=== PATIENT | male | born 1955 | race Caucasian/White ===

== ENCOUNTER 2017-05-03 19:04 | Emergency (ER) | payer OTHER ==
--- NOTE | 2017-05-03 20:48 | ERPHSYRPT ---
- History of Present Illness Time Seen by Provider: 05/03/17 19:44 Source: patient Patient Subjective Stated Complaint: had rt shoulder surgery yesterday and was outpt. 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 rt radial pulse present. Triage Nursing Assessment: see above Physician History: CC: bleeding on dressing Hx: 61 y/o patient had right rotator cuff surgery per Dr Bill yesterday at [facility]. He has Q ball pump. Pain ok taking norco. He noted blood saturating the dressing tonite so he came to ER. No fever or chills. No blood thinners. No injury. No other bleeding. ILL: COPD MEds: [place] Social: Smoker Allergies/Adverse Reactions: No Known Drug Allergies Allergy (Verified 05/03/17 19:40) Home Medications: Hydrocodone/Acetaminophen [[place] 5-325 Tablet] 1 each PO QIDPRN PRN 05/03/17 [ History] Hx Tetanus, Diphtheria Vaccination/Date Given: Yes Hx Influenza Vaccination/Date Given: No Hx Pneumococcal Vaccination/Date Given: No Immunizations Up to Date: Yes - Review of Systems Constitutional: No Fever, No Chills Musculoskeletal: Joint Pain (right shoulder post op) - Past Medical History Pertinent Past Medical History: Yes Neurological History: No Pertinent History ENT History: No Pertinent History Cardiac History: No Pertinent History Respiratory History: No Pertinent History Endocrine Medical History: No Pertinent History Musculoskeletal History: Arthritis GI Medical History: No Pertinent History History: No Pertinent History Psycho-Social History: Anxiety, Panic Disorder Male Reproductive Disorders: No Pertinent History Other Medical History: shoulder - Past Surgical History Past Surgical History: Yes Neuro Surgical History: No Pertinent History Cardiac: No Pertinent History Respiratory: No Pertinent History Gastrointestinal: Hernia Repair Genitourinary: No Pertinent History Musculoskeletal: Orthopedic Surgery Male Surgical History: No Pertinent History Other Surgical History: TONSILS. EXPLORATORY ABD SURGURY, shoulder surgery , knee , both hands - Social History Smoking Status: Current every day smoker How long have you smoked: over 30 yr Exposure to second hand smoke: Yes Drug Use: none Patient Lives Alone: No - Nursing Vital Signs Nursing Vital Signs: Initial Vital Signs Temperature 98.1 F Temperature Source Oral Pulse Rate 83 Respiratory Rate 18 Blood Pressure [Left Arm] 134/91 Pain Intensity 7 - Physical Exam General Appearance: alert Eyes, Ears, Nose, Throat Exam: moist mucous membranes Neck Exam: normal inspection, non-tender, supple Cardiovascular/Respiratory Exam: regular rate/rhythm Neuro/Tendon Exam: normal sensation, normal motor functions Mental Status Exam: alert, oriented x 3, cooperative Skin Exam: warm, dry, No ecchymosis SpO2 Interpretation: normal SpO2: 96 Oxygen Delivery: Room Air Comments: right shoulder dressing had mild to moderate blood saturating. It was taken down. Wound intact and clear. Mild blood dried but no active bleeding. Redressed wound. Paged Dr Bill. Advised follow up. Will release to continue post op wound care. - Course Nursing assessment & vital signs reviewed: Yes Ordered Tests: Active Orders 24 hr Category Date Time Status Wound Care STAT Care 05/03/17 19:48 Active - Departure Time of Disposition: 20:48 Departure Disposition: Home Clinical Impression: post op bleeding right shoulder Condition: Stable Critical Care Time: No Referrals: LINH MCMILLAN [Primary Care Provider] - VERONICA BILL [ACTIVE STAFF] - Instructions: Rotator Cuff Repair Additional Instructions: Continue normal post op care as already instructed. Call Dr Bill in AM. Return for problems or concerns.
[2017-05-03 20:56] VITALS: BP 128/63; PULSE 86; O2SAT 97
== END 2017-05-03 20:55 | disposition home or self-care (01) ==
LOC: ED 19:04
DX: T81.31XA Disruption of external operation (surgical) wound, not elsewhere classified, initial encounter (principal); M96.831 Postprocedural hemorrhage of a musculoskeletal structure following other procedure
CPT/HCPCS: 99284

== ENCOUNTER 2017-09-15 23:30 | Emergency (ER) | payer OTHER ==
--- NOTE | 2017-09-16 00:24 | ERPHSYRPT ---
- History of Present Illness Time Seen by Provider: 09/16/17 00:18 Source: patient, family Exam Limitations: no limitations Patient Subjective Stated Complaint: sneezed and had bleeding from surgical site to right shoulder Triage Nursing Assessment: old blood noted on dressing. dressing removed from right shoulder and no active bleeding noted. vick intact and suture line clean and dry. Physician History: The patient is a 61-year-old male status post right rotator cuff repair 3 days ago complaining that prior to arrival he sneezed and blood-tinged liquid came out of his wound. The wound does not hurt anymore than it had been since surgery. His was concerned about the blood. It is no longer bleeding. Timing/Duration: today, hour(s) (1) Severity: mild Associated Symptoms: denies symptoms Allergies/Adverse Reactions: No Known Drug Allergies Allergy (Verified 05/03/17 19:40) Home Medications: Hydrocodone/Acetaminophen [[place] 5-325 Tablet] 1 each PO QIDPRN PRN 05/03/17 [ History] Hx Tetanus, Diphtheria Vaccination/Date Given: Yes Hx Influenza Vaccination/Date Given: No Hx Pneumococcal Vaccination/Date Given: No Immunizations Up to Date: Yes - Review of Systems Constitutional: No Fever, No Chills Eyes: No Symptoms Ears, Nose, & Throat: No Symptoms Respiratory: No Cough, No Dyspnea Cardiac: No Chest Pain, No Edema, No Syncope Abdominal/Gastrointestinal: No Abdominal Pain, No Nausea, No Vomiting, No Diarrhea Genitourinary Symptoms: No Dysuria Musculoskeletal: No Back Pain, No Neck Pain Skin: Other (healing wound) Neurological: No Dizziness, No Focal Weakness, No Sensory Changes Psychological: No Symptoms Endocrine: No Symptoms Hematologic/Lymphatic: No Symptoms Immunological/Allergic: No Symptoms All Other Systems: Reviewed and Negative - Past Medical History Pertinent Past Medical History: Yes Neurological History: Stroke ENT History: No Pertinent History Cardiac History: Other Respiratory History: COPD Endocrine Medical History: No Pertinent History Musculoskeletal History: No Pertinent History GI Medical History: No Pertinent History History: No Pertinent History Psycho-Social History: Anxiety, Panic Disorder Male Reproductive Disorders: No Pertinent History Other Medical History: shoulder - Past Surgical History Past Surgical History: Yes Neuro Surgical History: No Pertinent History Cardiac: No Pertinent History Respiratory: No Pertinent History Gastrointestinal: Hernia Repair Genitourinary: No Pertinent History Musculoskeletal: Orthopedic Surgery Male Surgical History: No Pertinent History Other Surgical History: TONSILS. EXPLORATORY ABD SURGURY, shoulder surgery , knee , both hands - Social History Smoking Status: Current every day smoker How long have you smoked: over 30 yr Exposure to second hand smoke: No Drug Use: none Patient Lives Alone: No - Nursing Vital Signs Nursing Vital Signs: Initial Vital Signs Temperature 97.7 F 09/16/17 00:02 Pulse Rate 72 09/16/17 00:02 Respiratory Rate 18 09/16/17 00:02 Blood Pressure 128/84 09/16/17 00:02 O2 Sat by Pulse Oximetry 95 09/16/17 00:02 Pain Scale Pain Intensity 3 - Physical Exam General Appearance: no apparent distress, alert Eye Exam: PERRL/EOMI, eyes nml inspection Ears, Nose, Throat Exam: normal ENT inspection, TMs normal, pharynx normal, moist mucous membranes Neck Exam: normal inspection, non-tender, supple, full range of motion Respiratory Exam: normal breath sounds, lungs clear, No respiratory distress Cardiovascular Exam: regular rate/rhythm, normal heart sounds, normal peripheral pulses Gastrointestinal/Abdomen Exam: soft, normal bowel sounds, No tenderness, No mass Back Exam: normal inspection, normal range of motion, No CVA tenderness, No vertebral tenderness Extremity Exam: normal inspection, pelvis stable, limited range of motion ( right shoulder), tenderness Neurologic Exam: alert, oriented x 3, cooperative, normal mood/affect, nml cerebellar function, nml station & gait, sensation nml, No motor deficits Skin Exam: normal color, warm, dry, other (healing surgical wound to right shoulder currently without discharge. There is dried serosanquinous material on pt's shirt.), No rash Lymphatic Exam: No adenopathy SpO2 Interpretation: normal SpO2: 95 Oxygen Delivery: Room Air - Progress Progress: improved Counseled pt/family regarding: diagnosis - Departure Time of Disposition: 00:27 Departure Disposition: Home Clinical Impression: Encounter for post surgical wound check Condition: Stable Critical Care Time: No Referrals: LINH MCMILLAN [Primary Care Provider] -
[2017-09-16 00:40] VITALS: BP 121/74; PULSE 68; O2SAT 96
== END 2017-09-16 00:40 | disposition home or self-care (01) ==
LOC: ED 23:30
DX: Z48.01 Encounter for change or removal of surgical wound dressing (principal)
CPT/HCPCS: 99281

== ENCOUNTER 2020-06-09 03:45 | Inpatient (IN) | payer MEDICARE ==
--- NOTE | 2020-06-09 03:55 | ERPHSYRPT ---
- History of Present Illness Time Seen by Provider: 06/09/20 03:51 Source: patient, EMS Exam Limitations: clinical condition Physician History: This patient is a 64-year-old white male with a history of COPD, anxiety and panic disorder who states he fell yesterday onto his right chest and right side lower abdomen. Patient has had worsening pain and trouble breathing. Patient has not been eating or drinking well. He was vomiting today as well. Also has hydrocodone patient's smokes significant amount of cigarettes per day. Occurred: yesterday Reason for Fall: slipped Injuries/Pain Location: chest, abdomen Loss of Consciousness: no loss of consciousness Quality: sharpness, stabbing Severity of Pain-Max: moderate Severity of Pain-Current: moderate Modifying Factors: Improves With: movement Associated Symptoms (Fall): abdominal pain, chest pain, shortness of breath Allergies/Adverse Reactions: No Known Drug Allergies Allergy (Verified 06/09/20 03:49) Home Medications: Albuterol Common Canister [Ventolin Common Canister] 2 puff PO DAILY PRN 06/09/20 [History] Fluticasone/Vilanterol [Breo Ellipta 200-25 Mcg INH] 2 spray PO DAILY 06/09/20 [History] Hydrocodone/Acetaminophen [Hydrocodone-Acetamin 7.5-325] 1 tab PO QID PRN 06/09/20 [History] Tiotropium [place] [Spiriva Respimat] 2 spray PO DAILY 06/09/20 [History] Hx Tetanus, Diphtheria Vaccination/Date Given: Yes Hx Influenza Vaccination/Date Given: No Hx Pneumococcal Vaccination/Date Given: No Travel Risk - International Travel Have you traveled outside of the country in past 3 weeks: No - Coronavirus Screening Are you exhibiting any of the following symptoms?: No Close contact with a COVID-19 positive Pt in past 14-21 Days: No - Review of Systems Constitutional: No Symptoms Eyes: No Symptoms Ears, Nose, & Throat: No Symptoms Respiratory: Dyspnea Cardiac: Other (Right posterior lateral chest wall/rib pain) Abdominal/Gastrointestinal: Abdominal Pain (Right lower lateral abdominal pain) Genitourinary Symptoms: No Symptoms Musculoskeletal: Fall, Injury Skin: No Symptoms Neurological: No Symptoms Psychological: No Symptoms Endocrine: No Symptoms Hematologic/Lymphatic: No Symptoms Immunological/Allergic: No Symptoms All Other Systems: Reviewed and Negative - Past Medical History Pertinent Past Medical History: Yes Neurological History: Stroke ENT History: No Pertinent History Cardiac History: Other Respiratory History: COPD Endocrine Medical History: No Pertinent History Musculoskeletal History: No Pertinent History GI Medical History: No Pertinent History History: No Pertinent History Psycho-Social History: Anxiety, Panic Disorder Male Reproductive Disorders: No Pertinent History Other Medical History: shoulder - Past Surgical History Past Surgical History: Yes Neuro Surgical History: No Pertinent History Cardiac: No Pertinent History Respiratory: No Pertinent History Gastrointestinal: Hernia Repair Genitourinary: No Pertinent History Musculoskeletal: Orthopedic Surgery Male Surgical History: No Pertinent History Other Surgical History: TONSILS. EXPLORATORY ABD SURGURY, shoulder surgery , knee , both hands - Social History Smoking Status: Current every day smoker How long have you smoked: over 30 yr Exposure to second hand smoke: No Drug Use: none Patient Lives Alone: No - Nursing Vital Signs Nursing Vital Signs: Initial Vital Signs Pulse Rate 100 H 06/09/20 03:46 Respiratory Rate 28 H 06/09/20 03:46 Blood Pressure 118/88 06/09/20 03:46 O2 Sat by Pulse Oximetry 93 L 06/09/20 03:46 Pain Scale Pain Intensity 8 - Albert Coma Score Best Eye Response (Albert): (4) open spontaneously Best Verbal Response (Albert): (5) oriented Best Motor Response ([place]): (6) obeys commands Albert Total: 15 - Physical Exam General Appearance: moderate distress, alert, anxiety, thin Head Injury: no evidence of injury Eye Exam: PERRL/EOMI, eyes nml inspection ENT Exam: airway nml, nml ext.inspection Neck Exam: supple, trachea midline, full range of motion, normal alignment, normal inspection Respiratory/Chest Exam: chest tenderness, respiratory distress (Mild), decreased breath sounds, rib tenderness (Right lateral and posterior lateral) Cardiovascular Exam: normal heart sounds, regular rate/rhythm, normal peripheral pulses Gastrointestinal Exam: soft, normal bowel sounds, tenderness, No guarding, No rebound Rectal Exam: not done Back Exam: normal inspection, normal range of motion, No CVA tenderness, No vertebral tenderness Extremity Exam: normal inspection, normal range of motion, other Neurologic Exam: alert, oriented x 3, cooperative, supervisor metalizing II-XII nml as tested, sensation nml Skin Exam: normal color, warm, dry SpO2 Interpretation: borderline oxygenation O2 Delivery: Room Air - Course Nursing assessment & vital signs reviewed: Yes EKG Interpreted by Me: RATE (102), Sinus Rhythm, NORMAL AXIS, NORMAL INTERVALS, Other (PVCs are present. There is no evidence of acute ischemic changes. No significant change from an EKG dated 02/17/2017) Ordered Tests: Active Orders 24 hr Category Date Time Status EKG-ER Only STAT Care 06/09/20 03:56 Active IV Insertion STAT Care 06/09/20 03:56 Active ABDOMEN AND PELVIS W/0 CONTRAS [CT] Stat Exams 06/09/20 03:57 Taken CHEST WITHOUT CONTRAST [CT] Stat Exams 06/09/20 03:59 Taken AMYLASE Stat Lab 06/09/20 04:22 Completed BLOOD CULTURE Stat Lab 06/09/20 04:22 Received CBC W DIFF Stat Lab 06/09/20 04:22 Completed CMP Stat Lab 06/09/20 04:22 Completed LIPASE Stat Lab 06/09/20 04:22 Completed Lactic Acid Stat Lab 06/09/20 04:35 Completed Manual Differential NC Stat Lab 06/09/20 04:22 Completed TROPONIN Q3H Lab 06/09/20 04:23 Completed TROPONIN Q3H Lab 06/09/20 07:00 Ordered TROPONIN Q3H Lab 06/09/20 10:00 Ordered TROPONIN Q3H Lab 06/09/20 13:00 Ordered TROPONIN Q3H Lab 06/09/20 16:00 Ordered UA W/RFX UR CULTURE Stat Lab 06/09/20 03:57 Ordered Respiratory Therapy Assessment DAILY RT 06/09/20 04:20 Active Transfer Order Routine Transfer 06/09/20 Ordered Medication Summary Generic Name Dose Route Start Last Admin Trade Name Freq PRN Reason Stop Dose Admin Meropenem 1 g/ Sodium Chloride 100 mls @ 200 mls/hr 06/09/20 05:52 06/09/20 06:04 IV 06/09/20 06:21 200 mls/hr STAT ONE Administration Discontinued Medications Generic Name Dose Route Start Last Admin Trade Name Freq PRN Reason Stop Dose Admin Albuterol/Ipratropium 3 ml 06/09/20 04:18 06/09/20 04:21 Duoneb 0.5-3 Mg/3 Ml Neb IH 06/09/20 04:19 3 ml STAT ONE Administration Albuterol/Ipratropium Confirm 06/09/20 04:19 Duoneb 0.5-3 Mg/3 Ml Neb Administered 06/09/20 04:20 Dose 3 ml IH .STK-MED ONE Sodium Chloride 1,000 mls @ 999 mls/hr 06/09/20 03:56 06/09/20 04:20 Sodium Chloride 0.9% 1000 Ml IV 06/09/20 04:56 999 mls/hr .Q1H1M STA Administration Sodium Chloride Confirm 06/09/20 04:17 Sodium Chloride 0.9% 1000 Ml Administered 06/09/20 04:18 Dose 1,000 mls @ ud .ROUTE .STK-MED ONE Sodium Chloride Confirm 06/09/20 06:03 Sodium Chloride 100ml Mini-Bag Plus Administered 06/09/20 06:04 Dose 100 mls @ ud IV .STK-MED ONE Lorazepam 1 mg 06/09/20 03:58 06/09/20 04:21 Ativan 2 Mg/1 Ml Vial IV 06/09/20 03:59 1 mg STAT ONE Administration Lorazepam Confirm 06/09/20 04:17 Ativan 2 Mg/1 Ml Vial Administered 06/09/20 04:18 Dose 2 mg .ROUTE .STK-MED ONE Meropenem Confirm 06/09/20 06:03 Merrem 1 Gm Administered 06/09/20 06:04 Dose 1 g IV .STK-MED ONE Morphine Sulfate 4 mg 06/09/20 03:56 06/09/20 04:20 Morphine Sulfate 4 Mg Inj IV 06/09/20 03:57 4 mg STAT ONE Administration Morphine Sulfate Confirm 06/09/20 04:17 Morphine Sulfate 4 Mg Inj Administered 06/09/20 04:18 Dose 4 mg .ROUTE .STK-MED ONE Morphine Sulfate 4 mg 06/09/20 04:54 06/09/20 04:59 Morphine Sulfate 4 Mg Inj IV 06/09/20 04:55 4 mg STAT ONE Administration Morphine Sulfate Confirm 06/09/20 04:58 Morphine Sulfate 4 Mg Inj Administered 06/09/20 04:59 Dose 4 mg .ROUTE .STK-MED ONE Ondansetron HCl 4 mg 06/09/20 03:56 06/09/20 04:20 Zofran 4 Mg/2 Ml Vial IV 06/09/20 03:57 4 mg STAT ONE Administration Ondansetron HCl Confirm 06/09/20 04:16 Zofran 4 Mg/2 Ml Vial Administered 06/09/20 04:17 Dose 4 mg .ROUTE .STK-MED ONE Lab/Rad Data: Laboratory Result Diagrams 06/09/20 04:22 06/09/20 04:22 Laboratory Results 06/09/20 06/09/20 06/09/20 Range/Units 04:35 04:23 04:22 WBC (4.0-10.5) K/mm3 RBC (4.1-5.6) M/mm3 Hgb (12.5-18.0) gm/dl Hct (42-50) % MCV (78-100) fl MCH (26-32) pg MCHC (32-36) g/dl RDW (11.5-14.0) % Plt Count (150-450) K/mm3 MPV (7.5-11.0) fl Sodium 135 L (137-145) mmol/L Potassium 3.9 (3.5-5.1) mmol/L Chloride 102 (98-107) mmol/L Carbon Dioxide 20 L (22-30) mmol/L Anion Gap 17.2 H (5-15) MEQ/L BUN 26 H (9-20) mg/dL Creatinine 2.84 H (0.66-1.25) mg/dL Estimated GFR 24.1 ML/MIN Glucose 121 H (74-106) mg/dL Lactic Acid 4.2 H (0.4-2.0) Calcium 8.5 (8.4-10.2) mg/dL Total Bilirubin 0.50 (0.2-1.3) mg/dL AST 22 (17-59) U/L ALT 17 (0-50) U/L Alkaline Phosphatase 62 (38-126) U/L Troponin I < 0.012 (0.000-0.034) ng/mL Serum Total Protein 7.3 (6.3-8.2) g/dL Albumin 3.9 (3.5-5.0) g/dL Amylase 40 (30-110) U/L Lipase 14 L (23-300) U/L 06/09/20 Range/Units 04:22 WBC 2.0 L (4.0-10.5) K/mm3 RBC 3.90 L (4.1-5.6) M/mm3 Hgb 10.0 L (12.5-18.0) gm/dl Hct 32.5 L (42-50) % MCV 83.3 (78-100) fl MCH 25.6 L (26-32) pg MCHC 30.8 L (32-36) g/dl RDW 20.0 H (11.5-14.0) % Plt Count 424 (150-450) K/mm3 MPV 8.9 (7.5-11.0) fl Sodium (137-145) mmol/L Potassium (3.5-5.1) mmol/L Chloride (98-107) mmol/L Carbon Dioxide (22-30) mmol/L Anion Gap (5-15) MEQ/L BUN (9-20) mg/dL Creatinine (0.66-1.25) mg/dL Estimated GFR ML/MIN Glucose (74-106) mg/dL Lactic Acid (0.4-2.0) Calcium (8.4-10.2) mg/dL Total Bilirubin (0.2-1.3) mg/dL AST (17-59) U/L ALT (0-50) U/L Alkaline Phosphatase (38-126) U/L Troponin I (0.000-0.034) ng/mL Serum Total Protein (6.3-8.2) g/dL Albumin (3.5-5.0) g/dL Amylase (30-110) U/L Lipase (23-300) U/L - Progress Progress: improved, re-examined Progress Note: 06/09/20 06:02 The CAT scan of the chest reveals a mid to lower right lung consolidation which is consistent with pneumonia. There is a small right pleural effusion. There is also a 4 mm right lower lobe pulmonary nodule. A CAT scan of the abdomen and pelvis reveals no acute intra-abdominal or intrapelvic organ injury or abnormality Medical decision making: This patient has what appears to be a right lung pneumonia. I spoke with Dr. Knutson. I reviewed the patient history, condition, physical findings, EKG labs and CAT scan results with her. We will admit the patient into the hospital provide IV hydration and IV antibiotics and pain control. We will repeat lab. Counseled pt/family regarding: lab results, diagnosis, need for follow-up, rad results - Departure Departure Disposition: In-patient Admission Clinical Impression: Pneumonia involving right lung, Leukopenia, Anemia, Acute renal insufficiency Condition: Fair Critical Care Time: No Referrals: LINH MCMILLAN [Primary Care Provider] -
[2020-06-09] MEDS ORDERED: MORPHINE SULFATE 4 MG INJ IV ONE ×2 (03:56→04:54)
[2020-06-09] MEDS ORDERED: Zofran 4 MG/2 ML VIAL IV ONE (03:56)
[2020-06-09] MEDS ORDERED: Ativan 2 MG/1 ML VIAL IV ONE (03:58)
[2020-06-09] MEDS ORDERED: Zofran 4 MG/2 ML VIAL ONE (04:16)
[2020-06-09] MEDS ORDERED: Ativan 2 MG/1 ML VIAL ONE (04:17)
[2020-06-09] MEDS ORDERED: Sodium Chloride 0.9% 1000 ML 1,000 ML ONE (04:17)
[2020-06-09] MEDS ORDERED: MORPHINE SULFATE 4 MG INJ ONE ×2 (04:17→04:58)
[2020-06-09] MEDS ORDERED: DUONEB 0.5-3 MG/3 ml Neb IH ONE ×2 (04:18→04:19)
[2020-06-09] MEDS: Sodium Chloride 0.9% 1000 ML 1,000 ML IV STA (04:20)
[2020-06-09 04:36] LABS: Hematocrit 32.5 % (42-50); Mean Cell Volume 83.3 fl (78-100); Mean Corpuscular Hemoglobin 25.6 pg (26-32); Mean Corpuscular Hgb Concent. 30.8 g/dl (32-36); Mean Platelet Volume 8.9 fl (7.5-11.0); Platelet Count 424 K/mm3 (150-450)
[2020-06-09 04:52] LABS: ALBUMIN 3.9 g/dL (3.5-5.0); ANION GAP 17.2 MEQ/L (5-15); BILIRUBIN,TOTAL 0.5 mg/dL (0.2-1.3); Calcium 8.5 mg/dL (8.4-10.2); Creatinine 1 2.84 mg/dL (0.66-1.25); Potassium 3.9 mmol/L (3.5-5.1); Total Protein 7.3 g/dL (6.3-8.2)
[2020-06-09] MEDS ORDERED: Merrem 1 GM 1 G in Sodium Chloride 100ML MINI-BAG PLUS 100 ML IV ONE (05:52)
[2020-06-09] MEDS ORDERED: Merrem 1 GM IV ONE (06:03)
[2020-06-09] MEDS ORDERED: Sodium Chloride 100ML MINI-BAG PLUS 100 ML IV ONE (06:03)
[2020-06-09] MEDS ORDERED: Zofran 4 MG/2 ML VIAL IV PRN (06:59)
[2020-06-09] MEDS ORDERED: TYLENOL 325 MG PO PRN (06:59)
[2020-06-09 07:32] LABS: Appearance SLIGHTLY CLOUDY (CLEAR); Bacteria RARE /HPF (NEGATIVE); Bilirubin NEGATIVE (NEGATIVE); Blood NEGATIVE Ery/ul (0-5); Glucose NEGATIVE (NEGATIVE); Ketones NEGATIVE (NEGATIVE); Leukocyte Esterase NEGATIVE (NEGATIVE); Mucus SLIGHT /HPF (NEGATIVE); Nitrite NEGATIVE (NEGATIVE); Protein,Urine Dip 30 (Negative); RBC 0-2 /HPF (0-2); Specific Gravity 1.016 (1.005-1.025); Urobilinogen NEGATIVE mg/dL (0-1)
[2020-06-09 07:49] LABS: BAND 27 % (0.0-2.0); Lymphocytes 26 % (24-44); Monocyte 9 % (0.0-12.0); Neutrophils 38 % (36.-66.); Platelet Estimate NORMAL (NORMAL); Total Cells Counted 100
[2020-06-09 07:50] LABS: Hypochromia 1+; Polychromasia 1+
[2020-06-09] MEDS ORDERED: Spiriva 18 Mcg/Cap Inhaler IH ONE (08:11)
[2020-06-09] MEDS: VENTOLIN COMMON CANISTER IH SCH ×2 (08:15→20:08)
[2020-06-09] MEDS: Spiriva 18 Mcg/Cap Inhaler IH SCH (08:15)
[2020-06-09] MEDS: Advair Hfa 115/21 Common canister IH SCH ×2 (08:15→20:08)
--- NOTE | 2020-06-09 08:54 | XRAY ---
Indication: Right chest wall pain following blunt trauma. Short of breath and decreased breath sounds. Multiple contiguous axial images obtained through the chest without contrast as ordered. Comparison: None Lungs demonstrates diffuse pulmonary emphysema. Right middle and right lower lobes demonstrates consolidating airspace disease with small effusion. Minimal lingular and left base atelectasis/scarring. Heart is not enlarged. Aorta is normal in course and caliber. No pathologic mediastinal/hilar lymphadenopathy. Bony thorax intact with mild osteopenia, minimal degenerative changes throughout the spine, and old right fracture. CT abdomen/pelvis reported separately. Impression: 1. Right middle and right lower lobe consolidating airspace disease with small effusion. 2. Pulmonary emphysema and chronic bony findings.
--- NOTE | 2020-06-09 08:58 | XRAY ---
Indication: Right chest wall pain following blunt trauma. Short of breath and decreased breath sounds. Multiple contiguous axial images obtained through the abdomen and pelvis without contrast as ordered. Comparison: None CT chest reported separately. Study mildly degraded by respiration artifact. Right hip arthroplasty with intact bipolar prosthesis also produces beam artifact limiting images at this level. Noncontrasted stomach and bowel loops appear nonobstructed. Normal air-filled appendix. No free fluid/air. Gallbladder moderately distended without gallstones or biliary distention. Remaining liver, pancreas, spleen, adrenal glands, kidneys, ureters, and bladder appear grossly unremarkable for noncontrast exam. Mild scattered aortoiliac calcifications without AAA. Osseous structures demonstrate mild osteopenia, bilateral L5 spondylolysis with 6 mm spondylolisthesis and advanced L5-S1 degenerative changes, and old right L4 transverse process fracture. Impression: 1. Respiration artifact and beam artifact. 2. Distended gallbladder without gallstones. Gallbladder sonogram may yield further information if there remains clinical concern. 3. Chronic bony findings. 4. Remaining CT abdomen/pelvis without contrast exam grossly negative. Comment: Preliminary interpretation was made by [facility]. No critical discrepancy.
[2020-06-09] MEDS: MORPHINE SULFATE 4 MG INJ IV PRN ×2 (10:20→14:33)
[2020-06-09] MEDS ORDERED: Merrem 1 GM 1 G in Sodium Chloride 100ML MINI-BAG PLUS 100 ML IV SCH (14:00)
[2020-06-09] MEDS ORDERED: PROVENTIL 2.5 MG/3 ML NEB IH ONE (14:00)
[2020-06-09] MEDS ORDERED: DUONEB 0.5-3 MG/3 ml Neb IH PRN (14:07)
[2020-06-09] MEDS ORDERED: PROVENTIL 2.5 MG/3 ML NEB IH PRN (14:29)
[2020-06-09] MEDS ORDERED: Lactated Ringers 500 ML IV ONE ×2 (17:09→18:45)
[2020-06-09] MEDS ORDERED: Cyclobenzaprine 10 MG PO PRN (17:28)
[2020-06-09 17:40] LABS: A-aADO2 279; ABG HEMOGLOBIN 10.1; ABG POTASSIUM 4.9 (3.5-5.1); ARTERIAL BLD GAS O2 SATURATION 93.7 % (95-100); ARTERIAL BLOOD GAS FIO2 55 %; ARTERIAL BLOOD GAS PCO2 37 mmHg (35-45); ARTERIAL BLOOD GAS PO2 67 mmHg (75-100); ARTERIAL BLOOD GAS pH 7.31 (7.35-7.45); CARBOXYHEMOGLOBIN 1.2 % THgb (0.0-6.9); HCO3- 18.6 (22-28); HGB O2 SAT 92.2 g/dF (94-100); Methhemoglobin 0.4 % (1.4-1.5); paO2 pAO1 0.19
[2020-06-09 17:41] LABS: ABG SITE RIGHT RADIAL; ALLEN TEST OK? YES
--- NOTE | 2020-06-09 17:55 | PCM.HP ---
History of Present Illness - Chief Complaint Chief Complaint: Right pneumonia; leukopenia; anemia; acute renal insufficiency History of Present Illness: is a 64 year old male pt of Dr. Newman with COPD who was admitted through ER c/o R sided rib pain and SOB. He had increase in both at 3 am and called 911; had fallen against a knob onto his R side. In ER he was noted to have WBC of 2. His creatinine was elevated; had not been tolerating po. His interview is difficult d/t tachypnea and R sided rib pain. XR in ER all neg. CT chest w/o contrast showed RML and RLL pneumonia. He was not COVID tested until he came to the med surg floor, so I had to wait until after his result was returned to see him. - Review of Systems Constitutional: Weakness Respiratory: Cough, Short Of Breath Cardiac: Chest Pain All Other Systems: Unable due to condition Medications & Allergies Home Medications: Home Medication List Albuterol Common Canister [Ventolin Common Canister] 2 puff PO DAILY PRN 06/09/20 [History Confirmed 06/09/20] Amitriptyline HCl 25 mg [Elavil 25 mg] 25 mg PO DAILY 06/09/20 [History Confirmed 06/09/20] Fluticasone/Vilanterol [Breo Ellipta 200-25 Mcg INH] 2 spray PO DAILY 06/09/20 [History Confirmed 06/09/20] Hydrocodone/Acetaminophen [Hydrocodone-Acetamin 7.5-325] 1 tab PO QID PRN [History Confirmed 06/09/20] Tiotropium [place] [Spiriva Respimat] 2 spray PO DAILY 06/09/20 [History Confirmed 06/09/20] Allergies/Adverse Reactions: Allergies Allergy/AdvReac Type Severity Reaction Status Date / Time No Known Drug Allergies Allergy Verified 06/09/20 03:49 - Past Medical History Past Medical History: Yes Neurological History: Stroke ENT History: No Pertinent History Cardiac History: Other Respiratory History: COPD Endocrine Medical History: No Pertinent History Musculoskelatal History: No Pertinent History GI Medical History: No Pertinent History History: No Pertinent History Pyscho-Social History: Anxiety, Panic Disorder Male Reproductive Disorders: No Pertinent History Comment: shoulder; alcoholism/heavy drinker - Past Surgical History Past Surgical History: Yes Neuro Surgical History: No Pertinent History Cardiac History: No Pertinent History Respiratory Surgery: No Pertinent History GI Surgical History: Hernia Repair Genitourinary Surgical Hx: No Pertinent History Musculskeletal Surgical Hx: Orthopedic Surgery Male Surgical History: No Pertinent History Other Surgical History: TONSILS. EXPLORATORY ABD SURGURY, shoulder surgery , knee , both hands - Social History Smoking Status: Current every day smoker How long have you smoked: over 30 yr Exposure to second hand smoke: No Alcohol: Heavy, Daily Drug Use: none - Physical Exam Vital Signs: Vital Signs - 24 hr Temp Pulse Resp BP Pulse Ox 06/09/20 16:00 98.0 F 97 H 22 101/69 93 L 06/09/20 12:00 98.1 F 104 H 22 102/61 96 06/09/20 09:28 104 H 24 91 L 06/09/20 08:36 98.2 F 96 H 24 107/71 92 L 06/09/20 07:39 98.2 F 96 H 24 107/71 92 L 06/09/20 06:50 100 H 22 102/70 93 L 06/09/20 06:00 97 H 20 90/69 96 06/09/20 05:00 98 H 18 107/70 92 L 06/09/20 04:46 93 H 30 H 106/67 92 L 06/09/20 04:21 104 H 28 H 94 L 06/09/20 03:46 99.8 F 100 H 28 H 118/88 93 L Oxygen-Last 24 hours Oxygen Flowrate (L/min)-RT 3 General Appearance: moderate distress, anxiety Neurologic Exam: alert, cooperative Eye Exam: eyes nml inspection Ears, Nose, Throat Exam: moist mucous membranes Neck Exam: normal inspection Respiratory Exam: diminished breath sounds (fair air exchange), rhonchi (bibasilar), wheezing (scattered), other (R chest wall diffusely ttp. No crepitus or step offs.), No crackles/rales Cardiovascular Exam: regular rate/rhythm, normal heart sounds, No murmur Gastrointestinal/Abdomen Exam: soft, normal bowel sounds, tenderness (diffuse, but worse on the R) Extremity Exam: No pedal edema, No swelling Skin Exam: normal color, warm, dry, No rash Results - Labs Lab/Micro Results: Lab Results-Last 24 Hours 06/09/20 06/09/20 06/09/20 Range/Units 03:57 04:22 04:22 WBC 2.0 L (4.0-10.5) K/mm3 RBC 3.90 L (4.1-5.6) M/mm3 Hgb 10.0 L (12.5-18.0) gm/dl Hct 32.5 L (42-50) % MCV 83.3 (78-100) fl MCH 25.6 L (26-32) pg MCHC 30.8 L (32-36) g/dl RDW 20.0 H (11.5-14.0) % Plt Count 424 (150-450) K/mm3 MPV 8.9 (7.5-11.0) fl Segmented Neutrophils 38 (36.-66.) % Band Neutrophils 27 H (0.0-2.0) % Lymphocytes (Manual) 26 (24-44) % Monocytes (Manual) 9 (0.0-12.0) % Hypochromia 1+ Platelet Estimate NORMAL (NORMAL) RBC Morphology ABNORMAL Polychromasia 1+ Sodium 135 L (137-145) mmol/L Potassium 3.9 (3.5-5.1) mmol/L Chloride 102 (98-107) mmol/L Carbon Dioxide 20 L (22-30) mmol/L Anion Gap 17.2 H (5-15) MEQ/L BUN 26 H (9-20) mg/dL Creatinine 2.84 H (0.66-1.25) mg/dL Estimated GFR 24.1 ML/MIN Glucose 121 H (74-106) mg/dL Lactic Acid (0.4-2.0) Calcium 8.5 (8.4-10.2) mg/dL Total Bilirubin 0.50 (0.2-1.3) mg/dL AST 22 (17-59) U/L ALT 17 (0-50) U/L Alkaline Phosphatase 62 (38-126) U/L Troponin I (0.000-0.034) ng/mL Serum Total Protein 7.3 (6.3-8.2) g/dL Albumin 3.9 (3.5-5.0) g/dL Amylase 40 (30-110) U/L Lipase 14 L (23-300) U/L Urine Color YELLOW (YELLOW) Urine Appearance SLIGHTLY CLOUDY (CLEAR) Urine pH 5.0 (5-6) Ur Specific [place] 1.016 (1.005-1.025) Urine Protein 30 (Negative) Urine Ketones NEGATIVE (NEGATIVE) Urine Blood NEGATIVE (0-5) Todd/ul Urine Nitrite NEGATIVE (NEGATIVE) Urine Bilirubin NEGATIVE (NEGATIVE) Urine Urobilinogen NEGATIVE (0-1) mg/dL Ur Leukocyte Esterase NEGATIVE (NEGATIVE) Urine WBC (Auto) 11-15 (0-5) /HPF Urine RBC (Auto) 0-2 (0-2) /HPF U Hyaline Cast (Auto) 3-5 (0-2) /LPF U Epithel Cells (Auto) NONE (FEW) /HPF Urine Bacteria (Auto) RARE (NEGATIVE) /HPF Unidentified Crystals 2-5 (NEGATIVE) /HPF Other Casts (Auto) NEGATIVE (NEGATIVE) /LPF Urine Mucus (Auto) SLIGHT (NEGATIVE) /HPF Urine Culture Reflexed ORDERED SEPARATELY (NO) Urine Glucose NEGATIVE (NEGATIVE) mg/dL SARS-CoV-2 (PCR) (NEGATIVE) 06/09/20 06/09/20 06/09/20 Range/Units 04:23 04:35 06:40 WBC (4.0-10.5) K/mm3 RBC (4.1-5.6) M/mm3 Hgb (12.5-18.0) gm/dl Hct (42-50) % MCV (78-100) fl MCH (26-32) pg MCHC (32-36) g/dl RDW (11.5-14.0) % Plt Count (150-450) K/mm3 MPV (7.5-11.0) fl Segmented Neutrophils (36.-66.) % Band Neutrophils (0.0-2.0) % Lymphocytes (Manual) (24-44) % Monocytes (Manual) (0.0-12.0) % Hypochromia Platelet Estimate (NORMAL) RBC Morphology Polychromasia Sodium (137-145) mmol/L Potassium (3.5-5.1) mmol/L Chloride (98-107) mmol/L Carbon Dioxide (22-30) mmol/L Anion Gap (5-15) MEQ/L BUN (9-20) mg/dL Creatinine (0.66-1.25) mg/dL Estimated GFR ML/MIN Glucose (74-106) mg/dL Lactic Acid 4.2 H 2.7 H (0.4-2.0) Calcium (8.4-10.2) mg/dL Total Bilirubin (0.2-1.3) mg/dL AST (17-59) U/L ALT (0-50) U/L Alkaline Phosphatase (38-126) U/L Troponin I < 0.012 (0.000-0.034) ng/mL Serum Total Protein (6.3-8.2) g/dL Albumin (3.5-5.0) g/dL Amylase (30-110) U/L Lipase (23-300) U/L Urine Color (YELLOW) Urine Appearance (CLEAR) Urine pH (5-6) Ur Specific [place] (1.005-1.025) Urine Protein (Negative) Urine Ketones (NEGATIVE) Urine Blood (0-5) Todd/ul Urine Nitrite (NEGATIVE) Urine Bilirubin (NEGATIVE) Urine Urobilinogen (0-1) mg/dL Ur Leukocyte Esterase (NEGATIVE) Urine WBC (Auto) (0-5) /HPF Urine RBC (Auto) (0-2) /HPF U Hyaline Cast (Auto) (0-2) /LPF U Epithel Cells (Auto) (FEW) /HPF Urine Bacteria (Auto) (NEGATIVE) /HPF Unidentified Crystals (NEGATIVE) /HPF Other Casts (Auto) (NEGATIVE) /LPF Urine Mucus (Auto) (NEGATIVE) /HPF Urine Culture Reflexed (NO) Urine Glucose (NEGATIVE) mg/dL SARS-CoV-2 (PCR) (NEGATIVE) 06/09/20 06/09/20 06/09/20 Range/Units 07:10 10:10 10:10 WBC (4.0-10.5) K/mm3 RBC (4.1-5.6) M/mm3 Hgb (12.5-18.0) gm/dl Hct (42-50) % MCV (78-100) fl MCH (26-32) pg MCHC (32-36) g/dl RDW (11.5-14.0) % Plt Count (150-450) K/mm3 MPV (7.5-11.0) fl Segmented Neutrophils (36.-66.) % Band Neutrophils (0.0-2.0) % Lymphocytes (Manual) (24-44) % Monocytes (Manual) (0.0-12.0) % Hypochromia Platelet Estimate (NORMAL) RBC Morphology Polychromasia Sodium (137-145) mmol/L Potassium (3.5-5.1) mmol/L Chloride (98-107) mmol/L Carbon Dioxide (22-30) mmol/L Anion Gap (5-15) MEQ/L BUN (9-20) mg/dL Creatinine (0.66-1.25) mg/dL Estimated GFR ML/MIN Glucose (74-106) mg/dL Lactic Acid (0.4-2.0) Calcium (8.4-10.2) mg/dL Total Bilirubin (0.2-1.3) mg/dL AST (17-59) U/L ALT (0-50) U/L Alkaline Phosphatase (38-126) U/L Troponin I < 0.012 < 0.012 (0.000-0.034) ng/mL Serum Total Protein (6.3-8.2) g/dL Albumin (3.5-5.0) g/dL Amylase (30-110) U/L Lipase (23-300) U/L Urine Color (YELLOW) Urine Appearance (CLEAR) Urine pH (5-6) Ur Specific [place] (1.005-1.025) Urine Protein (Negative) Urine Ketones (NEGATIVE) Urine Blood (0-5) Todd/ul Urine Nitrite (NEGATIVE) Urine Bilirubin (NEGATIVE) Urine Urobilinogen (0-1) mg/dL Ur Leukocyte Esterase (NEGATIVE) Urine WBC (Auto) (0-5) /HPF Urine RBC (Auto) (0-2) /HPF U Hyaline Cast (Auto) (0-2) /LPF U Epithel Cells (Auto) (FEW) /HPF Urine Bacteria (Auto) (NEGATIVE) /HPF Unidentified Crystals (NEGATIVE) /HPF Other Casts (Auto) (NEGATIVE) /LPF Urine Mucus (Auto) (NEGATIVE) /HPF Urine Culture Reflexed (NO) Urine Glucose (NEGATIVE) mg/dL SARS-CoV-2 (PCR) NEGATIVE (NEGATIVE) 06/09/20 06/09/20 Range/Units 13:03 16:25 WBC (4.0-10.5) K/mm3 RBC (4.1-5.6) M/mm3 Hgb (12.5-18.0) gm/dl Hct (42-50) % MCV (78-100) fl MCH (26-32) pg MCHC (32-36) g/dl RDW (11.5-14.0) % Plt Count (150-450) K/mm3 MPV (7.5-11.0) fl Segmented Neutrophils (36.-66.) % Band Neutrophils (0.0-2.0) % Lymphocytes (Manual) (24-44) % Monocytes (Manual) (0.0-12.0) % Hypochromia Platelet Estimate (NORMAL) RBC Morphology Polychromasia Sodium (137-145) mmol/L Potassium (3.5-5.1) mmol/L Chloride (98-107) mmol/L Carbon Dioxide (22-30) mmol/L Anion Gap (5-15) MEQ/L BUN (9-20) mg/dL Creatinine (0.66-1.25) mg/dL Estimated GFR ML/MIN Glucose (74-106) mg/dL Lactic Acid (0.4-2.0) Calcium (8.4-10.2) mg/dL Total Bilirubin (0.2-1.3) mg/dL AST (17-59) U/L ALT (0-50) U/L Alkaline Phosphatase (38-126) U/L Troponin I < 0.012 < 0.012 (0.000-0.034) ng/mL Serum Total Protein (6.3-8.2) g/dL Albumin (3.5-5.0) g/dL Amylase (30-110) U/L Lipase (23-300) U/L Urine Color (YELLOW) Urine Appearance (CLEAR) Urine pH (5-6) Ur Specific [place] (1.005-1.025) Urine Protein (Negative) Urine Ketones (NEGATIVE) Urine Blood (0-5) Todd/ul Urine Nitrite (NEGATIVE) Urine Bilirubin (NEGATIVE) Urine Urobilinogen (0-1) mg/dL Ur Leukocyte Esterase (NEGATIVE) Urine WBC (Auto) (0-5) /HPF Urine RBC (Auto) (0-2) /HPF U Hyaline Cast (Auto) (0-2) /LPF U Epithel Cells (Auto) (FEW) /HPF Urine Bacteria (Auto) (NEGATIVE) /HPF Unidentified Crystals (NEGATIVE) /HPF Other Casts (Auto) (NEGATIVE) /LPF Urine Mucus (Auto) (NEGATIVE) /HPF Urine Culture Reflexed (NO) Urine Glucose (NEGATIVE) mg/dL SARS-CoV-2 (PCR) (NEGATIVE) Microbiology 06/09/20 04:22 Blood Culture Gram Stain - Final Blood - Radiology Impressions Radiology Exams & Impressions: Radiology Procedures Category Date Time Status ABDOMEN AND PELVIS W/0 CONTRAS [CT] Stat Exams 06/09/20 03:57 Completed CHEST 1 VIEW (PORTABLE) Stat Exams 06/09/20 17:17 Ordered CHEST WITHOUT CONTRAST [CT] Stat Exams 06/09/20 03:59 Completed - Other Procedures and Tests Respiratory Therapy 06/09/20 04:20 Respiratory Therapy Assessment DAILY 06/09/20 06:59 Oxygen Nasal Cannula 2 lpm 06/09/20 09:10 Respiratory MDI BID Assessment/Plan (1) Sepsis Current Visit: Yes Status: Acute Qualifiers: Sepsis type: sepsis due to unspecified organism Sepsis acute organ dysfunction status: with acute organ dysfunction Severe sepsis acute organ dysfunction type: acute renal failure Acute renal failure type: unspecified Severe sepsis shock status: without septic shock Qualified Code(s): A41.9 - Sepsis, unspecified organism; R65.20 - Severe sepsis without septic shock; N17.9 - Acute kidney failure, unspecified Assessment & Plan: Blood cultures positive. Elevated HR, renal dysfunction, infection. Discussed antibiotic choice with pharmacy, they agree with meropenem. (2) Pneumonia involving right lung Current Visit: Yes Status: Acute Qualifiers: Pneumonia type: due to unspecified organism Lung location: unspecified part of lung Qualified Code(s): J18.9 - Pneumonia, unspecified organism Assessment & Plan: Middle and lower lung. On meropenem. Code(s): J18.9 - PNEUMONIA, UNSPECIFIED ORGANISM (3) Acute renal insufficiency Current Visit: Yes Status: Acute Assessment & Plan: Unsure baseline, but eGFR is 24. Code(s): N28.9 - DISORDER OF KIDNEY AND URETER, UNSPECIFIED (4) Leukopenia Current Visit: Yes Status: Acute Qualifiers: Leukopenia type: neutropenia Neutropenia type: due to infection Qualified Code(s): D70.3 - Neutropenia due to infection Code(s): D72.819 - DECREASED WHITE BLOOD CELL COUNT, UNSPECIFIED (5) COPD (chronic obstructive pulmonary disease) Current Visit: Yes Status: Acute Qualifiers: COPD type: unspecified COPD Qualified Code(s): J44.9 - Chronic obstructive pulmonary disease, unspecified
[2020-06-09] MEDS: solu-MEDROL 40 MG IV SCH (18:06)
[2020-06-09] MEDS: Lactated Ringers 1,000 ML IV SCH ×2 (18:06→23:34)
[2020-06-09] MEDS: ENOXAPARIN SODIUM SQ SCH (18:08)
[2020-06-09] MEDS: Ativan 2 MG/1 ML VIAL IV PRN (18:12)
[2020-06-09] MEDS: Merrem 1 GM 1 G in Sodium Chloride 100ML MINI-BAG PLUS 100 ML IV SCH (18:22)
[2020-06-09 21:13] LABS: Barbiturate,Urine NEGATIVE (NEGATIVE); Benzodiazepine,Urine NEGATIVE (NEGATIVE); Cocaine,Urine NEGATIVE (NEGATIVE); Methadone,Urine NEGATIVE (NEGATIVE); Opiate,Urine POSITIVE (NEGATIVE); PCP,Urine NEGATIVE (NEGATIVE); THC,Urine NEGATIVE (NEGATIVE)
[2020-06-09] MEDS: MORPHINE SULFATE 10 MG/ML IV PRN (21:28)
[2020-06-09 21:38] LABS: Amphetamine,Urine POSITIVE (NEGATIVE)
[2020-06-10] MEDS: MORPHINE SULFATE 10 MG/ML IV PRN ×4 (00:04→11:52)
[2020-06-10] MEDS: solu-MEDROL 40 MG IV SCH ×2 (01:02→11:33)
[2020-06-10] MEDS: Ativan 2 MG/1 ML VIAL IV PRN ×2 (01:05→10:55)
[2020-06-10 04:45] LABS: Hematocrit 28.8 % (42-50); Hemoglobin 8.5 gm/dl (12.5-18.0); Mean Cell Volume 84.7 fl (78-100); Mean Corpuscular Hgb Concent. 29.5 g/dl (32-36); Mean Platelet Volume 9.2 fl (7.5-11.0); Platelet Count 335 K/mm3 (150-450); Red Cell Distribution Width 19.9 % (11.5-14.0); White Blood Count 3.7 K/mm3 (4.0-10.5)
[2020-06-10 05:06] LABS: ALBUMIN 3.1 g/dL (3.5-5.0); ANION GAP 14.7 MEQ/L (5-15); BILIRUBIN,TOTAL 0.4 mg/dL (0.2-1.3); Calcium 7.4 mg/dL (8.4-10.2); Creatinine 1 3.95 mg/dL (0.66-1.25); Potassium 4.9 mmol/L (3.5-5.1); Total Protein 6.2 g/dL (6.3-8.2)
[2020-06-10] MEDS: ENOXAPARIN SODIUM SQ SCH (05:13)
[2020-06-10] MEDS: Merrem 1 GM 1 G in Sodium Chloride 100ML MINI-BAG PLUS 100 ML IV SCH (05:13)
[2020-06-10 05:53] LABS: ANISOCYTOSIS 1+; BAND 27 % (0.0-2.0); Lymphocytes 21 % (24-44); Monocyte 4 % (0.0-12.0); Neutrophils 48 % (36.-66.); Platelet Estimate NORMAL (NORMAL); Poikilocytosis 1+; Polychromasia 1+; Total Cells Counted 100; Toxic Granulation 1+
[2020-06-10] MEDS: Spiriva 18 Mcg/Cap Inhaler IH SCH (07:12)
[2020-06-10] MEDS: VENTOLIN COMMON CANISTER IH SCH (07:13)
[2020-06-10] MEDS: Advair Hfa 115/21 Common canister IH SCH (07:14)
[2020-06-10] MEDS ORDERED: Sodium Chloride 0.9% 1000 ML 1,000 ML IV STA (08:22)
--- NOTE | 2020-06-10 08:37 | XRAY ---
Indication: Dyspnea/hypoxemia. Status post fall. Comparison: February 17, 2017. Portable chest demonstrates new CT proven right mid to lower lung consolidating airspace disease with effusion. Minimal left base atelectasis and tiny effusion. Remaining heart and upper lungs unremarkable. Bony thorax intact again with old right clavicle fracture.
[2020-06-10] MEDS ORDERED: ELAVIL 25 MG PO SCH (10:00)
--- NOTE | 2020-06-10 10:44 | PCM.NOTE ---
Date and Time: 06/10/20 1040 Subjective Assessment: Pt's pain has been a little better per sister. Pt had 650 out of the bermudez. - Review of Systems Constitutional: No Fever Respiratory: Cough, Short Of Breath Objective Exam General Appearance: mild distress, alert Neurologic Exam: cooperative, other (answers questions but is difficult to understand (on oximask).) Skin Exam: normal color, warm, dry, No rash Respiratory Exam: diminished breath sounds, rhonchi (scattered), wheezing (scattered), other (R ribs nttp), No crackles/rales Cardiovascular Exam: regular rate/rhythm, normal heart sounds, No murmur Gastrointestinal/Abdomen Exam: soft, normal bowel sounds, tenderness (generalized) OBJECTIVE DATA Vital Signs: Vital Signs - 24 hr Temp Pulse Resp BP Pulse Ox 06/10/20 08:30 80 16 93 L 06/10/20 08:00 98.4 F 104 H 21 119/87 91 L 06/10/20 07:12 106 H 16 92 L 06/10/20 04:00 98.6 F 100 H 16 124/80 93 L 06/10/20 00:01 101 H 06/10/20 00:00 98.7 F 101 H 26 H 111/77 97 06/09/20 20:45 103 H 06/09/20 19:55 103 H 19 97 06/09/20 19:09 97.7 F 101 H 17 106/70 98 06/09/20 16:00 98.0 F 97 H 22 101/69 93 L 06/09/20 12:00 98.1 F 104 H 22 102/61 96 Pain Assessment - Last Documented Pain Intensity 9 Pain Scale Used 0-10 Pain Scale Intake and Output: Intake & Output 06/07/20 06/08/20 06/09/20 06/10/20 11:59 11:59 11:59 11:59 Intake Total 120 2176 Output Total 650 Balance 120 1526 Weight 61.6 kg Lab Results: Lab Results-Last 24 Hours 06/09/20 06/09/20 06/09/20 Range/Units 10:10 10:10 13:03 WBC (4.0-10.5) K/mm3 RBC (4.1-5.6) M/mm3 Hgb (12.5-18.0) gm/dl Hct (42-50) % MCV (78-100) fl MCH (26-32) pg MCHC (32-36) g/dl RDW (11.5-14.0) % Plt Count (150-450) K/mm3 MPV (7.5-11.0) fl Segmented Neutrophils (36.-66.) % Band Neutrophils (0.0-2.0) % Lymphocytes (Manual) (24-44) % Monocytes (Manual) (0.0-12.0) % Toxic Granulation Platelet Estimate (NORMAL) RBC Morphology Polychromasia Poikilocytosis Anisocytosis Puncture Site pCO2 (35-45) mmHg pO2 (75-100) mmHg Base Excess (-2.0-2.0) O2 Saturation (94-100) g/dF ABG pH (7.35-7.45) ABG HCO3 (22-28) ABG O2 Sat (Measured) (95-100) % Navarro Test A-a Gradient a/A Ratio Hemoglobin Carboxyhemoglobin (0.0-6.9) % THgb Methemoglobin (1.4-1.5) % Potassium (3.5-5.1) Temperature C POC O2 Flow Rate % Sodium (137-145) mmol/L Chloride (98-107) mmol/L Carbon Dioxide (22-30) mmol/L Anion Gap (5-15) MEQ/L BUN (9-20) mg/dL Creatinine (0.66-1.25) mg/dL Estimated GFR ML/MIN Glucose (74-106) mg/dL Calcium (8.4-10.2) mg/dL Total Bilirubin (0.2-1.3) mg/dL AST (17-59) U/L ALT (0-50) U/L Alkaline Phosphatase (38-126) U/L Troponin I < 0.012 < 0.012 (0.000-0.034) ng/mL Serum Total Protein (6.3-8.2) g/dL Albumin (3.5-5.0) g/dL Prealbumin (17.6-36.0) mg/dL Urine Opiates Level (NEGATIVE) Ur Methadone (NEGATIVE) Urine Barbiturates (NEGATIVE) Ur Phencyclidine (PCP) (NEGATIVE) Urine Amphetamine (NEGATIVE) U Benzodiazepine Level (NEGATIVE) Urine Cocaine (NEGATIVE) Urine Marijuana (THC) (NEGATIVE) SARS-CoV-2 (PCR) NEGATIVE (NEGATIVE) 06/09/20 06/09/20 06/09/20 Range/Units 16:25 17:25 Unknown WBC (4.0-10.5) K/mm3 RBC (4.1-5.6) M/mm3 Hgb (12.5-18.0) gm/dl Hct (42-50) % MCV (78-100) fl MCH (26-32) pg MCHC (32-36) g/dl RDW (11.5-14.0) % Plt Count (150-450) K/mm3 MPV (7.5-11.0) fl Segmented Neutrophils (36.-66.) % Band Neutrophils (0.0-2.0) % Lymphocytes (Manual) (24-44) % Monocytes (Manual) (0.0-12.0) % Toxic Granulation Platelet Estimate (NORMAL) RBC Morphology Polychromasia Poikilocytosis Anisocytosis Puncture Site RIGHT RADIAL pCO2 37 (35-45) mmHg pO2 67 L (75-100) mmHg Base Excess -7.0 L (-2.0-2.0) O2 Saturation 92.2 L (94-100) g/dF ABG pH 7.31 L (7.35-7.45) ABG HCO3 18.6 L (22-28) ABG O2 Sat (Measured) 93.7 L (95-100) % Navarro Test YES A-a Gradient 279 a/A Ratio 0.19 Hemoglobin 10.1 Carboxyhemoglobin 1.2 (0.0-6.9) % THgb Methemoglobin 0.4 L (1.4-1.5) % Potassium 4.9 (3.5-5.1) Temperature 37.0 C POC O2 Flow Rate 55 % Sodium (137-145) mmol/L Chloride (98-107) mmol/L Carbon Dioxide (22-30) mmol/L Anion Gap (5-15) MEQ/L BUN (9-20) mg/dL Creatinine (0.66-1.25) mg/dL Estimated GFR ML/MIN Glucose (74-106) mg/dL Calcium (8.4-10.2) mg/dL Total Bilirubin (0.2-1.3) mg/dL AST (17-59) U/L ALT (0-50) U/L Alkaline Phosphatase (38-126) U/L Troponin I < 0.012 (0.000-0.034) ng/mL Serum Total Protein (6.3-8.2) g/dL Albumin (3.5-5.0) g/dL Prealbumin (17.6-36.0) mg/dL Urine Opiates Level POSITIVE (NEGATIVE) Ur Methadone NEGATIVE (NEGATIVE) Urine Barbiturates NEGATIVE (NEGATIVE) Ur Phencyclidine (PCP) NEGATIVE (NEGATIVE) Urine Amphetamine POSITIVE (NEGATIVE) U Benzodiazepine Level NEGATIVE (NEGATIVE) Urine Cocaine NEGATIVE (NEGATIVE) Urine Marijuana (THC) NEGATIVE (NEGATIVE) SARS-CoV-2 (PCR) (NEGATIVE) 06/10/20 06/10/20 06/10/20 Range/Units 04:15 04:15 04:30 WBC 3.7 L (4.0-10.5) K/mm3 RBC 3.40 L (4.1-5.6) M/mm3 Hgb 8.5 L (12.5-18.0) gm/dl Hct 28.8 L (42-50) % MCV 84.7 (78-100) fl MCH 25.0 L (26-32) pg MCHC 29.5 L (32-36) g/dl RDW 19.9 H (11.5-14.0) % Plt Count 335 (150-450) K/mm3 MPV 9.2 (7.5-11.0) fl Segmented Neutrophils 48 (36.-66.) % Band Neutrophils 27 H (0.0-2.0) % Lymphocytes (Manual) 21 L (24-44) % Monocytes (Manual) 4 (0.0-12.0) % Toxic Granulation 1+ Platelet Estimate NORMAL (NORMAL) RBC Morphology ABNORMAL Polychromasia 1+ Poikilocytosis 1+ Anisocytosis 1+ Puncture Site pCO2 (35-45) mmHg pO2 (75-100) mmHg Base Excess (-2.0-2.0) O2 Saturation (94-100) g/dF ABG pH (7.35-7.45) ABG HCO3 (22-28) ABG O2 Sat (Measured) (95-100) % Navarro Test A-a Gradient a/A Ratio Hemoglobin Carboxyhemoglobin (0.0-6.9) % THgb Methemoglobin (1.4-1.5) % Potassium 4.9 D (3.5-5.1) Temperature C POC O2 Flow Rate % Sodium 135 L (137-145) mmol/L Chloride 106 (98-107) mmol/L Carbon Dioxide 19 L (22-30) mmol/L Anion Gap 14.7 (5-15) MEQ/L BUN 50 H (9-20) mg/dL Creatinine 3.95 H (0.66-1.25) mg/dL Estimated GFR 16.4 ML/MIN Glucose 110 H (74-106) mg/dL Calcium 7.4 L (8.4-10.2) mg/dL Total Bilirubin 0.40 (0.2-1.3) mg/dL AST 19 (17-59) U/L ALT 13 (0-50) U/L Alkaline Phosphatase 58 (38-126) U/L Troponin I (0.000-0.034) ng/mL Serum Total Protein 6.2 L (6.3-8.2) g/dL Albumin 3.1 L (3.5-5.0) g/dL Prealbumin 7.87 L (17.6-36.0) mg/dL Urine Opiates Level (NEGATIVE) Ur Methadone (NEGATIVE) Urine Barbiturates (NEGATIVE) Ur Phencyclidine (PCP) (NEGATIVE) Urine Amphetamine (NEGATIVE) U Benzodiazepine Level (NEGATIVE) Urine Cocaine (NEGATIVE) Urine Marijuana (THC) (NEGATIVE) SARS-CoV-2 (PCR) (NEGATIVE) Radiology Exams: Radiology Procedures Category Date Time Status ABDOMEN AND PELVIS W/0 CONTRAS [CT] Stat Exams 06/09/20 03:57 Completed CHEST 1 VIEW (PORTABLE) Stat Exams 06/09/20 17:17 Completed CHEST WITHOUT CONTRAST [CT] Stat Exams 06/09/20 03:59 Completed GALLBLADDER [US] Urgent Exams 06/10/20 08:00 Taken Multi-Disciplinary Progress Notes: Multi-Disciplinary Progress Notes 06/10/20 09:16 Case Management Note by Pallavi Alexis PATIENT STILL ACUTELY ILL, WILL CONTINUE TO FOLLOW Initialized on 06/10/20 09:16 - END OF NOTE 06/10/20 07:50 Nutrition Note by Jeffry Moreno Talked with RT, to try flutter and IS treatments. Lung wounds with bilaterally rhonci. Patient with difficulty coughing d/t to pain. Initialized on 06/10/20 07:50 - END OF NOTE Assessment/Plan (1) Sepsis Current Visit: Yes Status: Acute Qualifiers: Sepsis type: sepsis due to unspecified organism Sepsis acute organ dysfunction status: with acute organ dysfunction Severe sepsis acute organ dysfunction type: acute renal failure Acute renal failure type: unspecified Severe sepsis shock status: without septic shock Qualified Code(s): A41.9 - Sepsis, unspecified organism; R65.20 - Severe sepsis without septic shock; N17.9 - Acute kidney failure, unspecified Assessment & Plan: Increase fluids today, having urine output now but I think fluid balance overall still neg. Blood cx pos for Strep pneumoniae, sensitivities pending. (2) Pneumonia involving right lung Current Visit: Yes Status: Acute Qualifiers: Pneumonia type: due to unspecified organism Lung location: unspecified part of lung Qualified Code(s): J18.9 - Pneumonia, unspecified organism Assessment & Plan: On IV meropenem. Code(s): J18.9 - PNEUMONIA, UNSPECIFIED ORGANISM (3) Acute renal insufficiency Current Visit: Yes Status: Acute Assessment & Plan: This is worsened. Consulted nephrology. Increased fluids, may still be pre- renal azotemia. Code(s): N28.9 - DISORDER OF KIDNEY AND URETER, UNSPECIFIED (4) Leukopenia Current Visit: Yes Status: Acute Qualifiers: Leukopenia type: neutropenia Neutropenia type: due to infection Qualified Code(s): D70.3 - Neutropenia due to infection Assessment & Plan: improved. Code(s): D72.819 - DECREASED WHITE BLOOD CELL COUNT, UNSPECIFIED (5) COPD (chronic obstructive pulmonary disease) Current Visit: Yes Status: Chronic Qualifiers: COPD type: unspecified COPD Qualified Code(s): J44.9 - Chronic obstructive pulmonary disease, unspecified
--- NOTE | 2020-06-10 10:51 | XRAY ---
Indication: Distended gallbladder on recent CT. Two-dimensional gallbladder sonogram performed. Comparison: None Gallbladder appears normally distended without gallstones, wall thickening, or pericholecystic fluid. Common bile duct measures 2.9 mm no intrahepatic biliary distention. Remaining visualized portions of the liver, pancreas, and right kidney appear sonographically normal. Right kidney measures 8.7 cm in length. Incidental right lung base effusion. Impression: 1. Negative gallbladder sonogram. 2. Incidental right lung base effusion.
[2020-06-10] MEDS ORDERED: Adenocard IV 6 MG/2 ML IV SCH ×2 (11:00→11:05)
[2020-06-10] MEDS ORDERED: CARDIZEM DRIP 100 MG/100 ML D5W 100 ML IV ONE (11:08)
[2020-06-10] MEDS ORDERED: CARDIZEM DRIP 100 MG/100 ML D5W 100 ML IV SCH (11:10)
[2020-06-10] MEDS ORDERED: Cardizem IV 50 MG/10 ML IV SCH (11:10)
[2020-06-10] MEDS ORDERED: Cardizem IV 50 MG/10 ML IV ONE (11:20)
[2020-06-10 11:24] LABS: VBG BASE EXCESS -9.5 (-2.0-2.0); VBG CARBOXYHEMOGLOBIN 2.7 % T HGB (0.0-6.9); VBG HEMOGLOBIN 9.3; VBG O2 SATURATION 56.8 (95-100); VBG POTASSIUM 5.7 (3.5-5.1)
[2020-06-10 11:25] LABS: VBG pH 7.22 (7.32-7.42)
[2020-06-10 11:28] LABS: Hematocrit 29.7 % (42-50); Hemoglobin 8.8 gm/dl (12.5-18.0); Mean Cell Volume 85.3 fl (78-100); Mean Corpuscular Hemoglobin 25.3 pg (26-32); Mean Corpuscular Hgb Concent. 29.6 g/dl (32-36); Mean Platelet Volume 8.9 fl (7.5-11.0); Platelet Count 347 K/mm3 (150-450); Red Blood Count 3.48 M/mm3 (4.1-5.6); Red Cell Distribution Width 19.8 % (11.5-14.0); White Blood Count 8.9 K/mm3 (4.0-10.5)
[2020-06-10 11:50] LABS: A-aADO2 606; ABG HEMOGLOBIN 8.8; ABG POTASSIUM 4.7 (3.5-5.1); ARTERIAL BLD GAS O2 SATURATION 89.7 % (95-100); ARTERIAL BLOOD GAS BASE EXCESS -9.9 (-2.0-2.0); ARTERIAL BLOOD GAS FIO2 100 %; ARTERIAL BLOOD GAS PCO2 38 mmHg (35-45); ARTERIAL BLOOD GAS PO2 60 mmHg (75-100); ARTERIAL BLOOD GAS pH 7.25 (7.35-7.45); CARBOXYHEMOGLOBIN 1.4 % THgb (0.0-6.9); HCO3- 16.7 (22-28); HGB O2 SAT 88.1 g/dF (94-100); Methhemoglobin 0.4 % (1.4-1.5); paO2 pAO1 0.09
[2020-06-10] MEDS ORDERED: Cordarone 150 MG/3 ML Injection*** 150 MG in D5w 100ML Mini Bag 100 ML 100 ML IV SCH (12:00)
[2020-06-10] MEDS ORDERED: NEXTERONE 360 MG/200 ML BAG 360 MG/200 ML PLAST..BAG IV SCH (12:00)
[2020-06-10 12:08] LABS: ALBUMIN 3.2 g/dL (3.5-5.0); ANION GAP 14.8 MEQ/L (5-15); BILIRUBIN,TOTAL 0.4 mg/dL (0.2-1.3); Calcium 7.6 mg/dL (8.4-10.2); Creatinine 1 3.84 mg/dL (0.66-1.25); MAGNESIUM 1.7 mg/dL (1.6-2.3); Potassium 5.6 mmol/L (3.5-5.1); Total Protein 6.4 g/dL (6.3-8.2)
[2020-06-10] MEDS ORDERED: VERSED 5 MG/5 ML IV ONE (12:10)
[2020-06-10] MEDS ORDERED: Zemuron 100 MG/10 ML IV ONE (12:10)
[2020-06-10] MEDS ORDERED: Sodium Chloride 0.9% 1000 ML 1,000 ML ONE (12:15)
[2020-06-10] MEDS ORDERED: Versed 50 MG/ 10 Ml MDV*** 50 MG in Sodium Chloride 0.9% 250 ML 240 ML IV PRN (12:29)
[2020-06-10] MEDS ORDERED: Zemuron 100 MG/10 ML 100 MG in Sodium Chloride 0.9% 100 ML IVPB 90 ML IV SCH (12:30)
[2020-06-10 12:51] LABS: A-aADO2 540; ABG HEMOGLOBIN 9.1; ABG POTASSIUM 4.7 (3.5-5.1); ABG SITE RIGHT RADIAL; ALLEN TEST OK? YES; ARTERIAL BLD GAS O2 SATURATION 98.1 % (95-100); ARTERIAL BLOOD GAS BASE EXCESS -10.6 (-2.0-2.0); ARTERIAL BLOOD GAS FIO2 100 %; ARTERIAL BLOOD GAS PCO2 57 mmHg (35-45); ARTERIAL BLOOD GAS PO2 102 mmHg (75-100); ARTERIAL BLOOD GAS VENT MODE A/C; ARTERIAL BLOOD GAS pH 7.13 (7.35-7.45); CARBOXYHEMOGLOBIN 0.6 % THgb (0.0-6.9); HGB O2 SAT 96.9 g/dF (94-100); Lactic Acid 2.1 (0.4-2.0); Methhemoglobin 0.6 % (1.4-1.5); paO2 pAO1 0.16
--- NOTE | 2020-06-10 13:06 | XRAY ---
Indication: Endotracheal tube and NG tube placement. Comparison: One day earlier. Portable chest demonstrates new endotracheal tube tip 6 cm above emma and new NG tube tip projecting left upper quadrant abdomen probably in proximal stomach. Remaining chest unchanged again demonstrating right lower lung consolidating airspace disease/effusion and minimal left base atelectasis with tiny effusion. Heart is not enlarged. No new cardiopulmonary abnormalities.
[2020-06-10 13:08] VITALS: BP 115/81
[2020-06-10] MEDS: Sodium Chloride 0.9% 1000 ML 1,000 ML IV STA (13:12)
[2020-06-10 14:23] VITALS: PULSE 124; O2SAT 95
[2020-06-10 14:35] LABS: ABG SITE LEFT RADIAL
[2020-06-10 16:00] LABS: BAND 34 % (0.0-2.0); Lymphocytes 15 % (24-44); Monocyte 1 % (0.0-12.0); Neutrophils 50 % (36.-66.); Total Cells Counted 100
[2020-06-10 16:01] LABS: ANISOCYTOSIS 1+; Platelet Estimate NORMAL (NORMAL); Toxic Granulation 2+
[2020-06-10 16:02] LABS: Polychromasia RARE
[2020-06-10 16:03] LABS: Poikilocytosis 1+
[2020-06-11] MEDS ORDERED: PATIENT OWN MEDICATION IH SCH ×2 (07:00)
== END 2020-06-10 13:55 | disposition short-term general hospital (02) | DRG 871 ==
LOC: ED 03:45 → MED SURG 06:29 → ICU 17:13
PROVIDERS: ADMIT Family Medicine; ATTEND Family Medicine
DX: A41.9 Sepsis, unspecified organism (principal); J18.9 Pneumonia, unspecified organism; D72.819 Decreased white blood cell count, unspecified; J44.9 Chronic obstructive pulmonary disease, unspecified; R07.81 Pleurodynia; I48.91 Unspecified atrial fibrillation; D64.9 Anemia, unspecified; N28.9 Disorder of kidney and ureter, unspecified; W18.09XA Striking against other object with subsequent fall, initial encounter; Z79.899 Other long term (current) drug therapy; Z11.59 Encounter for screening for other viral diseases
CPT/HCPCS: 31500; 36000; 36415; 36600; 71045; 71250; 74176; 76705; 80053; 80307; 81001; 82150; 82375; 82803; 82805; 83605; 83690; 83735; 83880; 84134; 84443; 84484; 85025; 87040; 87077; 87086; 93005; 94002; 94640; 94770; 94799; 96365; 96374; 96375; 96376; 99285; J0153; J0282; J1650; J2060; J2250; J2270; J2405; J2920; J7609; U0003; A9270-GY

== ENCOUNTER 2020-12-29 16:39 | Emergency (ER) | payer MEDICARE ==
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
[2020-12-29 17:34] LABS: Absolute Neutrophil Ct (ANC) 10.13 (1.4-6.9); BASOPHIL % 0.2 % (0.0-0.4); Basophil (Absolute #) 0.03 (0-0.4); Eosinophil % 0.9 % (0.00-5.0); Eosinophil (Absolute #) 0.11 (0-0.5); Hematocrit 31.9 % (42-50); Hemoglobin 9.8 gm/dl (12.5-18.0); Lymphocyte (Absolute #) 0.98 (1.0-4.6); Lymphocytes % 7.9 % (24.0-44.0); Mean Cell Volume 101.6 fl (78-100); Mean Corpuscular Hemoglobin 31.2 pg (26-32); Mean Corpuscular Hgb Concent. 30.7 g/dl (32-36); Mean Platelet Volume 8.3 fl (7.5-11.0); Monocyte (Absolute #) 1.13 (0.0-1.3); Monocytes % 9.1 % (0.0-12.0); Neutrophil % 81.9 % (36.0-66.0); Platelet Count 412 K/mm3 (150-450); Red Blood Count 3.14 M/mm3 (4.1-5.6); Red Cell Distribution Width 15.3 % (11.5-14.0); White Blood Count 12.4 K/mm3 (4.0-10.5)
[2020-12-29 17:39] LABS: INR 1.31 (0.8-3.0); PROTIME 14.8 SECONDS (8.83-12.87)
[2020-12-29 17:42] LABS: PTT 36.5 SECONDS (24.1-36.1)
[2020-12-29 17:49] LABS: ALBUMIN 3.8 g/dL (3.5-5.0); ALKALINE PHOSPHATASE 79 U/L (38-126); AMYLASE 30 U/L (30-110); ANION GAP 12.4 MEQ/L (5-15); BLOOD UREA NITROGEN 19 mg/dL (9-20); CHLORIDE 106 mmol/L (98-107); Calcium 9.2 mg/dL (8.4-10.2); Carbon Dioxide 24 mmol/L (22-30); Creatinine 1 1.09 mg/dL (0.66-1.25); EST GLOMERULAR FILTRATION RATE > 60.0 ML/MIN; ETHYL ALCOHOL < 10 mg/dL (0-10); Glucose 113 mg/dL (74-106); Potassium 3.6 mmol/L (3.5-5.1); SGOT/AST 17 U/L (17-59); SGPT/ALT 10 U/L (0-50); SODIUM 139 mmol/L (137-145); Total Protein 6.8 g/dL (6.3-8.2)
[2020-12-29 18:20] LABS: Appearance CLEAR (CLEAR); Bilirubin NEGATIVE (NEGATIVE); Blood NEGATIVE Ery/ul (0-5); Glucose NEGATIVE (NEGATIVE); Hyaline Casts 0-2 /LPF (0-2); Ketones TRACE (NEGATIVE); Leukocyte Esterase NEGATIVE (NEGATIVE); Mucus SLIGHT /HPF (NEGATIVE); Nitrite NEGATIVE (NEGATIVE); Protein,Urine Dip NEGATIVE (Negative); Specific Gravity 1.019 (1.005-1.025); Urobilinogen NEGATIVE mg/dL (0-1)
[2020-12-29 18:36] LABS: Barbiturate,Urine NEGATIVE (NEGATIVE); Benzodiazepine,Urine POSITIVE (NEGATIVE); Cocaine,Urine NEGATIVE (NEGATIVE); Methadone,Urine NEGATIVE (NEGATIVE); Opiate,Urine POSITIVE (NEGATIVE); PCP,Urine NEGATIVE (NEGATIVE); THC,Urine NEGATIVE (NEGATIVE)
[2020-12-29 19:01] LABS: Amphetamine,Urine POSITIVE (NEGATIVE)
[2020-12-29] MEDS ORDERED: TORAdol 30 mg Injection IV ONE (20:00)
[2020-12-29] MEDS ORDERED: TORAdol 30 mg Injection ONE (20:06)
[2020-12-29 20:12] VITALS: BP 131/97; PULSE 98
[2020-12-29 23:57] VITALS: O2SAT 99
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
== END 2020-12-29 20:25 | disposition home or self-care (01) ==
LOC: ED 16:39
DX: S09.90XA Unspecified injury of head, initial encounter (principal); S16.1XXA Strain of muscle, fascia and tendon at neck level, initial encounter; W00.0XXD Fall on same level due to ice and snow, subsequent encounter; M54.5 Low back pain; M79.605 Pain in left leg; M79.604 Pain in right leg; R07.81 Pleurodynia; R51.9 Headache, unspecified; F19.20 Other psychoactive substance dependence, uncomplicated; Z72.89 Other problems related to lifestyle; Z79.899 Other long term (current) drug therapy
CPT/HCPCS: 36000; 36415; 70450; 71260; 72125; 74177; 80053; 80307; 81001; 82150; 85025; 85610; 85730; 96374; 99284; G0480; J1885

== ENCOUNTER 2022-05-05 08:54 | Emergency (ER) | payer MEDICARE ==
--- NOTE | 2022-05-05 09:26 | ERPHSYRPT ---
- History of Present Illness Time Seen by Provider: 05/05/22 09:10 Source: patient, EMS Exam Limitations: no limitations Patient Subjective Stated Complaint: PT TO ER WITH COMPLAINTS OF SOB. PT WAS SEEN A [facility] FOR COPD EXACERBATION ON 05/03 AND HASNT BEEN ABLE TO GET HIS INHALER AT THE PHARMACY. PT BECAME SOB AGAIN THIS MORNING. Triage Nursing Assessment: PT ARRIVED VIA EMS. PT APPEARS TO BE SOB, LABORED. PT A&OX4. PT ON DUONEB UPON ARRIVAL. SKIN PWD. Physician History: This is a 66-year-old noncompliant, thin white male who has significant COPD and continues to smoke cigarettes daily and presents with increasing shortness of breath over the last few days. On 05/03/2022, patient was seen at [facility]. He has not filled his albuterol inhalers. He states that he is supposed to be on 3 L of oxygen at home but he has not used it because he states that the oxygen tank is too old. He also states he does not have any albuterol solution vials. He was given a prescription for prednisone at discharge from [facility] emergency department which she has not filled yet either. He denies chest pain. He denies fever. He denies cough. He has no abdominal pain. Timing/Duration: day(s) (3), worse Severity of Dyspnea-Max: moderate Severity of Dyspnea-Current: mild Possible Cause: frequent episodes (To moderate) Modifying Factors: Improves With: activity (Worsens), oxygen (Approved) Associated Symptoms: No chest pain/discomfort Allergies/Adverse Reactions: No Known Drug Allergies Allergy (Verified 05/05/22 09:12) Home Medications: Albuterol Common Canister [Ventolin Common Canister] 2 puff PO DAILY PRN 06/09/20 [History] Amitriptyline HCl 25 mg [Elavil 25 mg] 25 mg PO DAILY 06/09/20 [History] Fluticasone/Vilanterol [Breo Ellipta 200-25 Mcg INH] 2 spray PO DAILY 06/09/20 [History] Tiotropium [place] [Spiriva Respimat] 2 spray PO DAILY 06/09/20 [History] Hx Tetanus, Diphtheria Vaccination/Date Given: Yes Hx Influenza Vaccination/Date Given: Yes Hx Pneumococcal Vaccination/Date Given: Yes Travel Risk - International Travel Have you traveled outside of the country in past 3 weeks: No - Coronavirus Screening Are you exhibiting any of the following symptoms?: Yes Symptoms: Shortness of Breath Close contact with a COVID-19 positive Pt in past 14-21 Days: No - Vaccine Status Have you recieved a Covid-19 vaccination: Yes Compliance Paralegal: Unknown - Vaccination Dates Date of 2cond Vaccination (if applicable): UNK Dates if Unknown: UNK - Review of Systems Constitutional: No Symptoms Eyes: No Symptoms Ears, Nose, & Throat: No Symptoms Respiratory: Dyspnea Cardiac: No Symptoms Abdominal/Gastrointestinal: No Symptoms Genitourinary Symptoms: No Symptoms Musculoskeletal: No Symptoms Skin: No Symptoms Neurological: No Symptoms Psychological: No Symptoms Endocrine: No Symptoms Hematologic/Lymphatic: No Symptoms Immunological/Allergic: No Symptoms All Other Systems: Reviewed and Negative - Past Medical History Pertinent Past Medical History: Yes Neurological History: Stroke ENT History: No Pertinent History Cardiac History: Other Respiratory History: COPD Endocrine Medical History: No Pertinent History Musculoskeletal History: No Pertinent History GI Medical History: No Pertinent History History: No Pertinent History Psycho-Social History: Anxiety, Panic Disorder Male Reproductive Disorders: No Pertinent History Other Medical History: shoulder; alcoholism/heavy drinker - Past Surgical History Past Surgical History: Yes Neuro Surgical History: No Pertinent History Cardiac: No Pertinent History Respiratory: No Pertinent History Gastrointestinal: Hernia Repair Genitourinary: No Pertinent History Musculoskeletal: Orthopedic Surgery Male Surgical History: No Pertinent History Other Surgical History: TONSILS. EXPLORATORY ABD SURGURY, shoulder surgery , knee , both hands - Social History Smoking Status: Current every day smoker How long have you smoked: over 30 yr Exposure to second hand smoke: Yes Drug Use: none Patient Lives Alone: Yes Significant Family History: no pertinent family hx - Nursing Vital Signs Nursing Vital Signs: Initial Vital Signs Temperature 98.2 F 05/05/22 08:55 Pulse Rate 105 H 05/05/22 08:55 Respiratory Rate 30 H 05/05/22 08:55 Blood Pressure 149/106 05/05/22 08:55 O2 Sat by Pulse Oximetry 86 L 05/05/22 08:55 Pain Scale Pain Intensity 8 - Physical Exam General Appearance: no apparent distress, alert, anxiety, thin Eye Exam: PERRL/EOMI, eyes nml inspection Ears, Nose, Throat Exam: hearing grossly normal, normal ENT inspection, normal pharynx Neck Exam: normal inspection, non-tender, supple, full range of motion Respiratory Exam: respiratory distress, airway intact, rhonchi (Mild bilaterally), No chest tenderness Cardiovascular/Chest Exam: normal heart sounds, regular rate/rhythm Abdominal/Gastrointestinal Exam: soft, normal bowel sounds, No tenderness Rectal Exam: not done Extremity Exam: non-tender, normal range of motion, normal inspection Neurologic Exam: alert, oriented x 3, cooperative, emery wheel molder II-XII nml as tested, normal mood/affect, nml cerebellar function, nml station & gait, sensation nml Skin Exam: normal color, warm, dry Lymphatic Exam: adenopathy SpO2 Interpretation: normal SpO2: 98 O2 Delivery: Nasal Cannula (2 liters) - Course Nursing assessment & vital signs reviewed: Yes Ordered Tests: Active Orders 24 hr Category Date Time Status Pantry Attendant STAT Care 05/05/22 09:26 Active EKG-ER Only STAT Care 05/05/22 09:26 Active IV Insertion STAT Care 05/05/22 09:26 Active Oxygen-ED Only Nasal Cannula 2 lpm Care 05/05/22 09:26 Active Pulse Oximetry (ED) STAT Care 05/05/22 09:26 Active CHEST 1 VIEW (PORTABLE) Stat Exams 05/05/22 09:26 Completed CHEST WITH CONTRAST [CT] Stat Exams 05/05/22 10:32 Completed CBC W DIFF Stat Lab 05/05/22 09:35 Completed CMP Stat Lab 05/05/22 09:35 Completed D-DIMER QUANTITATIVE Stat Lab 05/05/22 09:35 Completed NT PRO BNP Stat Lab 05/05/22 09:35 Completed TROPONIN Q3H Lab 05/05/22 09:35 Completed TROPONIN Q3H Lab 05/05/22 12:30 Ordered TROPONIN Q3H Lab 05/05/22 15:30 Ordered TROPONIN Q3H Lab 05/05/22 18:30 Ordered TROPONIN Q3H Lab 05/05/22 21:30 Ordered Medication Summary Discontinued Medications Generic Name Dose Route Start Last Admin Trade Name Freq PRN Reason Stop Dose Admin Sodium Chloride 500 mls @ 500 mls/hr 05/05/22 10:31 05/05/22 11:38 Sodium Chloride 0.9% 500 Ml IV 05/05/22 11:30 Infused .Q1H ONE Infusion Sodium Chloride Confirm 05/05/22 10:34 Sodium Chloride 0.9% 500 Ml Administered 05/05/22 10:35 Dose 500 mls @ ud IV .STK-MED ONE Lab/Rad Data: Laboratory Result Diagrams 05/05/22 09:35 05/05/22 09:35 Laboratory Results 05/05/22 05/05/22 05/05/22 Range/Units 09:47 09:35 09:35 WBC (4.0-10.5) x10^3/uL RBC (4.1-5.6) x10^6/uL Hgb (12.5-18.0) g/dL Hct (42-50) % MCV (78-100) fL MCH (26-32) pg MCHC (32-36) g/dL RDW (11.5-14.0) % Plt Count (150-450) x10^3/uL MPV (7.5-11.0) fL Gran % (36.0-66.0) % Immature Gran % (Auto) (0.00-0.4) % Nucleat RBC Rel Count (0.00-0.1) % Eos # (Auto) (0-0.5) x10^3/uL Immature Gran # (Auto) (0.00-0.03) x10^3u/L Absolute Lymphs (auto) (1.0-4.6) x10^3/uL Absolute Monos (auto) (0.0-1.3) x10^3/uL Absolute Nucleated RBC (0.00-0.01) x10^3u/L Lymphocytes % (24.0-44.0) % Monocytes % (0.0-12.0) % Eosinophils % (0.00-5.0) % Basophils % (0.0-0.4) % Absolute Granulocytes (1.4-6.9) x10^3/uL Basophils # (0-0.4) x10^3/uL D-Dimer 2.29 H* (0.0-0.50) mg/L Sodium (137-145) mmol/L Potassium (3.5-5.1) mmol/L Chloride (98-107) mmol/L Carbon Dioxide (22-30) mmol/L Anion Gap (5-15) MEQ/L BUN (9-20) mg/dL Creatinine (0.66-1.25) mg/dL Estimated GFR ML/MIN Glucose (74-106) mg/dL Calcium (8.4-10.2) mg/dL Total Bilirubin (0.2-1.3) mg/dL AST (17-59) U/L ALT (0-50) U/L Alkaline Phosphatase (38-126) U/L Troponin I < 0.012 (0.000-0.034) ng/mL NT-Pro-B Natriuret Pep (0-900) pg/mL Serum Total Protein (6.3-8.2) g/dL Albumin (3.5-5.0) g/dL Influenza Type A Ag NEGATIVE (NEGATIVE) Influenza Type B Ag NEGATIVE (NEGATIVE) RSV (PCR) NEGATIVE (Negative) SARS-CoV-2 (PCR) NEGATIVE (NEGATIVE) 05/05/22 05/05/22 Range/Units 09:35 09:35 WBC 9.5 (4.0-10.5) x10^3/uL RBC 3.81 L (4.1-5.6) x10^6/uL Hgb 11.6 L (12.5-18.0) g/dL Hct 36.2 L (42-50) % MCV 95.0 (78-100) fL MCH 30.4 (26-32) pg MCHC 32.0 (32-36) g/dL RDW 14.3 H (11.5-14.0) % Plt Count 428 (150-450) x10^3/uL MPV 7.9 (7.5-11.0) fL Gran % 79.4 H (36.0-66.0) % Immature Gran % (Auto) 0.4 (0.00-0.4) % Nucleat RBC Rel Count 0.0 (0.00-0.1) % Eos # (Auto) 0.21 (0-0.5) x10^3/uL Immature Gran # (Auto) 0.04 H (0.00-0.03) x10^3u/L Absolute Lymphs (auto) 0.90 L (1.0-4.6) x10^3/uL Absolute Monos (auto) 0.75 (0.0-1.3) x10^3/uL Absolute Nucleated RBC 0.00 (0.00-0.01) x10^3u/L Lymphocytes % 9.5 L (24.0-44.0) % Monocytes % 7.9 (0.0-12.0) % Eosinophils % 2.2 (0.00-5.0) % Basophils % 0.6 (0.0-0.4) % Absolute Granulocytes 7.51 H (1.4-6.9) x10^3/uL Basophils # 0.06 (0-0.4) x10^3/uL D-Dimer (0.0-0.50) mg/L Sodium 138 (137-145) mmol/L Potassium 4.2 (3.5-5.1) mmol/L Chloride 106 (98-107) mmol/L Carbon Dioxide 21 L (22-30) mmol/L Anion Gap 14.8 (5-15) MEQ/L BUN 25 H (9-20) mg/dL Creatinine 1.04 (0.66-1.25) mg/dL Estimated GFR > 60.0 ML/MIN Glucose 96 (74-106) mg/dL Calcium 9.2 (8.4-10.2) mg/dL Total Bilirubin 0.60 (0.2-1.3) mg/dL AST 23 (17-59) U/L ALT 19 (0-50) U/L Alkaline Phosphatase 155 H (38-126) U/L Troponin I (0.000-0.034) ng/mL NT-Pro-B Natriuret Pep 89.6 (0-900) pg/mL Serum Total Protein 7.7 (6.3-8.2) g/dL Albumin 4.1 (3.5-5.0) g/dL Influenza Type A Ag (NEGATIVE) Influenza Type B Ag (NEGATIVE) RSV (PCR) (Negative) SARS-CoV-2 (PCR) (NEGATIVE) - Progress Progress: improved, re-examined Air Movement: fair Progress Note: 05/05/22 11:41 Chest x-ray shows nonacute chest with chronic features. CTA of chest shows no pulmonary embolus. There is no new acute cardiopulmonary abnormalities. There is a T7 vertebral body lytic lesion present with scle rosis. In addition, there is right rib (#3) with lytic lesion worrisome for metastasis. This was discussed with the patient. He is to follow-up with the primary care physician for further evaluation. Blood Culture(s) Obtained: Yes Antibiotics given: No Counseled pt/family regarding: lab results, diagnosis, need for follow-up, rad results - Departure Departure Disposition: Home Clinical Impression: COPD exacerbation, Noncompliance with medication regimen, Lytic lesion of bone on x-ray Condition: Fair Critical Care Time: No Referrals: ELIUD DURON MD [Primary Care Provider] - Follow up/PCP as directed Instructions: Chronic Obstructive Pulmonary Disease Additional Instructions: Wear your oxygen as you are prescribed to wear via nasal cannula. Fill your steroid prescription that you received from [facility] today and begin taking it as prescribed. Fill your albuterol inhaler and albuterol solution vials for your nebulizer machine today and take them as prescribed. Stop smoking cigarettes. Follow-up with your primary doctor for possible referral to a bulk station operator if indicated. Prescriptions: Albuterol 2.5 mg/3 ml Neb [Proventil 2.5 mg/3 ml Neb] 2.5 mg IH Q6H #25 unit
[2022-05-05 09:41] LABS: Absolute Neutrophil Ct (ANC) 7.51 x10^3/uL (1.4-6.9); Basophil (Absolute #) 0.06 x10^3/uL (0-0.4); Eosinophil % 2.2 % (0.00-5.0); Eosinophil (Absolute #) 0.21 x10^3/uL (0-0.5); Hematocrit 36.2 % (42-50); Hemoglobin 11.6 g/dL (12.5-18.0); Lymphocytes % 9.5 % (24.0-44.0); Mean Corpuscular Hemoglobin 30.4 pg (26-32); Mean Platelet Volume 7.9 fL (7.5-11.0); Monocyte (Absolute #) 0.75 x10^3/uL (0.0-1.3); Monocytes % 7.9 % (0.0-12.0); Neutrophil % 79.4 % (36.0-66.0); Platelet Count 428 x10^3/uL (150-450); Red Blood Count 3.81 x10^6/uL (4.1-5.6); Red Cell Distribution Width 14.3 % (11.5-14.0); White Blood Count 9.5 x10^3/uL (4.0-10.5)
[2022-05-05 10:07] LABS: ALBUMIN 4.1 g/dL (3.5-5.0); ALKALINE PHOSPHATASE 155 U/L (38-126); ANION GAP 14.8 MEQ/L (5-15); BLOOD UREA NITROGEN 25 mg/dL (9-20); CHLORIDE 106 mmol/L (98-107); Calcium 9.2 mg/dL (8.4-10.2); Carbon Dioxide 21 mmol/L (22-30); Creatinine 1 1.04 mg/dL (0.66-1.25); EST GLOMERULAR FILTRATION RATE > 60.0 ML/MIN; Glucose 96 mg/dL (74-106); NT PRO BNP 89.6 pg/mL (0-900); Potassium 4.2 mmol/L (3.5-5.1); SGOT/AST 23 U/L (17-59); SGPT/ALT 19 U/L (0-50); SODIUM 138 mmol/L (137-145); Total Protein 7.7 g/dL (6.3-8.2)
--- NOTE | 2022-05-05 10:15 | XRAY ---
Indication: Short of breath. Comparison: June 10, 2020. Portable chest demonstrates interval right lung clearing with now minimal right base fibrosis/scarring. Remaining heart and lungs unremarkable. Bony thorax intact again with mild osteopenia, degenerative changes, and old right clavicle fracture. Impression: Nonacute chest with chronic features.
[2022-05-05] MEDS ORDERED: Sodium Chloride 0.9% 500 ML 500 ML IV ONE ×2 (10:31→10:34)
[2022-05-05 10:37] LABS: INFLUENZA A NEGATIVE (NEGATIVE); INFLUENZA B NEGATIVE (NEGATIVE); RESPIRATORY SYNCTIAL VIRUS NEGATIVE (Negative); SARS-CoV-2 Xpert Express NEGATIVE (NEGATIVE)
--- NOTE | 2022-05-05 11:31 | XRAY ---
Indication: Short of breath. Elevated d-dimer. COPD. Multiple contiguous images obtained through the chest using 80 cc Isovue 370 contrast and PE protocol. Comparison: January 01, 2021. Good opacification of the pulmonary arteries to include the lobar and segmental branches. No pulmonary embolus. Heart is not enlarged. Aorta is normal in course and caliber. No pathologic mediastinal/hilar lymphadenopathy. Lungs again demonstrates diffuse pulmonary emphysema, posterior right lower lobe subsegmental atelectasis/scarring, and posterior right lower lobe calcified pleural plaquing. No new pulmonary mass, infiltrate, or effusion. Bony thorax intact again with mild osteopenia and minimal degenerative changes. T7 segment demonstrates new 1.6 cm osteolytic lesion with surrounding sclerosis worrisome for malignancy. Also new T7 vertebral height loss less than 25% favoring pathologic fracture. Additional new anterior right 3 rib expansile lytic lesion also worrisome for malignancy. Limited upper abdomen including adrenal glands are unremarkable. Impression: 1. Negative pulmonary embolus. No new/acute cardiopulmonary abnormalities. 2. Again chronic findings including pulmonary emphysema, right lower lobe subsegmental atelectasis/scarring, and right lower lobe calcified pleural plaquing 3. New T7 vertebral body lytic lesion with surrounding sclerosis, T7 pathologic endplate fracture, and right 3 rib expansile lytic lesion all worrisome for metastasis.
[2022-05-05 12:30] VITALS: BP 120/98; PULSE 98; O2SAT 94
== END 2022-05-05 12:50 | disposition home or self-care (01) ==
LOC: ED 08:54
DX: J44.1 Chronic obstructive pulmonary disease with (acute) exacerbation (principal); M89.9 Disorder of bone, unspecified; Z91.14 Patient's other noncompliance with medication regimen; Z72.0 Tobacco use; Z99.81 Dependence on supplemental oxygen; Z79.899 Other long term (current) drug therapy; Z86.73 Personal history of transient ischemic attack (TIA), and cerebral infarction without residual deficits
CPT/HCPCS: 0241U; 36000; 36415; 71045; 71260; 80053; 83880; 84484; 85025; 85379; 93005; 93041; 94760; 96374; 99284

== ENCOUNTER 2022-06-01 11:01 | Emergency (ER) | payer MEDICARE ==
--- NOTE | 2022-06-01 11:02 | ERPHSYRPT ---
- History of Present Illness Time Seen by Provider: 06/01/22 11:02 Source: patient, EMS Exam Limitations: no limitations Physician History: This is a 66-year-old thin white male patient who was brought in by ambulance service because of complaint of shortness of air. In route to the emergency department, the patient received 125 mg of intravenous Solu-Medrol as well as a DuoNeb nebulizer treatment. By the time he arrived to the emergency room, patient states that his breathing was much better. His oxygenation saturation level was 96 to 98% on his usual home 3 L oxygen nasal cannula. Patient was seen here on 05/03/2022 with the same symptoms. The patient is noncompliant. He has a history of COPD. He continues to smoke cigarettes daily. He has some anxiety issues as well as chronic alcoholism. Patient's primary complaint seems to be his chronic back pain. He is out of his tramadol medication. Patient denies chest pain. He does not have a cough. He has not had a fever. Patient states that he did not fall or have any traumatic injury to his back. Patient states that he has albuterol inhaler and albuterol solution for his nebulizer machine. Timing/Duration: day(s) (A few days) Activities at Onset: activity Severity of Dyspnea-Max: moderate Severity of Dyspnea-Current: none Possible Cause: frequent episodes Modifying Factors: Improves With: activity, albuterol nebulizer (Improved), oxygen (Improved), other (Solu-Medrol injection improved his symptoms) Associated Symptoms: wheezing (At home) Allergies/Adverse Reactions: No Known Drug Allergies Allergy (Verified 05/05/22 09:12) Home Medications: Albuterol Common Canister [Ventolin Common Canister] 2 puff PO DAILY PRN 06/09/20 [History] Tramadol HCl 50 mg [Ultram 50 mg] 50 mg PO DAILY 06/01/22 [History] Hx Tetanus, Diphtheria Vaccination/Date Given: Yes Hx Influenza Vaccination/Date Given: Yes Hx Pneumococcal Vaccination/Date Given: Yes Travel Risk - International Travel Have you traveled outside of the country in past 3 weeks: No - Coronavirus Screening Are you exhibiting any of the following symptoms?: No Close contact with a COVID-19 positive Pt in past 14-21 Days: No - Vaccine Status Have you recieved a Covid-19 vaccination: Yes Yoke Presser: Unknown - Vaccination Dates Date of 2cond Vaccination (if applicable): UNK Dates if Unknown: UNK - Review of Systems Constitutional: No Symptoms Eyes: No Symptoms Ears, Nose, & Throat: No Symptoms Respiratory: Dyspnea, Wheezing, No Cough Cardiac: No Symptoms, No Chest Pain Abdominal/Gastrointestinal: No Symptoms Genitourinary Symptoms: No Symptoms Musculoskeletal: Back Pain (Chronic) Skin: No Symptoms Neurological: No Symptoms Psychological: No Symptoms Endocrine: No Symptoms Hematologic/Lymphatic: No Symptoms Immunological/Allergic: No Symptoms All Other Systems: Reviewed and Negative - Past Medical History Pertinent Past Medical History: Yes Neurological History: Stroke ENT History: No Pertinent History Cardiac History: Other Respiratory History: COPD Endocrine Medical History: No Pertinent History Musculoskeletal History: No Pertinent History GI Medical History: No Pertinent History History: No Pertinent History Psycho-Social History: Anxiety, Panic Disorder Male Reproductive Disorders: No Pertinent History Other Medical History: shoulder; alcoholism/heavy drinker - Past Surgical History Past Surgical History: Yes Neuro Surgical History: No Pertinent History Cardiac: No Pertinent History Respiratory: No Pertinent History Gastrointestinal: Hernia Repair Genitourinary: No Pertinent History Musculoskeletal: Orthopedic Surgery Male Surgical History: No Pertinent History Other Surgical History: TONSILS. EXPLORATORY ABD SURGURY, shoulder surgery , knee , both hands - Social History Smoking Status: Current every day smoker How long have you smoked: over 30 yr Exposure to second hand smoke: Yes Drug Use: none Patient Lives Alone: Yes Significant Family History: no pertinent family hx - Nursing Vital Signs Nursing Vital Signs: Initial Vital Signs Temperature 98.8 F 06/01/22 11:02 Pulse Rate 91 H 06/01/22 11:02 Respiratory Rate 24 06/01/22 11:02 Blood Pressure 126/89 06/01/22 11:02 O2 Sat by Pulse Oximetry 100 06/01/22 11:02 Pain Scale Pain Intensity 4 - Physical Exam General Appearance: no apparent distress, alert, thin Eye Exam: PERRL/EOMI, eyes nml inspection Ears, Nose, Throat Exam: hearing grossly normal, normal ENT inspection, normal pharynx Neck Exam: normal inspection, non-tender, supple, full range of motion Respiratory Exam: normal breath sounds, lungs clear, airway intact, No chest tenderness, No respiratory distress Cardiovascular/Chest Exam: normal heart sounds, regular rate/rhythm Abdominal/Gastrointestinal Exam: soft, normal bowel sounds, No tenderness Rectal Exam: not done Extremity Exam: non-tender, normal range of motion, normal inspection, normal capillary refill, no calf tenderness, no pedal edema, pelvis stable Peripheral Pulses Exam: dorsalis-pedis (R): 2+, dorsalis-pedis (L): 2+ Neurologic Exam: alert, oriented x 3, cooperative, health plan manager II-XII nml as tested, normal mood/affect, sensation nml Skin Exam: normal color, warm, dry Lymphatic Exam: No adenopathy SpO2 Interpretation: normal O2 Delivery: Nasal Cannula (3 L oxygen nasal cannula) - Course Nursing assessment & vital signs reviewed: Yes EKG Interpreted by Me: RATE, Sinus Rhythm (92), NORMAL AXIS, NORMAL INTERVALS, NORMAL QRS, NORMAL ST-T, Other (Left anterior fascicular block. When compared to twelve-lead EKG dated 05/05/2022, there is now normal sinus rhythm. There are no acute ischemic changes on today's EKG. The remainder of the twelve-lead EKG today is no different than that comparison EKG.) Ordered Tests: Active Orders 24 hr Category Date Time Status Department Operations Manager STAT Care 06/01/22 11:08 Active EKG-ER Only STAT Care 06/01/22 11:08 Active Oxygen-ED Only Nasal Cannula 3 lpm Care 06/01/22 11:08 Active CHEST 1 VIEW (PORTABLE) Stat Exams 06/01/22 11:08 Completed BLOOD CULTURE Stat Lab 06/01/22 11:24 Received CBC W DIFF Stat Lab 06/01/22 11:08 Completed CMP Stat Lab 06/01/22 11:19 Completed D-DIMER QUANTITATIVE Stat Lab 06/01/22 11:19 Completed Lactic Acid Stat Lab 06/01/22 11:08 Completed NT PRO BNP Stat Lab 06/01/22 11:19 Completed TROPONIN Q3H Lab 06/01/22 11:19 Completed TROPONIN Q3H Lab 06/01/22 14:15 Ordered TROPONIN Q3H Lab 06/01/22 17:15 Ordered TROPONIN Q3H Lab 06/01/22 20:15 Ordered TROPONIN Q3H Lab 06/01/22 23:15 Ordered Medication Summary Discontinued Medications Generic Name Dose Route Start Last Admin Trade Name Freq PRN Reason Stop Dose Admin Methylprednisolone Sodium 0 mg 06/01/22 11:08 06/01/22 11:15 Succinate 125 mg/ Sterile IV 06/01/22 11:09 Not Given Water 2 ml STAT ONE Morphine Sulfate 4 mg 06/01/22 11:39 06/01/22 11:42 Morphine Sulfate 4 Mg/Ml Injection IV 06/01/22 11:40 4 mg STAT ONE Administration Morphine Sulfate Confirm 06/01/22 11:41 Morphine Sulfate 4 Mg/Ml Injection Administered 06/01/22 11:42 Dose 4 mg .ROUTE .STK-MED ONE Ondansetron HCl 4 mg 06/01/22 11:39 06/01/22 11:41 Ondansetron Hcl 4 Mg/2 Ml Vial IV 06/01/22 11:40 4 mg STAT ONE Administration Ondansetron HCl Confirm 06/01/22 11:40 Ondansetron Hcl 4 Mg/2 Ml Vial Administered 06/01/22 11:41 Dose 4 mg .ROUTE .STK-MED ONE Lab/Rad Data: Laboratory Result Diagrams 06/01/22 11:08 06/01/22 11:19 Laboratory Results 06/01/22 06/01/22 06/01/22 Range/Units 11:19 11:19 11:19 WBC (4.0-10.5) x10^3/uL RBC (4.1-5.6) x10^6/uL Hgb (12.5-18.0) g/dL Hct (42-50) % MCV (78-100) fL MCH (26-32) pg MCHC (32-36) g/dL RDW (11.5-14.0) % Plt Count (150-450) x10^3/uL MPV (7.5-11.0) fL Gran % (36.0-66.0) % Immature Gran % (Auto) (0.00-0.4) % Nucleat RBC Rel Count (0.00-0.1) % Eos # (Auto) (0-0.5) x10^3/uL Immature Gran # (Auto) (0.00-0.03) x10^3u/L Absolute Lymphs (auto) (1.0-4.6) x10^3/uL Absolute Monos (auto) (0.0-1.3) x10^3/uL Absolute Nucleated RBC (0.00-0.01) x10^3u/L Lymphocytes % (24.0-44.0) % Monocytes % (0.0-12.0) % Eosinophils % (0.00-5.0) % Basophils % (0.0-0.4) % Absolute Granulocytes (1.4-6.9) x10^3/uL Basophils # (0-0.4) x10^3/uL D-Dimer 2.24 H* (0.0-0.50) mg/L Sodium 136 L (137-145) mmol/L Potassium 3.6 (3.5-5.1) mmol/L Chloride 98 (98-107) mmol/L Carbon Dioxide 29 (22-30) mmol/L Anion Gap 12.2 (5-15) MEQ/L BUN 8 L (9-20) mg/dL Creatinine 0.97 (0.66-1.25) mg/dL Estimated GFR > 60.0 ML/MIN Glucose 104 (74-106) mg/dL Lactic Acid (0.4-2.0) Calcium 9.3 (8.4-10.2) mg/dL Total Bilirubin 0.60 (0.2-1.3) mg/dL AST 16 L (17-59) U/L ALT 10 (0-50) U/L Alkaline Phosphatase 136 H (38-126) U/L Troponin I < 0.012 (0.000-0.034) ng/mL NT-Pro-B Natriuret Pep 183 (0-900) pg/mL Serum Total Protein 7.6 (6.3-8.2) g/dL Albumin 3.9 (3.5-5.0) g/dL 06/01/22 06/01/22 Range/Units 11:08 11:08 WBC 9.1 (4.0-10.5) x10^3/uL RBC 3.50 L (4.1-5.6) x10^6/uL Hgb 10.7 L (12.5-18.0) g/dL Hct 33.5 L (42-50) % MCV 95.7 (78-100) fL MCH 30.6 (26-32) pg MCHC 31.9 L (32-36) g/dL RDW 14.6 H (11.5-14.0) % Plt Count 539 H (150-450) x10^3/uL MPV 7.9 (7.5-11.0) fL Gran % 80.0 H (36.0-66.0) % Immature Gran % (Auto) 0.3 (0.00-0.4) % Nucleat RBC Rel Count 0.0 (0.00-0.1) % Eos # (Auto) 0.06 (0-0.5) x10^3/uL Immature Gran # (Auto) 0.03 (0.00-0.03) x10^3u/L Absolute Lymphs (auto) 0.84 L (1.0-4.6) x10^3/uL Absolute Monos (auto) 0.85 (0.0-1.3) x10^3/uL Absolute Nucleated RBC 0.00 (0.00-0.01) x10^3u/L Lymphocytes % 9.2 L (24.0-44.0) % Monocytes % 9.3 (0.0-12.0) % Eosinophils % 0.7 (0.00-5.0) % Basophils % 0.5 (0.0-0.4) % Absolute Granulocytes 7.31 H (1.4-6.9) x10^3/uL Basophils # 0.05 (0-0.4) x10^3/uL D-Dimer (0.0-0.50) mg/L Sodium (137-145) mmol/L Potassium (3.5-5.1) mmol/L Chloride (98-107) mmol/L Carbon Dioxide (22-30) mmol/L Anion Gap (5-15) MEQ/L BUN (9-20) mg/dL Creatinine (0.66-1.25) mg/dL Estimated GFR ML/MIN Glucose (74-106) mg/dL Lactic Acid 0.8 (0.4-2.0) Calcium (8.4-10.2) mg/dL Total Bilirubin (0.2-1.3) mg/dL AST (17-59) U/L ALT (0-50) U/L Alkaline Phosphatase (38-126) U/L Troponin I (0.000-0.034) ng/mL NT-Pro-B Natriuret Pep (0-900) pg/mL Serum Total Protein (6.3-8.2) g/dL Albumin (3.5-5.0) g/dL - Progress Progress: improved, re-examined Air Movement: good Progress Note: 06/01/22 12:50 Medical decision making: This patient has COPD exacerbation. He is out of the steroid which we will refill for him. We will also refill 5 days of his tramadol. I reminded the patient that he has lytic lesions in his spine and that his pain in his back might not improve unless this issue was addressed. He states that he is following up with a back specialist on 06/04/2022. Patient states he is breathing well at this time. He has no chest pain. His oxygen saturation level on 3 L oxygen nasal cannula, is 98%. This is what he uses at home. Blood Culture(s) Obtained: Yes Counseled pt/family regarding: lab results, diagnosis, need for follow-up, rad results - Departure Departure Disposition: Home Clinical Impression: COPD exacerbation Condition: Stable Critical Care Time: No Referrals: ELIUD DURON MD [Primary Care Provider] - Follow up/PCP as directed Instructions: Chronic Obstructive Pulmonary Disease Additional Instructions: Take your medication as prescribed. Follow-up with your prescribing doctors for further evaluation and management. Prescriptions: Prednisone 10 mg [Deltasone 10 mg] 10 mg PO TID #12 tablet Tramadol HCl 50 mg [Ultram 50 mg] 50 mg PO TID PRN #15 tablet PRN Reason: Moderate To Severe Pain
[2022-06-01] MEDS ORDERED: solu-MEDROL 125 MG, Sterile H2O 10 ml 2 ML IV ONE ×2 (11:08)
[2022-06-01 11:34] LABS: Absolute Neutrophil Ct (ANC) 7.31 x10^3/uL (1.4-6.9); Basophil (Absolute #) 0.05 x10^3/uL (0-0.4); Eosinophil % 0.7 % (0.00-5.0); Eosinophil (Absolute #) 0.06 x10^3/uL (0-0.5); Hematocrit 33.5 % (42-50); Hemoglobin 10.7 g/dL (12.5-18.0); Lymphocyte (Absolute #) 0.84 x10^3/uL (1.0-4.6); Lymphocytes % 9.2 % (24.0-44.0); Mean Cell Volume 95.7 fL (78-100); Mean Corpuscular Hemoglobin 30.6 pg (26-32); Mean Corpuscular Hgb Concent. 31.9 g/dL (32-36); Mean Platelet Volume 7.9 fL (7.5-11.0); Monocyte (Absolute #) 0.85 x10^3/uL (0.0-1.3); Monocytes % 9.3 % (0.0-12.0); Platelet Count 539 x10^3/uL (150-450); Red Cell Distribution Width 14.6 % (11.5-14.0); White Blood Count 9.1 x10^3/uL (4.0-10.5)
--- NOTE | 2022-06-01 11:36 | XRAY ---
Indication: Short of breath. Comparison: May 05, 2022. Portable chest limited as left costophrenic angle not included in [id number]. Lungs remain hyperinflated with new small right pleural effusion. Remaining heart and lungs unremarkable.
[2022-06-01] MEDS ORDERED: Zofran 4 MG/2 ML VIAL IV ONE (11:39)
[2022-06-01] MEDS ORDERED: MORPHINE SULFATE 4 MG INJ IV ONE (11:39)
[2022-06-01] MEDS ORDERED: Zofran 4 MG/2 ML VIAL ONE (11:40)
[2022-06-01] MEDS ORDERED: MORPHINE SULFATE 4 MG INJ ONE (11:41)
[2022-06-01 12:16] LABS: ALBUMIN 3.9 g/dL (3.5-5.0); ALKALINE PHOSPHATASE 136 U/L (38-126); ANION GAP 12.2 MEQ/L (5-15); BLOOD UREA NITROGEN 8 mg/dL (9-20); CHLORIDE 98 mmol/L (98-107); Calcium 9.3 mg/dL (8.4-10.2); Carbon Dioxide 29 mmol/L (22-30); Creatinine 1 0.97 mg/dL (0.66-1.25); EST GLOMERULAR FILTRATION RATE > 60.0 ML/MIN; Glucose 104 mg/dL (74-106); NT PRO BNP 183 pg/mL (0-900); Potassium 3.6 mmol/L (3.5-5.1); SGOT/AST 16 U/L (17-59); SGPT/ALT 10 U/L (0-50); SODIUM 136 mmol/L (137-145); Total Protein 7.6 g/dL (6.3-8.2)
[2022-06-01 12:22] VITALS: O2SAT 96
[2022-06-01 13:02] VITALS: BP 128/89; PULSE 82
== END 2022-06-01 13:34 | disposition home or self-care (01) ==
LOC: ED 11:01
DX: J44.1 Chronic obstructive pulmonary disease with (acute) exacerbation (principal); Z99.81 Dependence on supplemental oxygen; Z72.0 Tobacco use; R06.02 Shortness of breath; G89.29 Other chronic pain; M54.50 Low back pain, unspecified; Z79.52 Long term (current) use of systemic steroids; Z79.891 Long term (current) use of opiate analgesic
CPT/HCPCS: 36000; 36415; 71045; 80053; 83605; 83880; 84484; 85025; 85379; 87040; 93005; 93041; 96374; 96375; 99284; J2270; J2405

== ENCOUNTER 2022-07-04 10:24 | Emergency (ER) | payer MEDICARE ==
[2022-07-04] MEDS ORDERED: TETRACAINE 0.5% STERI-UNIT SOL OP ONE (10:40)
[2022-07-04] MEDS ORDERED: Cortisporin Eye Drops OP ONE (10:52)
[2022-07-04] MEDS ORDERED: Cortisporin Eye Drops OP SCH (11:00)
[2022-07-04] MEDS ORDERED: TETRACAINE 0.5% STERI-UNIT SOL OP STA (11:00)
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
== END 2022-07-04 11:16 | disposition home or self-care (01) ==
LOC: ED 10:24
DX: H16.9 Unspecified keratitis (principal); H10.9 Unspecified conjunctivitis; H57.12 Ocular pain, left eye; J44.9 Chronic obstructive pulmonary disease, unspecified; Z72.0 Tobacco use
CPT/HCPCS: 99281; A9270-GY

== ENCOUNTER 2022-08-09 17:46 | Observation (INO) | payer MEDICARE ==
--- NOTE | 2022-08-09 17:50 | ERPHSYRPT ---
- History of Present Illness Time Seen by Provider: 08/09/22 17:50 Source: patient Exam Limitations: no limitations Physician History: Is a 66-year-old cachectic appearing white male who has a history of oxygen dependent COPD and usually wears 3 L of oxygen via nasal cannula at home. He arrives emergency department without any oxygen in place. Patient is a chronic smoker and has a history of alcoholism/heavy drinking of alcohol. Patient also has a history of anxiety and panic disorder. He presents to the emergency department with shortness of breath, generalized not feeling well, and fever. Patient was recently diagnosed with lung cancer and received his first immunotherapy/chemotherapy today. Timing/Duration: today Severity: moderate Modifying Factors: Improves With: nothing Associated Symptoms: shortness of breath, fever Allergies/Adverse Reactions: No Known Drug Allergies Allergy (Verified 08/09/22 17:50) Home Medications: Albuterol Common Canister [Ventolin Common Canister] 2 puff PO DAILY PRN 06/09/20 [History] Hx Tetanus, Diphtheria Vaccination/Date Given: No (unsure) Hx Influenza Vaccination/Date Given: Yes Hx Pneumococcal Vaccination/Date Given: Yes Travel Risk - International Travel Have you traveled outside of the country in past 3 weeks: No - Coronavirus Screening Are you exhibiting any of the following symptoms?: Yes Symptoms: Fever, Shortness of Breath - Vaccine Status Have you recieved a Covid-19 vaccination: Yes Stand In: Moderna - Vaccination Dates Date of 2cond Vaccination (if applicable): UNK Dates if Unknown: UNK - Review of Systems Constitutional: Fever, Weakness Eyes: No Symptoms Ears, Nose, & Throat: No Symptoms Respiratory: Cough, Dyspnea Cardiac: No Symptoms Abdominal/Gastrointestinal: Nausea, No Abdominal Pain, No Vomiting, No Diarrhea Genitourinary Symptoms: No Symptoms Musculoskeletal: No Symptoms Skin: No Symptoms Neurological: No Symptoms Psychological: No Symptoms Endocrine: No Symptoms Hematologic/Lymphatic: No Symptoms Immunological/Allergic: No Symptoms All Other Systems: Reviewed and Negative - Past Medical History Pertinent Past Medical History: Yes Neurological History: Stroke ENT History: No Pertinent History Cardiac History: Other Respiratory History: COPD Endocrine Medical History: No Pertinent History Musculoskeletal History: No Pertinent History GI Medical History: No Pertinent History History: No Pertinent History Psycho-Social History: Anxiety, Panic Disorder Male Reproductive Disorders: No Pertinent History Other Medical History: shoulder; alcoholism/heavy drinker - Past Surgical History Past Surgical History: Yes Neuro Surgical History: No Pertinent History Cardiac: No Pertinent History Respiratory: No Pertinent History Gastrointestinal: Hernia Repair Genitourinary: No Pertinent History Musculoskeletal: Orthopedic Surgery Male Surgical History: No Pertinent History Other Surgical History: TONSILS. EXPLORATORY ABD SURGURY, shoulder surgery , knee , both hands - Social History Smoking Status: Current every day smoker How long have you smoked: over 30 yr Exposure to second hand smoke: Yes Drug Use: none Patient Lives Alone: Yes Significant Family History: no pertinent family hx - Nursing Vital Signs Nursing Vital Signs: Initial Vital Signs Temperature 103 F 08/09/22 17:51 Pulse Rate 120 H 08/09/22 17:51 Respiratory Rate 24 08/09/22 17:51 Blood Pressure 180/121 08/09/22 17:51 O2 Sat by Pulse Oximetry 90 L 08/09/22 17:51 Pain Scale Pain Intensity 6 - Physical Exam General Appearance: mild distress, alert, anxiety, cachetic Eye Exam: PERRL/EOMI, eyes nml inspection Ears, Nose, Throat Exam: normal ENT inspection, moist mucous membranes Neck Exam: normal inspection, non-tender, supple, full range of motion Respiratory Exam: normal breath sounds, lungs clear, respiratory distress, airway intact, No chest tenderness Cardiovascular Exam: tachycardia Gastrointestinal/Abdomen Exam: soft, normal bowel sounds, No tenderness Rectal Exam: not done Back Exam: normal inspection, normal range of motion, No CVA tenderness, No vertebral tenderness Extremity Exam: normal inspection, normal range of motion, pelvis stable Neurologic Exam: alert, oriented x 3, cooperative, horse race timer II-XII nml as tested, normal mood/affect, nml cerebellar function, nml station & gait, sensation nml Skin Exam: normal color, warm, dry Lymphatic Exam: No adenopathy SpO2 Interpretation: normal O2 Delivery: Room Air - Course Nursing assessment & vital signs reviewed: Yes Ordered Tests: Active Orders 24 hr Category Date Time Status Technical Services Consultant STAT Care 08/09/22 18:02 Active EKG-ER Only STAT Care 08/09/22 18:01 Active IV Insertion STAT Care 08/09/22 18:01 Active Pulse Oximetry (ED) STAT Care 08/09/22 18:01 Active CHEST 1 VIEW (PORTABLE) Routine Exams 08/09/22 18:12 Taken BLOOD CULTURE Stat Lab 08/09/22 18:10 Received CBC W DIFF Stat Lab 08/09/22 18:10 Completed CMP Stat Lab 08/09/22 18:10 Completed Lactic Acid Stat Lab 08/09/22 18:01 Completed Lactic Acid Stat Lab 08/09/22 20:20 Received NT PRO BNP Stat Lab 08/09/22 18:10 Completed TROPONIN Q4H Lab 08/09/22 18:10 Completed TROPONIN Q4H Lab 08/09/22 22:15 Ordered TROPONIN Q4H Lab 08/10/22 02:15 Ordered Respiratory Therapy Assessment DAILY RT 08/09/22 19:19 Completed Medication Summary Generic Name Dose Route Start Last Admin Trade Name Freq PRN Reason Stop Dose Admin Sodium Chloride 1,000 mls @ 200 mls/hr 08/09/22 18:15 08/09/22 20:01 Sodium Chloride 0.9% 1000 Ml IV 09/08/22 18:14 Infused .Q5H ZHOU Infusion Sodium Chloride 1,000 mls @ 250 mls/hr 08/09/22 20:00 08/09/22 20:10 Sodium Chloride 0.9% 1000 Ml IV 09/08/22 19:59 250 mls/hr .Q4H ZHOU Administration Discontinued Medications Generic Name Dose Route Start Last Admin Trade Name Freq PRN Reason Stop Dose Admin Hydrocodone Bitart/Acetaminophen 10 ml 08/09/22 18:08 08/09/22 18:20 Hydrocodone/Acetaminophen 5 Ml Udcup PO 08/09/22 18:09 10 ml STAT STA Administration Hydrocodone Bitart/Acetaminophen Confirm 08/09/22 18:18 Hydrocodone/Acetaminophen 5 Ml Udcup Administered 08/09/22 18:19 Dose 10 ml .ROUTE .STK-MED ONE Albuterol/Ipratropium Confirm 08/09/22 19:16 Ipratropium/Albuterol Sulfate 3 Ml Ampul.Neb Administered 08/09/22 19:17 Dose 3 ml IH .STK-MED ONE Albuterol/Ipratropium 3 ml 08/09/22 19:18 08/09/22 19:19 Ipratropium/Albuterol Sulfate 3 Ml Ampul.Neb IH 08/09/22 19:19 3 ml STAT ONE Administration Methylprednisolone Sodium 0 mg 08/09/22 18:01 08/09/22 18:12 Succinate 125 mg/ Sterile IV 08/09/22 18:02 125 mg Water 2 ml STAT ONE Administration Levofloxacin/Dextrose 500 mg in 100 mls @ 100 mls/hr 08/09/22 18:01 08/09/22 20:01 Levofloxacin 500mg/100ml D5w IV 08/09/22 19:00 Infused STAT STA Infusion Levofloxacin/Dextrose Confirm 08/09/22 18:08 Levofloxacin 500mg/100ml D5w Administered 08/09/22 18:09 Dose 500 mg in 100 mls @ ud IV .STK-MED ONE Lorazepam 1 mg 08/09/22 19:14 08/09/22 19:24 Lorazepam 2 Mg/1 Ml 2 Mg Vial IV 08/09/22 19:15 1 mg STAT ONE Administration Lorazepam Confirm 08/09/22 19:22 Lorazepam 2 Mg/1 Ml 2 Mg Vial Administered 08/09/22 19:23 Dose 2 mg .ROUTE .STK-MED ONE Methylprednisolone Sodium Succinate Confirm 08/09/22 18:08 Methylprednis Sod Succ 125 Mg/2 Ml Vial Administered 08/09/22 18:09 Dose 125 mg .ROUTE .STK-MED ONE Metoprolol Tartrate 2.5 mg 08/09/22 19:58 08/09/22 20:10 Metoprolol Tartrate 5 Mg/5 Ml Vial IV 08/09/22 19:59 2.5 mg STAT ONE Administration Metoprolol Tartrate Confirm 08/09/22 20:01 Metoprolol Tartrate 5 Mg/5 Ml Vial Administered 08/09/22 20:02 Dose 5 mg IV .STK-MED ONE Sterile Water Confirm 08/09/22 18:08 Water For Injection,Sterile 10 Ml Vial Administered 08/09/22 18:09 Dose 10 ml IJ .STK-MED ONE Lab/Rad Data: Laboratory Result Diagrams 08/09/22 18:10 08/09/22 18:10 Laboratory Results 08/09/22 08/09/22 08/09/22 Range/Units 18:15 18:10 18:10 WBC (4.0-10.5) x10^3/uL RBC (4.1-5.6) x10^6/uL Hgb (12.5-18.0) g/dL Hct (42-50) % MCV (78-100) fL MCH (26-32) pg MCHC (32-36) g/dL RDW (11.5-14.0) % Plt Count (150-450) x10^3/uL MPV (7.5-11.0) fL Gran % (36.0-66.0) % Immature Gran % (Auto) (0.00-0.4) % Nucleat RBC Rel Count (0.00-0.1) % Eos # (Auto) (0-0.5) x10^3/uL Immature Gran # (Auto) (0.00-0.03) x10^3u/L Absolute Lymphs (auto) (1.0-4.6) x10^3/uL Absolute Monos (auto) (0.0-1.3) x10^3/uL Absolute Nucleated RBC (0.00-0.01) x10^3u/L Lymphocytes % (24.0-44.0) % Monocytes % (0.0-12.0) % Eosinophils % (0.00-5.0) % Basophils % (0.0-0.4) % Absolute Granulocytes (1.4-6.9) x10^3/uL Basophils # (0-0.4) x10^3/uL Sodium 132 L (137-145) mmol/L Potassium 4.7 (3.5-5.1) mmol/L Chloride 97 L (98-107) mmol/L Carbon Dioxide 27 (22-30) mmol/L Anion Gap 12.6 (5-15) MEQ/L BUN 20 (9-20) mg/dL Creatinine 1.07 (0.66-1.25) mg/dL Estimated GFR > 60.0 ML/MIN Glucose 127 H (74-106) mg/dL Lactic Acid (0.4-2.0) Calcium 8.8 (8.4-10.2) mg/dL Total Bilirubin 0.70 (0.2-1.3) mg/dL AST 32 (17-59) U/L ALT 21 (0-50) U/L Alkaline Phosphatase 479 H (38-126) U/L Troponin I 0.029 (0.000-0.034) ng/mL NT-Pro-B Natriuret Pep 1340 H (0-900) pg/mL Serum Total Protein 8.0 (6.3-8.2) g/dL Albumin 4.0 (3.5-5.0) g/dL Influenza Type A Ag NEGATIVE (NEGATIVE) Influenza Type B Ag NEGATIVE (NEGATIVE) RSV (PCR) NEGATIVE (Negative) SARS-CoV-2 (PCR) NEGATIVE (NEGATIVE) Group A Strep Antibody NOT DETECTED (NEGATIVE) Slides for Path Review 08/09/22 08/09/22 Range/Units 18:10 18:01 WBC 10.8 H (4.0-10.5) x10^3/uL RBC 3.48 L (4.1-5.6) x10^6/uL Hgb 10.0 L (12.5-18.0) g/dL Hct 32.2 L (42-50) % MCV 92.5 (78-100) fL MCH 28.7 (26-32) pg MCHC 31.1 L (32-36) g/dL RDW 15.0 H (11.5-14.0) % Plt Count 425 (150-450) x10^3/uL MPV 8.4 (7.5-11.0) fL Gran % 92.2 H (36.0-66.0) % Immature Gran % (Auto) 1.4 H (0.00-0.4) % Nucleat RBC Rel Count 0.0 (0.00-0.1) % Eos # (Auto) 0 (0-0.5) x10^3/uL Immature Gran # (Auto) 0.15 H (0.00-0.03) x10^3u/L Absolute Lymphs (auto) 0.21 L (1.0-4.6) x10^3/uL Absolute Monos (auto) 0.42 (0.0-1.3) x10^3/uL Absolute Nucleated RBC 0.00 (0.00-0.01) x10^3u/L Lymphocytes % 1.9 L (24.0-44.0) % Monocytes % 3.9 (0.0-12.0) % Eosinophils % 0.0 (0.00-5.0) % Basophils % 0.6 (0.0-0.4) % Absolute Granulocytes 9.96 H (1.4-6.9) x10^3/uL Basophils # 0.06 (0-0.4) x10^3/uL Sodium (137-145) mmol/L Potassium (3.5-5.1) mmol/L Chloride (98-107) mmol/L Carbon Dioxide (22-30) mmol/L Anion Gap (5-15) MEQ/L BUN (9-20) mg/dL Creatinine (0.66-1.25) mg/dL Estimated GFR ML/MIN Glucose (74-106) mg/dL Lactic Acid 2.2 H (0.4-2.0) Calcium (8.4-10.2) mg/dL Total Bilirubin (0.2-1.3) mg/dL AST (17-59) U/L ALT (0-50) U/L Alkaline Phosphatase (38-126) U/L Troponin I (0.000-0.034) ng/mL NT-Pro-B Natriuret Pep (0-900) pg/mL Serum Total Protein (6.3-8.2) g/dL Albumin (3.5-5.0) g/dL Influenza Type A Ag (NEGATIVE) Influenza Type B Ag (NEGATIVE) RSV (PCR) (Negative) SARS-CoV-2 (PCR) (NEGATIVE) Group A Strep Antibody (NEGATIVE) Slides for Path Review YES - Progress Progress: improved, re-examined Progress Note: 08/09/22 20:46 Chest x-ray shows no acute cardiopulmonary process. Medical decision making: This patient was mildly hypoxic when he first came into the emergency department. However, he did not have the oxygen on that he normally does. When he was placed on oxygen therapy his room air oxygenation at the time of discharge is 98%. He was still tachycardic but that has improved as well. His viral studies are negative. His troponin level was in the high normal range. Patient is only mildly anemic. Patient does not want to be admitted to any facility. He wants to go home. I explained to him the benefits of being admitted in the hospital and the risk of not being admitted or observed in the hospital. After discussion he still wants to go home and he will sign AGAINST MEDICAL ADVICE form. His sister also wanted him to be placed in observation or admitted in the hospital. However, he wants to go home. Counseled pt/family regarding: lab results, diagnosis, need for follow-up, rad results - Departure Departure Disposition: AMA Clinical Impression: Hypoxia, Shortness of breath, Fever, Tachycardia Condition: Fair Critical Care Time: No Referrals: ELIUD DURON MD [Primary Care Provider] - Follow up/PCP as directed Additional Instructions: Return to the emergency department symptoms worsen. Take all your medications as prescribed. Call your oncologist and your photographer motion picture tomorrow morning on 08/10/2022, and obtain further instructions and a follow-up appointment.
[2022-08-09] MEDS ORDERED: solu-MEDROL 125 MG, Sterile H2O 10 ml 2 ML IV ONE ×2 (18:01)
[2022-08-09] MEDS ORDERED: Levofloxacin 500MG/100ML D5W 500 MG/100 ML BAG IV STA (18:01)
[2022-08-09] MEDS ORDERED: Sodium Chloride 0.9% 1000 ML 1,000 ML ONE ×2 (18:08→20:01)
[2022-08-09] MEDS ORDERED: HYDROCODONE-ACETAMIN 2.5-108/5 ML SOLUTION PO STA (18:08)
[2022-08-09] MEDS ORDERED: solu-MEDROL ONE (18:08)
[2022-08-09] MEDS ORDERED: Levofloxacin 500MG/100ML D5W 500 MG/100 ML BAG IV ONE (18:08)
[2022-08-09] MEDS ORDERED: Sterile H2O 10 ml IJ ONE (18:08)
[2022-08-09] MEDS ORDERED: Sodium Chloride 0.9% 1000 ML 1,000 ML IV SCH ×3 (18:15→22:26)
[2022-08-09] MEDS ORDERED: HYDROCODONE-ACETAMIN 2.5-108/5 ML SOLUTION ONE (18:18)
[2022-08-09 18:20] LABS: Absolute Neutrophil Ct (ANC) 9.96 x10^3/uL (1.4-6.9); Basophil (Absolute #) 0.06 x10^3/uL (0-0.4); Eosinophil (Absolute #) 0 x10^3/uL (0-0.5); Hematocrit 32.2 % (42-50); Lymphocyte (Absolute #) 0.21 x10^3/uL (1.0-4.6); Lymphocytes % 1.9 % (24.0-44.0); Mean Cell Volume 92.5 fL (78-100); Mean Corpuscular Hemoglobin 28.7 pg (26-32); Mean Corpuscular Hgb Concent. 31.1 g/dL (32-36); Mean Platelet Volume 8.4 fL (7.5-11.0); Monocyte (Absolute #) 0.42 x10^3/uL (0.0-1.3); Monocytes % 3.9 % (0.0-12.0); Neutrophil % 92.2 % (36.0-66.0); Platelet Count 425 x10^3/uL (150-450); Red Blood Count 3.48 x10^6/uL (4.1-5.6); White Blood Count 10.8 x10^3/uL (4.0-10.5)
[2022-08-09 18:44] LABS: ALKALINE PHOSPHATASE 479 U/L (38-126); ANION GAP 12.6 MEQ/L (5-15); BLOOD UREA NITROGEN 20 mg/dL (9-20); CHLORIDE 97 mmol/L (98-107); Calcium 8.8 mg/dL (8.4-10.2); Carbon Dioxide 27 mmol/L (22-30); Creatinine 1 1.07 mg/dL (0.66-1.25); EST GLOMERULAR FILTRATION RATE > 60.0 ML/MIN; Glucose 127 mg/dL (74-106); NT PRO BNP 1340 pg/mL (0-900); Potassium 4.7 mmol/L (3.5-5.1); SGOT/AST 32 U/L (17-59); SGPT/ALT 21 U/L (0-50); SODIUM 132 mmol/L (137-145)
[2022-08-09 18:45] LABS: Group A Strep NOT DETECTED (NEGATIVE)
[2022-08-09 18:57] LABS: INFLUENZA A NEGATIVE (NEGATIVE); INFLUENZA B NEGATIVE (NEGATIVE); RESPIRATORY SYNCTIAL VIRUS NEGATIVE (Negative); SARS-CoV-2 Xpert Express NEGATIVE (NEGATIVE)
[2022-08-09] MEDS ORDERED: Ativan 2 MG/1 ML VIAL IV ONE (19:14)
[2022-08-09] MEDS ORDERED: DUONEB 0.5-3 MG/3 ml Neb IH ONE ×2 (19:16→19:18)
[2022-08-09] MEDS ORDERED: Ativan 2 MG/1 ML VIAL ONE (19:22)
[2022-08-09] MEDS ORDERED: LOPRESSOR INJECTION IV ONE ×2 (19:58→20:01)
[2022-08-09 20:22] LABS: Slide Review 1 YES
[2022-08-09] MEDS ORDERED: Ativan 2 MG/1 ML VIAL IV PRN (22:26)
[2022-08-09] MEDS ORDERED: Zofran 4 MG/2 ML VIAL IV PRN (22:26)
[2022-08-09] MEDS ORDERED: TYLENOL 325 MG PO PRN (22:26)
[2022-08-09] MEDS ORDERED: PROVENTIL 2.5 MG/3 ML NEB IH PRN (23:41)
[2022-08-10 02:44] LABS: Absolute Neutrophil Ct (ANC) 4.35 x10^3/uL (1.4-6.9); Basophil (Absolute #) 0.02 x10^3/uL (0-0.4); Eosinophil (Absolute #) 0 x10^3/uL (0-0.5); Hematocrit 27.6 % (42-50); Hemoglobin 8.4 g/dL (12.5-18.0); Lymphocyte (Absolute #) 0.13 x10^3/uL (1.0-4.6); Lymphocytes % 2.8 % (24.0-44.0); Mean Cell Volume 94.2 fL (78-100); Mean Corpuscular Hemoglobin 28.7 pg (26-32); Mean Corpuscular Hgb Concent. 30.4 g/dL (32-36); Mean Platelet Volume 8.4 fL (7.5-11.0); Monocyte (Absolute #) 0.07 x10^3/uL (0.0-1.3); Monocytes % 1.5 % (0.0-12.0); Neutrophil % 93.8 % (36.0-66.0); Platelet Count 311 x10^3/uL (150-450); Red Blood Count 2.93 x10^6/uL (4.1-5.6); White Blood Count 4.6 x10^3/uL (4.0-10.5)
[2022-08-10 02:59] LABS: ALBUMIN 2.8 g/dL (3.5-5.0); ALKALINE PHOSPHATASE 306 U/L (38-126); BLOOD UREA NITROGEN 17 mg/dL (9-20); CHLORIDE 103 mmol/L (98-107); Calcium 7.5 mg/dL (8.4-10.2); Carbon Dioxide 25 mmol/L (22-30); Creatinine 1 0.83 mg/dL (0.66-1.25); EST GLOMERULAR FILTRATION RATE > 60.0 ML/MIN; Glucose 160 mg/dL (74-106); NT PRO BNP 1580 pg/mL (0-900); Potassium 4.2 mmol/L (3.5-5.1); SGOT/AST 25 U/L (17-59); SGPT/ALT 17 U/L (0-50); SODIUM 134 mmol/L (137-145); Total Protein 5.7 g/dL (6.3-8.2)
[2022-08-10 04:26] LABS: Slide Review 1 YES
[2022-08-10] MEDS ORDERED: Nicoderm CQ 21 MG TOP SCH (06:30)
[2022-08-10] MEDS ORDERED: MORPHINE SULFATE ER PO SCH (06:30)
[2022-08-10] MEDS ORDERED: Ms Contin 15 MG PO SCH (07:00)
--- NOTE | 2022-08-10 09:18 | XRAY ---
Exam: AP upright portable chest film from 08/09/2022. Comparison: AP upright portable chest film from 06/01/2022. Indication: Shortness of breath, cough, lung cancer. Findings: The lungs are again noted be hyperinflated. The heart size is normal. There is moderate tortuosity of the ascending and descending thoracic aorta. A left-sided daniel catheter is seen in place with the tip pointing inferiorly near the caval-atrial junction. There are new diffuse bilateral increased interstitial lung markings with only relative sparing of the left lower lung field. This represents an unfavorable change from 06/01/2022. Major differential diagnosis includes interstitial lung edema, inflammatory or infectious etiologies, and lymphangitic spread of metastasis. I do not see a dense superimposed airspace infiltrate. There is again noted to be minimal blunting of the right lateral costophrenic angle, likely due to pleural scarring/thickening. No pneumothorax or other evidence of pleural effusion is seen. The does appear to be a small convex pleural-based density within the lateral left midlung field which is new from 06/01/2022. A new pleural-based lesion in this projection needs to be considered. An old healed right clavicle fracture deformity is seen. Prior pathological fracture of the anterior right third rib is not well seen on this AP portable study. There is a compression deformity within the midthoracic spine seen through the mediastinum. Evidently, the patient has a pathological fracture at T7. Impression: 1. New abnormal bilateral increased interstitial lung markings, with only relative sparing of the left lower lung field. This represents an unfavorable change from 06/01/2022. See above. This report was called to the emergency department physician, Dr. Olivier, at approximately 9 AM on 08/10/2022. 2. There is a questionable small convex pleural-based lesion within the peripheral left midlung field which is not identified on the portable chest film from 06/01/2022. Correlate clinically. 3. Left-sided PICC line is seen in place with the tip pointing inferiorly at the caval-atrial junction. The lungs remain hyperinflated. There is some chronic pleural thickening/scarring blunting the right lateral costophrenic angle, stable. 4. Skeletal findings, as discussed above.
[2022-08-10 11:35] VITALS: BP 111/80; PULSE 92; O2SAT 97
[2022-08-10] MEDS ORDERED: ELIQUIS 2.5 MG TABLET PO SCH (13:00)
--- NOTE | 2022-08-10 13:15 | PCM.DS ---
Discharge Summary Date of Admission: 08/09/22 22:17 Admitting Physician: VENTURA PENNY DO Primary Care Provider: ELIUD DURON MD Allergies Allergies bee venom protein (honey bee) Allergy (Verified 08/09/22 22:48) Hospital Summary - Hospital Course Hospital Course: Patient is a 66 yo gentleman patient of Dr Eddie Key who presented to ER with tachycardia and fever. Patient is under the care of Dr Malik for lung cancer and he received chemotherapy yesterday . States he was given Rx for Levofloxin for productive cough but had not started it yet. He was given IV Levofloxacin in ER and hydration overnight, states he feels much better. He has not had any more fever. Patient is scheduled for Radiation treatment today at 2:45 at [facility].His sister is here to take him now. Patient has Hx Afib and has not restarted Eliquis since stopping this for his port placement. He is given a dose now before discharge. He will continue Levoflaxacin and has this Rx now at home. He will follow up with Dr Key,PCP [facility]. Dr Lentz is aware of his admit per patient's sister. - Vitals & Intake/Output Vital Signs: Vital Signs Temperature 98.0 F 08/10/22 11:34 Pulse Rate 92 H 08/10/22 11:34 Respiratory Rate 16 08/10/22 11:34 Blood Pressure 111/80 08/10/22 11:34 O2 Sat by Pulse Oximetry 97 08/10/22 11:34 Intake & Output: Intake & Output 08/08/22 08/09/22 08/10/22 08/11/22 11:59 11:59 11:59 11:59 Weight 51.1 kg - Lab Result Diagrams: 08/10/22 02:35 08/10/22 02:35 Lab Results-Last 24 Hrs: Lab Results-Last 24 Hours 08/09/22 08/09/22 08/09/22 Range/Units 18:01 18:10 18:10 WBC 10.8 H (4.0-10.5) x10^3/uL RBC 3.48 L (4.1-5.6) x10^6/uL Hgb 10.0 L (12.5-18.0) g/dL Hct 32.2 L (42-50) % MCV 92.5 (78-100) fL MCH 28.7 (26-32) pg MCHC 31.1 L (32-36) g/dL RDW 15.0 H (11.5-14.0) % Plt Count 425 (150-450) x10^3/uL MPV 8.4 (7.5-11.0) fL Gran % 92.2 H (36.0-66.0) % Immature Gran % (Auto) 1.4 H (0.00-0.4) % Nucleat RBC Rel Count 0.0 (0.00-0.1) % Eos # (Auto) 0 (0-0.5) x10^3/uL Immature Gran # (Auto) 0.15 H (0.00-0.03) x10^3u/L Absolute Lymphs (auto) 0.21 L (1.0-4.6) x10^3/uL Absolute Monos (auto) 0.42 (0.0-1.3) x10^3/uL Absolute Nucleated RBC 0.00 (0.00-0.01) x10^3u/L Lymphocytes % 1.9 L (24.0-44.0) % Monocytes % 3.9 (0.0-12.0) % Eosinophils % 0.0 (0.00-5.0) % Basophils % 0.6 (0.0-0.4) % Absolute Granulocytes 9.96 H (1.4-6.9) x10^3/uL Basophils # 0.06 (0-0.4) x10^3/uL Sodium 132 L (137-145) mmol/L Potassium 4.7 (3.5-5.1) mmol/L Chloride 97 L (98-107) mmol/L Carbon Dioxide 27 (22-30) mmol/L Anion Gap 12.6 (5-15) MEQ/L BUN 20 (9-20) mg/dL Creatinine 1.07 (0.66-1.25) mg/dL Estimated GFR > 60.0 ML/MIN Glucose 127 H (74-106) mg/dL Lactic Acid 2.2 H (0.4-2.0) Calcium 8.8 (8.4-10.2) mg/dL Total Bilirubin 0.70 (0.2-1.3) mg/dL AST 32 (17-59) U/L ALT 21 (0-50) U/L Alkaline Phosphatase 479 H (38-126) U/L Troponin I (0.000-0.034) ng/mL NT-Pro-B Natriuret Pep 1340 H (0-900) pg/mL Serum Total Protein 8.0 (6.3-8.2) g/dL Albumin 4.0 (3.5-5.0) g/dL Influenza Type A Ag (NEGATIVE) Influenza Type B Ag (NEGATIVE) RSV (PCR) (Negative) SARS-CoV-2 (PCR) (NEGATIVE) Group A Strep Antibody (NEGATIVE) Slides for Path Review YES 08/09/22 08/09/22 08/09/22 Range/Units 18:10 18:15 20:20 WBC (4.0-10.5) x10^3/uL RBC (4.1-5.6) x10^6/uL Hgb (12.5-18.0) g/dL Hct (42-50) % MCV (78-100) fL MCH (26-32) pg MCHC (32-36) g/dL RDW (11.5-14.0) % Plt Count (150-450) x10^3/uL MPV (7.5-11.0) fL Gran % (36.0-66.0) % Immature Gran % (Auto) (0.00-0.4) % Nucleat RBC Rel Count (0.00-0.1) % Eos # (Auto) (0-0.5) x10^3/uL Immature Gran # (Auto) (0.00-0.03) x10^3u/L Absolute Lymphs (auto) (1.0-4.6) x10^3/uL Absolute Monos (auto) (0.0-1.3) x10^3/uL Absolute Nucleated RBC (0.00-0.01) x10^3u/L Lymphocytes % (24.0-44.0) % Monocytes % (0.0-12.0) % Eosinophils % (0.00-5.0) % Basophils % (0.0-0.4) % Absolute Granulocytes (1.4-6.9) x10^3/uL Basophils # (0-0.4) x10^3/uL Sodium (137-145) mmol/L Potassium (3.5-5.1) mmol/L Chloride (98-107) mmol/L Carbon Dioxide (22-30) mmol/L Anion Gap (5-15) MEQ/L BUN (9-20) mg/dL Creatinine (0.66-1.25) mg/dL Estimated GFR ML/MIN Glucose (74-106) mg/dL Lactic Acid 1.4 (0.4-2.0) Calcium (8.4-10.2) mg/dL Total Bilirubin (0.2-1.3) mg/dL AST (17-59) U/L ALT (0-50) U/L Alkaline Phosphatase (38-126) U/L Troponin I 0.029 (0.000-0.034) ng/mL NT-Pro-B Natriuret Pep (0-900) pg/mL Serum Total Protein (6.3-8.2) g/dL Albumin (3.5-5.0) g/dL Influenza Type A Ag NEGATIVE (NEGATIVE) Influenza Type B Ag NEGATIVE (NEGATIVE) RSV (PCR) NEGATIVE (Negative) SARS-CoV-2 (PCR) NEGATIVE (NEGATIVE) Group A Strep Antibody NOT DETECTED (NEGATIVE) Slides for Path Review 08/09/22 08/10/22 08/10/22 Range/Units 22:05 02:35 02:35 WBC 4.6 (4.0-10.5) x10^3/uL RBC 2.93 L (4.1-5.6) x10^6/uL Hgb 8.4 L (12.5-18.0) g/dL Hct 27.6 L (42-50) % MCV 94.2 (78-100) fL MCH 28.7 (26-32) pg MCHC 30.4 L (32-36) g/dL RDW 15.0 H (11.5-14.0) % Plt Count 311 (150-450) x10^3/uL MPV 8.4 (7.5-11.0) fL Gran % 93.8 H (36.0-66.0) % Immature Gran % (Auto) 1.5 H (0.00-0.4) % Nucleat RBC Rel Count 0.0 (0.00-0.1) % Eos # (Auto) 0 (0-0.5) x10^3/uL Immature Gran # (Auto) 0.07 H (0.00-0.03) x10^3u/L Absolute Lymphs (auto) 0.13 L (1.0-4.6) x10^3/uL Absolute Monos (auto) 0.07 (0.0-1.3) x10^3/uL Absolute Nucleated RBC 0.00 (0.00-0.01) x10^3u/L Lymphocytes % 2.8 L (24.0-44.0) % Monocytes % 1.5 (0.0-12.0) % Eosinophils % 0.0 (0.00-5.0) % Basophils % 0.4 (0.0-0.4) % Absolute Granulocytes 4.35 (1.4-6.9) x10^3/uL Basophils # 0.02 (0-0.4) x10^3/uL Sodium (137-145) mmol/L Potassium (3.5-5.1) mmol/L Chloride (98-107) mmol/L Carbon Dioxide (22-30) mmol/L Anion Gap (5-15) MEQ/L BUN (9-20) mg/dL Creatinine (0.66-1.25) mg/dL Estimated GFR ML/MIN Glucose (74-106) mg/dL Lactic Acid (0.4-2.0) Calcium (8.4-10.2) mg/dL Total Bilirubin (0.2-1.3) mg/dL AST (17-59) U/L ALT (0-50) U/L Alkaline Phosphatase (38-126) U/L Troponin I 0.029 0.015 (0.000-0.034) ng/mL NT-Pro-B Natriuret Pep (0-900) pg/mL Serum Total Protein (6.3-8.2) g/dL Albumin (3.5-5.0) g/dL Influenza Type A Ag (NEGATIVE) Influenza Type B Ag (NEGATIVE) RSV (PCR) (Negative) SARS-CoV-2 (PCR) (NEGATIVE) Group A Strep Antibody (NEGATIVE) Slides for Path Review YES 08/10/22 Range/Units 02:35 WBC (4.0-10.5) x10^3/uL RBC (4.1-5.6) x10^6/uL Hgb (12.5-18.0) g/dL Hct (42-50) % MCV (78-100) fL MCH (26-32) pg MCHC (32-36) g/dL RDW (11.5-14.0) % Plt Count (150-450) x10^3/uL MPV (7.5-11.0) fL Gran % (36.0-66.0) % Immature Gran % (Auto) (0.00-0.4) % Nucleat RBC Rel Count (0.00-0.1) % Eos # (Auto) (0-0.5) x10^3/uL Immature Gran # (Auto) (0.00-0.03) x10^3u/L Absolute Lymphs (auto) (1.0-4.6) x10^3/uL Absolute Monos (auto) (0.0-1.3) x10^3/uL Absolute Nucleated RBC (0.00-0.01) x10^3u/L Lymphocytes % (24.0-44.0) % Monocytes % (0.0-12.0) % Eosinophils % (0.00-5.0) % Basophils % (0.0-0.4) % Absolute Granulocytes (1.4-6.9) x10^3/uL Basophils # (0-0.4) x10^3/uL Sodium 134 L (137-145) mmol/L Potassium 4.2 (3.5-5.1) mmol/L Chloride 103 (98-107) mmol/L Carbon Dioxide 25 (22-30) mmol/L Anion Gap 10.0 (5-15) MEQ/L BUN 17 (9-20) mg/dL Creatinine 0.83 (0.66-1.25) mg/dL Estimated GFR > 60.0 ML/MIN Glucose 160 H (74-106) mg/dL Lactic Acid (0.4-2.0) Calcium 7.5 L (8.4-10.2) mg/dL Total Bilirubin 0.40 (0.2-1.3) mg/dL AST 25 (17-59) U/L ALT 17 (0-50) U/L Alkaline Phosphatase 306 H (38-126) U/L Troponin I (0.000-0.034) ng/mL NT-Pro-B Natriuret Pep 1580 H (0-900) pg/mL Serum Total Protein 5.7 L (6.3-8.2) g/dL Albumin 2.8 L (3.5-5.0) g/dL Influenza Type A Ag (NEGATIVE) Influenza Type B Ag (NEGATIVE) RSV (PCR) (Negative) SARS-CoV-2 (PCR) (NEGATIVE) Group A Strep Antibody (NEGATIVE) Slides for Path Review - Radiology Exams Ordered Rad Exams-Entire Visit: Radiology Procedures Category Date Time Status CHEST 1 VIEW (PORTABLE) Routine Exams 08/09/22 18:12 Completed - Procedures and Test Procedures and Tests throughout Hospitalization: Therapy Orders & Screens 08/09/22 19:19 Respiratory Therapy Assessment DAILY Comment: 08/09/22 22:26 EKG DAILY Comment: Oxygen Nasal Cannula 4 lpm Comment: Respiratory Therapy Consult ROUTINE Comment: Reason For Exam: 08/09/22 22:47 OT Screen per Nursing Assess ONCE Comment: Protocol Order Physician Instructions: Greater than 3 points order OT Admission Screening Reason For Exam: Triggered on Admission Diagnosis: FEVER Open Wound/Cellutlitis/Pressure Ulcers: No Acute Fx/ORIF/Change in wt bearing status: No Severe MUSCULOSKELETAL pain: Yes: cancer in back and ribs ADL Dysfunction: No Acute CVA w/Hemiparesis/Hemiplegia: No Decreased Functional Mobility/Strength: No Sprain/Strain: No Acute Post-op Mobility Dysfunction: No Total Points: 5 PT Screen per Nursing Assess ONCE Comment: Protocol Order Physician Instructions: Greater than 3 points order PT Admission Screenin Reason For Exam: Triggered on Admission Diagnosis: FEVER Open Wound/Cellutlitis/Pressure Ulcers: No Acute Fx/ORIF/Change in wt bearing status: No Severe MUSCULOSKELETAL pain: Yes: cancer in back and ribs ADL Dysfunction: No Acute CVA w/Hemiparesis/Hemiplegia: No Decreased Functional Mobility/Strength: No Sprain/Strain: No Acute Post-op Mobility Dysfunction: No Total Points: 5 RT Screen per Nursing Assess ONCE Comment: Protocol Order Physician Instructions: Greater than 3 points order RT Admission Screen Reason For Exam: Triggered on Admission Diagnosis: FEVER Diagnosis: FEVER Pneumonia: No Home O2: Yes: 3L Asthma: No CHF: No Home CPAP/BIPAP: No Home Nebs/MDI: Yes Total Points: 10 Smoking Cessation Education ONCE Comment: Diagnosis: FEVER Smoking Status: Current every day smoker How long have you smoked: over 30 yr Have you smoked in the past 12 months: Yes Approximately how many cigarettes per day: 20 Do you dip or chew tobacco: No Discharge Exam General Appearance: no apparent distress Neurologic Exam: alert, oriented x 3, cooperative, normal mood/affect Eye Exam: eyes nml inspection Ears, Nose, Throat Exam: normal ENT inspection Neck Exam: normal inspection Respiratory Exam: diminished breath sounds (no wheeze or ronchi or rales) Cardiovascular Exam: regular rate/rhythm (rate 90,regular) Gastrointestinal/Abdomen Exam: soft (nontender,BS present) Male Genitalia Exam: deferred Rectal Exam: deferred Back Exam: normal inspection Extremity Exam: normal inspection Skin Exam: normal color, warm, dry Final Diagnosis/Problem List - Final Discharge Diagnosis/Problem (1) COPD exacerbation Current Visit: No Status: Acute Assessment & Plan: improved with IV Levofloxacin after ER dose-will continue on orals,has RX Code(s): J44.1 - CHRONIC OBSTRUCTIVE PULMONARY DISEASE W (ACUTE) EXACERBATION (2) Tachycardia Current Visit: Yes Status: Acute Assessment & Plan: improved to rate 90 Code(s): R00.0 - TACHYCARDIA, UNSPECIFIED (3) Paroxysmal A-fib Current Visit: Yes Status: Chronic Assessment & Plan: restarted Eliquis 5mg bid - 1 dose now prior to discharge Code(s): I48.0 - PAROXYSMAL ATRIAL FIBRILLATION (4) Volume depletion Current Visit: Yes Status: Resolved Assessment & Plan: IV hydration overnight Code(s): E86.9 - VOLUME DEPLETION, UNSPECIFIED - Discharge Disposition: HOME HEALTH SERVICE Condition: Fair Prescriptions: New Apixaban [Eliquis 5 mg Tablet] 5 mg PO BID #60 tablet Continue Albuterol Common Canister [Ventolin Common Canister] 2 puff PO DAILY PRN PRN Reason: Shortness Of Breath Albuterol 2.5 mg/3 ml Neb [Proventil 2.5 mg/3 ml Neb] 2.5 mg IH Q6H #25 unit Amitriptyline HCl 25 mg [Amitriptyline 25 mg Tablet] 25 mg PO DAILY Morphine Sulfate [Morphine Sulfate ER] 30 mg PO Q12H Prochlorperazine Maleate 5 mg* [Compazine 5 MG] 10 mg PO UD Levofloxacin [Levofloxacin 500 MG Tablet] 500 mg PO DAILY Hydrocodone/Acetaminophen [Hydrocodone-Acetamin 5-325 mg] 1 tab PO Q4H PRN PRN Reason: Pain Additional Instructions: REFERRAL WAS SENT TO [facility]. THEY WILL CALL YOU TO SET UP A TIME TO SEE YOU. THEIR PHONE NUMBER IS [phone] Follow up with: ELIUD DURON MD [Primary Care Provider] -
[2022-08-10] MEDS ORDERED: Levofloxacin 500MG/100ML D5W 500 MG/100 ML BAG IV SCH (22:00)
== END 2022-08-10 13:55 | disposition home health service (06) ==
LOC: ED 17:46 → MED SURG 22:17
PROVIDERS: ADMIT Family Medicine; ATTEND Family Medicine
DX: J44.1 Chronic obstructive pulmonary disease with (acute) exacerbation (principal); R00.0 Tachycardia, unspecified; I48.0 Paroxysmal atrial fibrillation; E86.9 Volume depletion, unspecified; C34.90 Malignant neoplasm of unspecified part of unspecified bronchus or lung; F10.20 Alcohol dependence, uncomplicated; F41.9 Anxiety disorder, unspecified; R50.9 Fever, unspecified; Z79.899 Other long term (current) drug therapy; Z20.828 Contact with and (suspected) exposure to other viral communicable diseases; Z72.0 Tobacco use
CPT/HCPCS: 0241U; 36000; 36415; 71045; 80053; 83605; 83880; 84484; 85025; 87040; 87651; 93005; 93041; 94640; 94760; 96365; 96374; 96375; 99285; G0378; J1956; J2060; J2930; A9270-GY

== ENCOUNTER 2022-09-08 20:45 | Observation (INO) | payer MEDICARE ==
[2022-09-08] MEDS ORDERED: PROTONIX 40 MG IV IV ONE ×2 (20:48→21:20)
[2022-09-08] MEDS ORDERED: Sodium Chloride 0.9% 1000 ML 1,000 ML IV STA (20:48)
[2022-09-08 21:12] LABS: Absolute Neutrophil Ct (ANC) 5.27 x10^3/uL (1.4-6.9); Basophil (Absolute #) 0 x10^3/uL (0-0.4); Eosinophil (Absolute #) 0 x10^3/uL (0-0.5); Hematocrit 23.5 % (42-50); Lymphocyte (Absolute #) 0.26 x10^3/uL (1.0-4.6); Lymphocytes % 4.4 % (24.0-44.0); Mean Cell Volume 96.3 fL (78-100); Mean Corpuscular Hemoglobin 28.3 pg (26-32); Mean Corpuscular Hgb Concent. 29.4 g/dL (32-36); Monocyte (Absolute #) 0.35 x10^3/uL (0.0-1.3); Monocytes % 5.9 % (0.0-12.0); Red Blood Count 2.44 x10^6/uL (4.1-5.6); Red Cell Distribution Width 15.9 % (11.5-14.0); White Blood Count 5.9 x10^3/uL (4.0-10.5)
--- NOTE | 2022-09-08 21:14 | ERPHSYRPT ---
- History of Present Illness Time Seen by Provider: 09/08/22 21:11 Historian: patient, EMS Exam Limitations: no limitations Patient Subjective Stated Complaint: EMS states "He has black tarry stool." Triage Nursing Assessment: pt came into the er via ambulance; pt is axo x3; c/o black tarry stools; pt states 9/10 all over pain; abd flat, soft, nontender; hyperactive bowel sounds in all quads; skin PDW; vitals wnl Physician History: Patient is 66-year-old male with significant past medical history of metastatic lung cancer started having a dark tarry stool today. Patient is feeling very weak and lethargic. Patient has a recurrent upper GI bleed and recently patient was has admitted in the hospital and was given 2 units of blood and at that time his hemoglobin came up to 10.1 from 8.4. Patient is also feeling abdominal cramps and has large amount of dark tarry stool. Timing/Duration: today Activities at Onset: none Quality: aching, cramping Abdominal Pain Onset Location: epigastric Pain Radiation: no radiation Severity of Pain-Max: moderate Severity of Pain-Current: mild Modifying Factors: Improves With: nothing Associated Symptoms: diaphoresis, fatigue, loss of appetite, nausea, weakness Previous symptoms: same symptoms as today Allergies/Adverse Reactions: bee venom protein (honey bee) Allergy (Verified 08/09/22 22:48) Home Medications: Albuterol Common Canister [Ventolin Common Canister] 2 puff PO DAILY PRN 06/09/20 [History] Amitriptyline HCl 25 mg [Amitriptyline 25 mg Tablet] 25 mg PO DAILY 08/09/22 [History] Hydrocodone/Acetaminophen [Hydrocodone-Acetamin 5-325 mg] 1 tab PO Q4H PRN 08/09/22 [History] Levofloxacin [Levofloxacin 500 MG Tablet] 500 mg PO DAILY 08/09/22 [History] Morphine Sulfate [Morphine Sulfate ER] 30 mg PO Q12H 08/09/22 [History] Prochlorperazine Maleate 5 mg* [Compazine 5 MG] 10 mg PO UD 08/09/22 [History] Hx Tetanus, Diphtheria Vaccination/Date Given: No (unsure) Hx Influenza Vaccination/Date Given: No Hx Pneumococcal Vaccination/Date Given: Yes Travel Risk - International Travel Have you traveled outside of the country in past 3 weeks: No - Coronavirus Screening Are you exhibiting any of the following symptoms?: No Close contact with a COVID-19 positive Pt in past 14-21 Days: No - Vaccine Status Have you recieved a Covid-19 vaccination: Yes Trimmer Buffing Wheel: Moderna - Vaccination Dates Date of 2cond Vaccination (if applicable): UNK Dates if Unknown: UNK - Review of Systems Constitutional: Lethargy, Malaise, Weakness, No Fever, No Chills Eyes: No Symptoms Ears, Nose, & Throat: No Symptoms Respiratory: No Cough, No Dyspnea Cardiac: No Chest Pain, No Edema, No Syncope Abdominal/Gastrointestinal: Abdominal Pain, Nausea, Hematochezia, Melena, No Vomiting, No Diarrhea Genitourinary Symptoms: No Dysuria Musculoskeletal: No Back Pain, No Neck Pain Skin: No Rash Neurological: No Dizziness, No Focal Weakness, No Sensory Changes Psychological: No Symptoms Endocrine: No Symptoms All Other Systems: Reviewed and Negative - Past Medical History Pertinent Past Medical History: Yes Neurological History: Stroke ENT History: No Pertinent History Cardiac History: Other Respiratory History: COPD, Lung Cancer Endocrine Medical History: No Pertinent History Musculoskeletal History: No Pertinent History GI Medical History: No Pertinent History History: No Pertinent History Psycho-Social History: Anxiety, Panic Disorder Male Reproductive Disorders: No Pertinent History Other Medical History: shoulder; drinks alcohol but has decreased use. stage IV lung cancer - Past Surgical History Past Surgical History: Yes Neuro Surgical History: No Pertinent History Cardiac: No Pertinent History Respiratory: No Pertinent History Gastrointestinal: Hernia Repair Genitourinary: No Pertinent History Musculoskeletal: Orthopedic Surgery Male Surgical History: No Pertinent History Other Surgical History: TONSILS. EXPLORATORY ABD SURGURY, shoulder surgery , knee , both hands - Social History Smoking Status: Current every day smoker How long have you smoked: over 30 yr Exposure to second hand smoke: Yes Drug Use: none Patient Lives Alone: Yes Significant Family History: no pertinent family hx - Nursing Vital Signs Nursing Vital Signs: Initial Vital Signs Temperature 97.6 F 09/08/22 20:47 Pulse Rate 62 09/08/22 20:47 Respiratory Rate 16 09/08/22 20:47 Blood Pressure 113/90 09/08/22 20:47 O2 Sat by Pulse Oximetry 95 09/08/22 20:47 Pain Scale Pain Intensity 9 - Physical Exam General Appearance: mild distress, alert Eye Exam: PERRL/EOMI, eyes nml inspection Ears, Nose, Throat Exam: normal ENT inspection, pharynx normal, moist mucous membranes Neck Exam: normal inspection, non-tender, supple, full range of motion Respiratory Exam: diminished breath sounds, crackles/rales, rhonchi, wheezing, No respiratory distress Cardiovascular Exam: regular rate/rhythm, normal heart sounds Gastrointestinal/Abdomen Exam: soft, tenderness (epigastric area), No mass Back Exam: normal inspection, normal range of motion, No CVA tenderness, No vertebral tenderness Extremity Exam: normal inspection, normal range of motion, pelvis stable Neurologic Exam: alert, oriented x 3, cooperative, normal mood/affect, nml cerebellar function, sensation nml, No motor deficits Skin Exam: normal color, warm, dry SpO2: 95 - Course Nursing assessment & vital signs reviewed: Yes Ordered Tests: Active Orders 24 hr Category Date Time Status CBC W DIFF Stat Lab 09/08/22 21:07 Completed CMP Stat Lab 09/08/22 21:07 Received Transfer Order Routine Transfer 09/08/22 Ordered Medication Summary Generic Name Dose Route Start Last Admin Trade Name Freq PRN Reason Stop Dose Admin Sodium Chloride 1,000 mls @ 999 mls/hr 09/08/22 20:48 09/08/22 21:23 Sodium Chloride 0.9% 1000 Ml IV 09/08/22 21:48 999 mls/hr .[id number] STA Administration Discontinued Medications Generic Name Dose Route Start Last Admin Trade Name Freq PRN Reason Stop Dose Admin Sodium Chloride Confirm 09/08/22 21:20 Sodium Chloride 0.9% 1000 Ml Administered 09/08/22 21:21 Dose 1,000 mls @ ud .ROUTE .STK-MED ONE Pantoprazole Sodium 40 mg 09/08/22 20:48 09/08/22 21:23 Pantoprazole 40 Mg Vial IV 09/08/22 20:49 40 mg STAT ONE Administration Pantoprazole Sodium Confirm 09/08/22 21:20 Pantoprazole 40 Mg Vial Administered 09/08/22 21:21 Dose 40 mg IV .STK-MED ONE Lab/Rad Data: Laboratory Result Diagrams 09/08/22 21:07 Laboratory Results 09/08/22 Range/Units 21:07 WBC 5.9 (4.0-10.5) x10^3/uL RBC 2.44 L (4.1-5.6) x10^6/uL Hgb 6.9 L* (12.5-18.0) g/dL Hct 23.5 L (42-50) % MCV 96.3 (78-100) fL MCH 28.3 (26-32) pg MCHC 29.4 L (32-36) g/dL RDW 15.9 H (11.5-14.0) % Plt Count 7 L* (150-450) x10^3/uL Gran % 89.0 H (36.0-66.0) % Immature Gran % (Auto) 0.7 H (0.00-0.4) % Nucleat RBC Rel Count 0.0 (0.00-0.1) % Eos # (Auto) 0 (0-0.5) x10^3/uL Immature Gran # (Auto) 0.04 H (0.00-0.03) x10^3u/L Absolute Lymphs (auto) 0.26 L (1.0-4.6) x10^3/uL Absolute Monos (auto) 0.35 (0.0-1.3) x10^3/uL Absolute Nucleated RBC 0.00 (0.00-0.01) x10^3u/L Lymphocytes % 4.4 L (24.0-44.0) % Monocytes % 5.9 (0.0-12.0) % Eosinophils % 0.0 (0.00-5.0) % Basophils % 0.0 (0.0-0.4) % Absolute Granulocytes 5.27 (1.4-6.9) x10^3/uL Basophils # 0 (0-0.4) x10^3/uL - Progress Progress: unchanged Discussed with : Maribell Will see patient in: hospital (observation) Counseled pt/family regarding: lab results, diagnosis, need for follow-up - Departure Departure Disposition: Observation Clinical Impression: GI bleeding Qualifiers: GI bleed type/associated pathology: melena Qualified Code(s): K92.1 - Melena Anemia Qualifiers: Anemia type: iron deficiency Iron deficiency 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
[2022-09-08] MEDS ORDERED: Sodium Chloride 0.9% 1000 ML 1,000 ML ONE (21:20)
[2022-09-08 21:22] LABS: Hemoglobin 6.9 g/dL (12.5-18.0)
[2022-09-08 21:23] LABS: Platelet Count 7 x10^3/uL (150-450)
[2022-09-08 22:59] LABS: INFLUENZA A NEGATIVE (NEGATIVE); INFLUENZA B NEGATIVE (NEGATIVE); RESPIRATORY SYNCTIAL VIRUS NEGATIVE (Negative); SARS-CoV-2 Xpert Express NEGATIVE (NEGATIVE)
[2022-09-08 23:02] LABS: Slide Review 1 YES
[2022-09-09 00:23] LABS: ALBUMIN 2.4 g/dL (3.5-5.0); ALKALINE PHOSPHATASE 364 U/L (38-126); ANION GAP 7.8 MEQ/L (5-15); BLOOD UREA NITROGEN 37 mg/dL (9-20); CHLORIDE 100 mmol/L (98-107); Calcium 6.8 mg/dL (8.4-10.2); Carbon Dioxide 26 mmol/L (22-30); Creatinine 1 0.75 mg/dL (0.66-1.25); EST GLOMERULAR FILTRATION RATE > 60.0 ML/MIN; Potassium 3.7 mmol/L (3.5-5.1); SGOT/AST 23 U/L (17-59); SGPT/ALT 25 U/L (0-50); SODIUM 130 mmol/L (137-145); Total Protein 5.4 g/dL (6.3-8.2)
[2022-09-09 00:26] LABS: Glucose 111 mg/dL (74-106)
[2022-09-09] MEDS ORDERED: Nicoderm CQ 21 MG TOP SCH ×2 (00:45→22:00)
[2022-09-09 01:47] LABS: ABO TYPING O; Antibody Screen NEGATIVE (NEGATIVE); RH TYPING POSITIVE
[2022-09-09 01:52] LABS: CROSS MATCH (PRBC) COMPATIBLE (COMPATIBLE)
[2022-09-09] MEDS: Sodium Chloride 0.9% 1000 ML 1,000 ML IV SCH ×2 (02:18→16:48)
[2022-09-09] MEDS: Pepcid 20 MG VIAL IV SCH ×3 (02:59→21:57)
[2022-09-09] MEDS: Lasix 40 MG/4 ML IV SCH ×2 (04:22→06:52)
[2022-09-09] MEDS: MORPHINE SULFATE 4 MG INJ IV PRN ×2 (04:36→08:36)
[2022-09-09] MEDS: Advair Hfa 115/21 Common canister IH SCH ×2 (05:43→18:45)
[2022-09-09] MEDS: DUONEB 0.5-3 MG/3 ml Neb IH SCH ×4 (05:43→18:45)
[2022-09-09] MEDS: VENTOLIN COMMON CANISTER IH PRN ×2 (07:15→21:59)
[2022-09-09] MEDS ORDERED: PROVENTIL 2.5 MG/3 ML NEB IH ONE (08:00)
[2022-09-09] MEDS ORDERED: PROVENTIL 2.5 MG/3 ML NEB IH PRN (08:01)
[2022-09-09] MEDS ORDERED: FLUZONE HIGH-DOSE QUAD 2022-23 IM ONE (10:00)
[2022-09-09] MEDS ORDERED: Cardizem IV 50 MG/10 ML IV ONE (10:08)
[2022-09-09 10:49] LABS: Absolute Neutrophil Ct (ANC) 6.23 x10^3/uL (1.4-6.9); Basophil (Absolute #) 0.01 x10^3/uL (0-0.4); Eosinophil % 0.1 % (0.00-5.0); Eosinophil (Absolute #) 0.01 x10^3/uL (0-0.5); Hematocrit 32.6 % (42-50); Hemoglobin 10.7 g/dL (12.5-18.0); Lymphocyte (Absolute #) 0.13 x10^3/uL (1.0-4.6); Lymphocytes % 1.9 % (24.0-44.0); Mean Cell Volume 81.5 fL (78-100); Mean Corpuscular Hemoglobin 26.8 pg (26-32); Mean Corpuscular Hgb Concent. 32.8 g/dL (32-36); Monocyte (Absolute #) 0.29 x10^3/uL (0.0-1.3); Monocytes % 4.3 % (0.0-12.0); Neutrophil % 93.2 % (36.0-66.0); Red Cell Distribution Width 19.9 % (11.5-14.0); White Blood Count 6.7 x10^3/uL (4.0-10.5)
[2022-09-09] MEDS ORDERED: Cardizem CD PO SCH (11:00)
[2022-09-09 11:13] LABS: Platelet Count 8 x10^3/uL (150-450)
[2022-09-09 11:21] LABS: ANION GAP 11.2 MEQ/L (5-15); BLOOD UREA NITROGEN 34 mg/dL (9-20); CHLORIDE 99 mmol/L (98-107); Carbon Dioxide 26 mmol/L (22-30); Creatinine 1 0.85 mg/dL (0.66-1.25); EST GLOMERULAR FILTRATION RATE > 60.0 ML/MIN; Glucose 119 mg/dL (74-106); PREALBUMIN 5.51 mg/dL (17.6-36.0); Potassium 3.4 mmol/L (3.5-5.1); SODIUM 133 mmol/L (137-145)
[2022-09-09] MEDS: PROTONIX 40 MG IV IV SCH (11:49)
[2022-09-09] MEDS ORDERED: Compazine 5 MG PO PRN (12:25)
[2022-09-09] MEDS ORDERED: NON-FORMULARY ITEM (Morphine Sulfate [Morphine Sulfate Er] 30 MG Tablet.Er) PO SCH (12:30)
[2022-09-09] MEDS: Ms Contin 15 MG PO SCH ×2 (13:06→21:57)
[2022-09-09] MEDS: Maxzide-25MG Tablet PO SCH (13:06)
[2022-09-09] MEDS: Effexor XR 75 MG PO SCH (13:06)
[2022-09-09 14:14] LABS: Slide Review 1 YES
--- NOTE | 2022-09-09 17:36 | PCM.HP ---
History of Present Illness - Chief Complaint Chief Complaint: dark mary stool today History of Present Illness: is a 66 year old male.with significant past medical history of metastatic lung cancer started having a dark tarry stool today. Patient is feeling very weak and lethargic. Patient has a recurrent upper GI bleed and recently patient was has admitted in the hospital and was given 2 units of blood and at that time his hemoglobin came up to 10.1 from 8.4. Patient is also feeling abdominal cramps and has large amount of dark tarry stool. Timing/Duration: today Activities at Onset: none Quality: aching, cramping Abdominal Pain Onset Location: epigastric Pain Radiation: no radiation Severity of Pain-Max: moderate Severity of Pain-Current: mild Modifying Factors: Improves With: nothing Associated Symptoms: diaphoresis, fatigue, loss of appetite, nausea, weakness Previous symptoms: same symptoms as today - Review of Systems Constitutional: Lethargy, Malaise, Weakness, No Fever, No Chills Eyes: No Symptoms Ears, Nose, & Throat: No Symptoms Respiratory: No Cough, No Short Of Breath Cardiac: No Chest Pain, No Edema, No Syncope Abdominal/Gastrointestinal: Hematochezia, No Abdominal Pain, No Nausea, No Vomiting, No Diarrhea Genitourinary Symptoms: No Dysuria Musculoskeletal: No Back Pain, No Neck Pain Skin: No Rash Neurological: No Dizziness, No Focal Weakness, No Sensory Changes Psychological: No Symptoms Endocrine: No Symptoms Hematologic/Lymphatic: No Symptoms Immunological/Allergic: No Symptoms Medications & Allergies Home Medications: Home Medication List Albuterol Common Canister [Ventolin Common Canister] 2 puff PO DAILY PRN 06/09/20 [History Confirmed 09/08/22] Albuterol 2.5 mg/3 ml Neb [Proventil 2.5 mg/3 ml Neb] 2.5 mg IH Q6H #25 unit 05/05/22 [Rx Confirmed 09/08/22] Hydrocodone/Acetaminophen [Hydrocodone-Acetamin 5-325 mg] 1 tab PO Q4H PRN 08/09/22 [History Confirmed 09/08/22] Morphine Sulfate [Morphine Sulfate ER] 15 mg PO Q12H 08/09/22 [History Confirmed 09/08/22] Prochlorperazine Maleate 5 mg* [Compazine 5 MG] 10 mg PO BID PRN 08/09/22 [History Confirmed 09/08/22] Apixaban [Eliquis 5 mg Tablet] 5 mg PO BID #60 tablet 08/10/22 [Rx Confirmed 09/08/22] Fluticasone/Umeclidin/Vilanter [Trelegy Ellipta 100-62.5-25] 1 puff IH DAILY 09/08/22 [History Confirmed 09/08/22] Triamterene/Hydrochlorothiazid [Triamterene-Hctz 37.5-25 mg Tb] 1 each PO DAILY 09/08/22 [History Confirmed 09/08/22] Venlafaxine HCl [Venlafaxine HCl ER] 75 mg PO DAILY 09/08/22 [History Confirmed 09/09/22] Allergies/Adverse Reactions: Allergies Allergy/AdvReac Type Severity Reaction Status Date / Time bee venom protein (honey bee) Allergy Verified 08/09/22 22:48 - Past Medical History Past Medical History: Yes Neurological History: Stroke ENT History: No Pertinent History Cardiac History: Other Respiratory History: COPD, Lung Cancer Endocrine Medical History: No Pertinent History Musculoskelatal History: No Pertinent History GI Medical History: No Pertinent History History: No Pertinent History Pyscho-Social History: Anxiety, Panic Disorder Male Reproductive Disorders: No Pertinent History Comment: surgery x 3 to right shoulder; drinks alcohol but has decreased use. stage IV lung cancer - Past Surgical History Past Surgical History: Yes Neuro Surgical History: No Pertinent History Cardiac History: No Pertinent History Respiratory Surgery: No Pertinent History GI Surgical History: Hernia Repair Genitourinary Surgical Hx: No Pertinent History Musculskeletal Surgical Hx: Orthopedic Surgery Male Surgical History: No Pertinent History Other Surgical History: TONSILS. EXPLORATORY ABD SURGURY, shoulder surgery , knee , both hands - Social History Smoking Status: Current every day smoker How long have you smoked: 50 years Exposure to second hand smoke: Yes Alcohol: None Drug Use: none Significant Family History: no pertinent family hx - Physical Exam Vital Signs: Vital Signs - 24 hr Temp Pulse Resp BP Pulse Ox 09/09/22 16:00 98.9 F 57 L 16 131/79 90 L 09/09/22 14:45 94 H 18 95 09/09/22 11:21 80 18 97 09/09/22 08:01 96 H 18 95 09/09/22 07:15 99 H 18 96 09/09/22 05:49 99 H 18 96 09/09/22 04:00 97.9 F 98 H 16 101/56 92 L 09/09/22 02:55 99 09/08/22 23:47 97.8 F 91 H 18 99/75 99 09/08/22 23:00 97 H 124/92 99 09/08/22 22:01 73 118/94 96 09/08/22 21:39 95 09/08/22 20:47 97.6 F 62 16 113/90 95 General Appearance: no apparent distress, alert Neurologic Exam: alert, oriented x 3, cooperative, normal mood/affect, nml cerebellar function, nml station & gait, sensation nml, No motor deficits Eye Exam: PERRL/EOMI, eyes nml inspection Ears, Nose, Throat Exam: normal ENT inspection, TMs normal, pharynx normal, moist mucous membranes Neck Exam: normal inspection, non-tender, supple, full range of motion Respiratory Exam: diminished breath sounds, crackles/rales, rhonchi, wheezing, No respiratory distress Cardiovascular Exam: regular rate/rhythm, normal heart sounds, normal peripheral pulses Gastrointestinal/Abdomen Exam: soft, normal bowel sounds, No tenderness, No mass Back Exam: normal inspection, normal range of motion, No CVA tenderness, No vertebral tenderness Extremity Exam: normal inspection, normal range of motion, pelvis stable Skin Exam: normal color, warm, dry, No rash Wound Assessment: Skin/Wound Assessment Wound/Incision Assessment Start: 09/09/22 00:31 Text: Status: Active Freq: Q6H Protocol: Document 09/09/22 12:00 LITOBOSSMAN (Rec: 09/09/22 12:40 [facility] [id number]) Wound/Incision Assessment Coccyx Wound Assessment Shift Assessment Wound Type Pressure Ulcer Wound Stage Stage II Drainage Amount None General Appearance Open to air,Clean/Dry,Reddened Length (cm) (cm) 1 Width (cm) (cm) 1 Depth (cm) (cm) 0 Wound Bed Greatest Portion Yellow (Slough),Black (Eschar) Surrounding Tissue [place] Wound Photo Photo Taken Yes Date: 09/09/22 Time: 05:00 Lymphatic Exam: No adenopathy Results - Labs Lab/Micro Results: Lab Results-Last 24 Hours 09/08/22 09/08/22 09/08/22 Range/Units 21:07 21:07 21:55 WBC 5.9 (4.0-10.5) x10^3/uL RBC 2.44 L (4.1-5.6) x10^6/uL Hgb 6.9 L* (12.5-18.0) g/dL Hct 23.5 L (42-50) % MCV 96.3 (78-100) fL MCH 28.3 (26-32) pg MCHC 29.4 L (32-36) g/dL RDW 15.9 H (11.5-14.0) % Plt Count 7 L* (150-450) x10^3/uL Gran % 89.0 H (36.0-66.0) % Immature Gran % (Auto) 0.7 H (0.00-0.4) % Nucleat RBC Rel Count 0.0 (0.00-0.1) % Eos # (Auto) 0 (0-0.5) x10^3/uL Immature Gran # (Auto) 0.04 H (0.00-0.03) x10^3u/L Absolute Lymphs (auto) 0.26 L (1.0-4.6) x10^3/uL Absolute Monos (auto) 0.35 (0.0-1.3) x10^3/uL Absolute Nucleated RBC 0.00 (0.00-0.01) x10^3u/L Lymphocytes % 4.4 L (24.0-44.0) % Monocytes % 5.9 (0.0-12.0) % Eosinophils % 0.0 (0.00-5.0) % Basophils % 0.0 (0.0-0.4) % Absolute Granulocytes 5.27 (1.4-6.9) x10^3/uL Basophils # 0 (0-0.4) x10^3/uL Sodium 130 L (137-145) mmol/L Potassium 3.7 (3.5-5.1) mmol/L Chloride 100 (98-107) mmol/L Carbon Dioxide 26 (22-30) mmol/L Anion Gap 7.8 (5-15) MEQ/L BUN 37 H (9-20) mg/dL Creatinine 0.75 (0.66-1.25) mg/dL Estimated GFR > 60.0 ML/MIN Glucose 111 H (74-106) mg/dL Calcium 6.8 L (8.4-10.2) mg/dL Total Bilirubin 0.60 (0.2-1.3) mg/dL AST 23 (17-59) U/L ALT 25 (0-50) U/L Alkaline Phosphatase 364 H (38-126) U/L Serum Total Protein 5.4 L (6.3-8.2) g/dL Albumin 2.4 L (3.5-5.0) g/dL Prealbumin (17.6-36.0) mg/dL Influenza Type A Ag NEGATIVE (NEGATIVE) Influenza Type B Ag NEGATIVE (NEGATIVE) RSV (PCR) NEGATIVE (Negative) SARS-CoV-2 (PCR) NEGATIVE (NEGATIVE) Slides for Path Review YES ABO Group Rh Factor Antibody Screen (NEGATIVE) Crossmatch (COMPATIBLE) 09/08/22 09/08/22 09/08/22 Range/Units 23:55 23:55 23:55 WBC (4.0-10.5) x10^3/uL RBC (4.1-5.6) x10^6/uL Hgb (12.5-18.0) g/dL Hct (42-50) % MCV (78-100) fL MCH (26-32) pg MCHC (32-36) g/dL RDW (11.5-14.0) % Plt Count (150-450) x10^3/uL Gran % (36.0-66.0) % Immature Gran % (Auto) (0.00-0.4) % Nucleat RBC Rel Count (0.00-0.1) % Eos # (Auto) (0-0.5) x10^3/uL Immature Gran # (Auto) (0.00-0.03) x10^3u/L Absolute Lymphs (auto) (1.0-4.6) x10^3/uL Absolute Monos (auto) (0.0-1.3) x10^3/uL Absolute Nucleated RBC (0.00-0.01) x10^3u/L Lymphocytes % (24.0-44.0) % Monocytes % (0.0-12.0) % Eosinophils % (0.00-5.0) % Basophils % (0.0-0.4) % Absolute Granulocytes (1.4-6.9) x10^3/uL Basophils # (0-0.4) x10^3/uL Sodium (137-145) mmol/L Potassium (3.5-5.1) mmol/L Chloride (98-107) mmol/L Carbon Dioxide (22-30) mmol/L Anion Gap (5-15) MEQ/L BUN (9-20) mg/dL Creatinine (0.66-1.25) mg/dL Estimated GFR ML/MIN Glucose (74-106) mg/dL Calcium (8.4-10.2) mg/dL Total Bilirubin (0.2-1.3) mg/dL AST (17-59) U/L ALT (0-50) U/L Alkaline Phosphatase (38-126) U/L Serum Total Protein (6.3-8.2) g/dL Albumin (3.5-5.0) g/dL Prealbumin (17.6-36.0) mg/dL Influenza Type A Ag (NEGATIVE) Influenza Type B Ag (NEGATIVE) RSV (PCR) (Negative) SARS-CoV-2 (PCR) (NEGATIVE) Slides for Path Review ABO Group O Rh Factor POSITIVE Antibody Screen NEGATIVE (NEGATIVE) Crossmatch COMPATIBLE COMPATIBLE COMPATIBLE (COMPATIBLE) 09/09/22 09/09/22 Range/Units 10:40 10:40 WBC 6.7 (4.0-10.5) x10^3/uL RBC 4.00 L (4.1-5.6) x10^6/uL Hgb 10.7 L D (12.5-18.0) g/dL Hct 32.6 L (42-50) % MCV 81.5 D (78-100) fL MCH 26.8 (26-32) pg MCHC 32.8 (32-36) g/dL RDW 19.9 H (11.5-14.0) % Plt Count 8 L* (150-450) x10^3/uL Gran % 93.2 H (36.0-66.0) % Immature Gran % (Auto) 0.4 (0.00-0.4) % Nucleat RBC Rel Count 0.0 (0.00-0.1) % Eos # (Auto) 0.01 (0-0.5) x10^3/uL Immature Gran # (Auto) 0.03 (0.00-0.03) x10^3u/L Absolute Lymphs (auto) 0.13 L (1.0-4.6) x10^3/uL Absolute Monos (auto) 0.29 (0.0-1.3) x10^3/uL Absolute Nucleated RBC 0.00 (0.00-0.01) x10^3u/L Lymphocytes % 1.9 L (24.0-44.0) % Monocytes % 4.3 (0.0-12.0) % Eosinophils % 0.1 (0.00-5.0) % Basophils % 0.1 (0.0-0.4) % Absolute Granulocytes 6.23 (1.4-6.9) x10^3/uL Basophils # 0.01 (0-0.4) x10^3/uL Sodium 133 L (137-145) mmol/L Potassium 3.4 L (3.5-5.1) mmol/L Chloride 99 (98-107) mmol/L Carbon Dioxide 26 (22-30) mmol/L Anion Gap 11.2 (5-15) MEQ/L BUN 34 H (9-20) mg/dL Creatinine 0.85 (0.66-1.25) mg/dL Estimated GFR > 60.0 ML/MIN Glucose 119 H (74-106) mg/dL Calcium 7.0 L (8.4-10.2) mg/dL Total Bilirubin (0.2-1.3) mg/dL AST (17-59) U/L ALT (0-50) U/L Alkaline Phosphatase (38-126) U/L Serum Total Protein (6.3-8.2) g/dL Albumin (3.5-5.0) g/dL Prealbumin 5.51 L (17.6-36.0) mg/dL Influenza Type A Ag (NEGATIVE) Influenza Type B Ag (NEGATIVE) RSV (PCR) (Negative) SARS-CoV-2 (PCR) (NEGATIVE) Slides for Path Review YES ABO Group Rh Factor Antibody Screen (NEGATIVE) Crossmatch (COMPATIBLE) - Other Procedures and Tests Respiratory Therapy 09/09/22 03:57 Oxygen Nasal Cannula 2 lpm Respiratory Therapy Assessment DAILY Assessment/Plan (1) GI bleeding Current Visit: Yes Status: Acute Qualifiers: GI bleed type/associated pathology: melena Qualified Code(s): K92.1 - Melena Assessment & Plan: Chief Complaint Diagnosis GI bleed Allergies Allergy/AdvReac Type Severity Reaction Status Date / Time bee venom protein (honey bee) Allergy Verified 08/09/22 22:48 Vital Signs (Last 24 hours) Temp Pulse Resp BP Pulse Ox 09/09/22 16:00 98.9 F 57 L 16 131/79 90 L 09/09/22 14:45 94 H 18 95 09/09/22 11:21 80 18 97 09/09/22 08:01 96 H 18 95 09/09/22 07:15 99 H 18 96 09/09/22 05:49 99 H 18 96 09/09/22 04:00 97.9 F 98 H 16 101/56 92 L 09/09/22 02:55 99 09/08/22 23:47 97.8 F 91 H 18 99/75 99 09/08/22 23:00 97 H 124/92 99 09/08/22 22:01 73 118/94 96 09/08/22 21:39 95 09/08/22 20:47 97.6 F 62 16 113/90 95 Home Medications Medication Instructions Recorded Confirmed Last Taken Type Fluticasone/Umeclidin/Vilanter 1 puff IH DAILY 09/08/22 09/08/22 Unknown History [Trelegy Ellipta 100-62.5-25] Triamterene/Hydrochlorothiazid 1 each PO DAILY 09/08/22 09/08/22 Unknown History [Triamterene-Hctz 37.5-25 mg Tb] Venlafaxine HCl [Venlafaxine HCl 75 mg PO DAILY 09/08/22 09/09/22 Unknown History ER] Current Medications Generic Name Dose Route Start Last Admin Trade Name Freq PRN Reason Stop Dose Admin Hydrocodone Bitart/Acetaminophen 1 tab 09/09/22 12:25 Hydrocodone/Apap 5/325 Mg Tablet PO 09/14/22 12:24 Q4H/PRN PRN PAIN Albuterol Sulfate 4 puff 09/09/22 07:15 09/09/22 07:15 Albuterol Common Canister Inhaler 10/09/22 07:14 4 puff Q4HPRN PRN Administration SHORTNESS OF BREATH Albuterol Sulfate 2.5 mg 09/09/22 08:01 09/09/22 08:01 Albuterol Sulfate 2.5 Mg/3 Ml [facility] 10/09/22 08:00 2.5 mg Q4HPRN PRN Administration SHORTNESS OF BREATH Albuterol/Ipratropium 3 ml 09/09/22 07:00 09/09/22 14:41 Ipratropium/Albuterol Sulfate 3 Ml [facility] 10/09/22 06:59 3 ml QIDRT ZHOU Administration Diltiazem HCl 180 mg 09/10/22 10:00 Diltiazem Hcl Cd 180 Mg Cap.Sr.24h PO 10/10/22 09:59 DAILY ZHOU Famotidine 20 mg 09/08/22 23:33 09/09/22 11:47 Famotidine 20 Mg/1 Vial IV 10/08/22 23:32 20 mg Q12HT ZHOU Administration Furosemide 40 mg 09/08/22 23:33 09/09/22 06:52 Furosemide 40 Mg/4 Ml Vial IV 09/09/22 23:34 40 mg BETWEEN UNITS ZHOU Administration Sodium Chloride 1,000 mls @ 100 mls/hr 09/08/22 23:33 09/09/22 16:48 Sodium Chloride 0.9% 1000 Ml IV 10/08/22 23:32 100 mls/hr .Q10H ZHOU Administration Morphine Sulfate 4 mg 09/08/22 23:33 09/09/22 08:36 Morphine Sulfate 4 Mg/Ml Injection IV 09/13/22 23:32 4 mg Q4H PRN PRN Administration PAIN Morphine Sulfate 15 mg 09/09/22 13:00 09/09/22 13:06 Morphine Sulfate 15 Mg Tablet.Sa PO 09/14/22 12:59 15 mg Q12HT ZHOU Administration Nicotine 21 mg 09/09/22 22:00 Nicotine 21 Mg/Patch Patch TOP 10/09/22 00:44 QPM ZHOU Pantoprazole Sodium 40 mg 09/09/22 10:00 09/09/22 11:49 Pantoprazole 40 Mg Vial IV 10/09/22 09:59 40 mg Q24H10 ZHOU Administration Prochlorperazine 10 mg 09/09/22 12:25 Prochlorperazine Maleate 5 Mg Tablet PO 10/09/22 12:24 BID PRN PRN NAUSEA Fluticasone/Salmeterol 2 puff 09/09/22 07:00 09/09/22 05:43 Fluticasone/Salmeterol 115/21 - 120 Puff Common Canister IH 10/09/22 06:59 2 puff BIDRT ZHOU Administration Triamterene/Hydrochlorothiazide 1 tab 09/09/22 13:00 09/09/22 13:06 Triamterene/Hydrochlorothiazide 37.5/25mg 1 Tablet PO 10/09/22 12:59 1 tab DAILY ZHOU Administration Venlafaxine HCl 75 mg 09/09/22 13:00 09/09/22 13:06 Venlafaxine Hcl 75 Mg Extended Release Capsule PO 10/09/22 12:59 75 mg DAILY ZHOU Administration Discontinued Medications Generic Name Dose Route Start Last Admin Trade Name Nicholasq PRN Reason Stop Dose Admin Albuterol Sulfate Confirm 09/09/22 08:00 Albuterol Sulfate 2.5 Mg/3 Ml Neb Administered 09/09/22 08:01 Dose 2.5 mg IH .STK-MED ONE Diltiazem HCl 10 mg 09/09/22 10:08 09/09/22 10:45 Diltiazem Hcl Iv 5 Mg/Ml Vial IV 09/09/22 10:09 10 mg STAT ONE Administration Diltiazem HCl 120 mg 09/09/22 11:00 09/09/22 11:47 Diltiazem Hcl Cd 120 Mg Cap.Sr.24h PO 10/09/22 10:59 120 mg DAILY ZHOU Administration Sodium Chloride 1,000 mls @ 999 mls/hr 09/08/22 20:48 09/08/22 22:27 Sodium Chloride 0.9% 1000 Ml IV 09/08/22 21:48 Infused .Q1H1M STA Infusion Sodium Chloride Confirm 09/08/22 21:20 Sodium Chloride 0.9% 1000 Ml Administered 09/08/22 21:21 Dose 1,000 mls @ ud .ROUTE .STK-MED ONE Nicotine 21 mg 09/09/22 00:45 09/09/22 02:18 Nicotine 21 Mg/Patch Patch TOP 10/09/22 00:44 21 mg Q24H ZHOU Administration Pantoprazole Sodium 40 mg 09/08/22 20:48 09/08/22 21:23 Pantoprazole 40 Mg Vial IV 09/08/22 20:49 40 mg STAT ONE Administration Pantoprazole Sodium Confirm 09/08/22 21:20 Pantoprazole 40 Mg Vial Administered 09/08/22 21:21 Dose 40 mg IV .STK-MED ONE Intake & Output (Last 24 hours) 09/07/22 09/08/22 09/09/22 09/10/22 11:59 11:59 11:59 11:59 Intake Total 1266 120 Output Total 2225 625 Balance -959 -505 Weight 47.3 kg Laboratory Results (Last 24 hours) 09/09/22 09/09/22 09/08/22 10:40 10:40 23:55 WBC 6.7 RBC 4.00 L Hgb 10.7 L D Hct 32.6 L MCV 81.5 D MCH 26.8 MCHC 32.8 RDW 19.9 H Plt Count 8 L* Gran % 93.2 H Immature Gran % (Auto) 0.4 Nucleat RBC Rel Count 0.0 Eos # (Auto) 0.01 Immature Gran # (Auto) 0.03 Absolute Lymphs (auto) 0.13 L Absolute Monos (auto) 0.29 Absolute Nucleated RBC 0.00 Lymphocytes % 1.9 L Monocytes % 4.3 Eosinophils % 0.1 Basophils % 0.1 Absolute Granulocytes 6.23 Basophils # 0.01 Sodium 133 L Potassium 3.4 L Chloride 99 Carbon Dioxide 26 Anion Gap 11.2 BUN 34 H Creatinine 0.85 Estimated GFR > 60.0 Glucose 119 H Calcium 7.0 L Total Bilirubin AST ALT Alkaline Phosphatase Serum Total Protein Albumin Prealbumin 5.51 L Influenza Type A Ag Influenza Type B Ag RSV (PCR) SARS-CoV-2 (PCR) Slides for Path Review YES ABO Group Rh Factor Antibody Screen Crossmatch COMPATIBLE 09/08/22 09/08/22 09/08/22 23:55 23:55 21:55 WBC RBC Hgb Hct MCV MCH MCHC RDW Plt Count Gran % Immature Gran % (Auto) Nucleat RBC Rel Count Eos # (Auto) Immature Gran # (Auto) Absolute Lymphs (auto) Absolute Monos (auto) Absolute Nucleated RBC Lymphocytes % Monocytes % Eosinophils % Basophils % Absolute Granulocytes Basophils # Sodium Potassium Chloride Carbon Dioxide Anion Gap BUN Creatinine Estimated GFR Glucose Calcium Total Bilirubin AST ALT Alkaline Phosphatase Serum Total Protein Albumin Prealbumin Influenza Type A Ag NEGATIVE Influenza Type B Ag NEGATIVE RSV (PCR) NEGATIVE SARS-CoV-2 (PCR) NEGATIVE Slides for Path Review ABO Group O Rh Factor POSITIVE Antibody Screen NEGATIVE Crossmatch COMPATIBLE COMPATIBLE 09/08/22 09/08/22 21:07 21:07 WBC 5.9 RBC 2.44 L Hgb 6.9 L* Hct 23.5 L MCV 96.3 MCH 28.3 MCHC 29.4 L RDW 15.9 H Plt Count 7 L* Gran % 89.0 H Immature Gran % (Auto) 0.7 H Nucleat RBC Rel Count 0.0 Eos # (Auto) 0 Immature Gran # (Auto) 0.04 H Absolute Lymphs (auto) 0.26 L Absolute Monos (auto) 0.35 Absolute Nucleated RBC 0.00 Lymphocytes % 4.4 L Monocytes % 5.9 Eosinophils % 0.0 Basophils % 0.0 Absolute Granulocytes 5.27 Basophils # 0 Sodium 130 L Potassium 3.7 Chloride 100 Carbon Dioxide 26 Anion Gap 7.8 BUN 37 H Creatinine 0.75 Estimated GFR > 60.0 Glucose 111 H Calcium 6.8 L Total Bilirubin 0.60 AST 23 ALT 25 Alkaline Phosphatase 364 H Serum Total Protein 5.4 L Albumin 2.4 L Prealbumin Influenza Type A Ag Influenza Type B Ag RSV (PCR) SARS-CoV-2 (PCR) Slides for Path Review YES ABO Group Rh Factor Antibody Screen Crossmatch Orders (Last 24 hours) Category Date Time Status Bedrest with BRP/BSC TOLERATED Activity 09/08/22 23:33 Active Code Status Order ROUTINE Care 09/08/22 23:33 Active Consent,Obtain ROUTINE Care 09/08/22 23:33 Active IV Care Q6H Care 09/08/22 23:33 Active IV Insertion-2nd Peripheral ROUTINE Care 09/08/22 23:[address] in Observation ROUTINE Care 09/08/22 23:33 Active Software Test Specialist/Discharge Plan ROUTINE Cons 09/09/22 10:00 Active Clear Liquid Diet 09/09/22 Breakfast Completed Clear Liquid Diet 09/09/22 Breakfast Completed House Regular Diet Diet 09/09/22 Lunch Active Nutritional Admission Screen ONCE Diet 09/09/22 10:00 Active BLOOD COMPONENT REQUEST Stat Lab 09/08/22 23:55 Completed BMP Routine Lab 09/09/22 10:40 Completed CBC W DIFF AM.LAB Lab 09/09/22 10:40 Completed CBC W DIFF AM.LAB Lab 09/10/22 04:00 Ordered CBC W DIFF Stat Lab 09/08/22 21:07 Completed CMP AM.LAB Lab 09/10/22 04:00 Ordered CMP Stat Lab 09/08/22 21:07 Completed COVID/FLU/RSV Panel Routine Lab 09/08/22 21:55 Completed PREALBUMIN Routine Lab 09/09/22 10:40 Completed TYPE AND SCREEN Stat Lab 09/08/22 23:55 Completed Albuterol 2.5 mg/3 ml Neb [Proventil 2.5 mg/3 ml Neb Med 09/09/22 08:00 Discontinued ] 2.5 mg IH .STK-MED ONE Albuterol 2.5 mg/3 ml Neb [Proventil 2.5 mg/3 ml Neb Med 09/09/22 08:01 Active ] 2.5 mg IH Q4HPRN PRN Albuterol Common Canister [Ventolin Common Canister* Med 09/09/22 07:15 Active ] 4 puff IH Q4HPRN PRN Albuterol/Ipratropium 3ml Neb* [DUONEB 0.5-3 MG/3 ml Med 09/09/22 07:00 Active Neb] 3 ml IH QIDRT Diltiazem HCl 50 mg/10 ml [Cardizem IV 50 MG/10 ML Med 09/09/22 10:08 Discontinued *] 10 mg IV STAT ONE Diltiazem HCl Cd [Cardizem CD ] Med 09/09/22 11:00 Discontinued 120 mg PO DAILY Diltiazem HCl Cd [Cardizem CD ] Med 09/10/22 10:00 Active 180 mg PO DAILY Famotidine 20 mg Vial [Pepcid 20 MG VIAL] Med 09/08/22 23:33 Active 20 mg IV Q12HT Flu Vacc [id number]([id number] Up)/Pf [Fluzone High-Dose Quad Med 09/09/22 10:00 Discontinued ] 240 mcg IM .ONCE ONE Fluticasone/Salmeterol 115/21 [Advair Hfa 115/21 Common Med 09/09/22 07:00 Active canister*] 2 puff IH BIDRT Furosemide 40 mg/4 ml [Lasix 40 MG/4 ML] Med 09/08/22 23:33 Active 40 mg IV BETWEEN UNITS Hctz/Triamteren 37.5 mg/25 mg* [Maxzide-25MG Tablet] Med 09/09/22 13:00 Active 1 tab PO DAILY Hydrocodone/APAP 5/325 [[place] 5/325 mg] Med 09/09/22 12:25 Active 1 tab PO Q4H/PRN PRN Morphine Sulfate 4 mg Inj Med 09/08/22 23:33 Active 4 mg IV Q4H PRN PRN Morphine Sulfate Cr 15 mg [Ms Contin 15 MG] Med 09/09/22 13:00 Active 15 mg PO Q12HT NaCl 0.9% 1000 ml [Sodium Chloride 0.9% 1000 ML] 1,000 Med 09/08/22 21:20 Discontinued ml .ROUTE UD NaCl 0.9% 1000 ml [Sodium Chloride 0.9% 1000 ML] 1,000 Med 09/08/22 23:33 Active ml IV 100 mls/hr NaCl 0.9% 1000 ml [Sodium Chloride 0.9% 1000 ML] 1,000 Med 09/08/22 20:48 Discontinued ml IV 999 mls/hr Nicotine 21 mg [Nicoderm CQ 21 MG] Med 09/09/22 00:45 Discontinued 21 mg TOP Q24H Nicotine 21 mg [Nicoderm CQ 21 MG] Med 09/09/22 22:00 Active 21 mg TOP QPM Pantoprazole 40 mg [Protonix 40 mg IV] Med 09/08/22 21:20 Discontinued 40 mg IV .STK-MED ONE Pantoprazole 40 mg [Protonix 40 mg IV] Med 09/09/22 10:00 Active 40 mg IV Q24H10 Pantoprazole 40 mg [Protonix 40 mg IV] Med 09/08/22 20:48 Discontinued 40 mg IV STAT ONE Prochlorperazine Maleate 5 mg* [Compazine 5 MG] Med 09/09/22 12:25 Active 10 mg PO BID PRN PRN Venlafaxine HCl ER 75 mg [Effexor XR 75 MG] Med 09/09/22 13:00 Active 75 mg PO DAILY OT Screen per Nursing Assess ONCE OT 09/09/22 10:00 Active PT Screen per Nursing Assess ONCE PT 09/09/22 00:31 Active Oxygen Nasal Cannula 2 lpm RT 09/09/22 03:57 Active Pulse Oximetry .spot check RT 09/09/22 03:57 Active RT Screen per Nursing Assess ONCE RT 09/09/22 10:00 Completed Respiratory MDI UD RT 09/09/22 03:58 Completed Respiratory Therapy Assessment DAILY RT 09/09/22 03:57 Active Smoking Cessation Education ONCE RT 09/09/22 10:00 Completed Patient Care Notes (Last 24 hours) 09/09/22 15:02 Case Management Note by Pallavi Alexis PATIENT HAS [facility]. HE IS SET UP WITH ALL THE SERVICES THEY OFFER. THEY WERE NOTIFIED HE IS HERE OBS. THEY WILL NEED NOTIFIED AT TIME OF DC AT [phone]. THEY WILL NEED FAXED THE DC INSTRUCTIONS, DC MED LIST AND DC SUMMARY ( IF AVAILABLE) AT TIME OF DC AT [phone] Initialized on 09/09/22 15:02 - END OF NOTE 09/09/22 03:32 Nursing Note by Juliane Rudd Patient has port in left upper chest. Not accessed. Patient stated it does not draw blood. Initialized on 09/09/22 03:32 - END OF NOTE 09/09/22 02:26 Nursing Note by Juliane Rudd Patient has morphine 15mg tablets and norco from home. Refused to have meds locked up. This nurse counted narcotics and wrote totals on paper and nurse and patient both signed paper and paper placed in the front of the chart. Explained to patient if he changed his mind the meds could be placed in lockup anytime. Initialized on 09/09/22 02:26 - END OF NOTE 09/09/22 02:22 Nursing Note by Juliane Rudd Dr. called and all home meds continued. Patient stated he is not concerned with receiving any home meds tonight. No meds entered into chart per pharmacy protocol. Initialized on 09/09/22 02:22 - END OF NOTE 09/09/22 02:21 Nursing Note by Juliane Rudd 1st of 3 units of prbc's started at 0210. Initialized on 09/09/22 02:21 - END OF NOTE 09/09/22 00:00 (created 09/09/22 02:19) Nursing Note by Juliane Rudd Patient arrived to floor at 2330 09/08/22. Transferred to bed with 2 assist. Patient incontinent of large amount of brown tarry stool. Cleaned patient and changed bed/placed denpend on patient. stage II open area noted to coccyx bone. Patient on clear liquid diet and given chicken broth and water. Initialized on 09/09/22 02:19 - END OF NOTE Code(s): K92.2 - GASTROINTESTINAL HEMORRHAGE, UNSPECIFIED (2) Lung cancer, main bronchus Current Visit: Yes Status: Acute Code(s): C34.00 - MALIGNANT NEOPLASM OF UNSPECIFIED MAIN BRONCHUS (3) Anemia Current Visit: Yes Status: Acute Qualifiers: Anemia type: iron deficiency Iron deficiency anemia type: chronic blood loss Qualified Code(s): D50.0 - Iron deficiency anemia secondary to blood loss (chronic) Code(s): D64.9 - ANEMIA, UNSPECIFIED
[2022-09-09] MEDS: NORCO 5/325 MG PO PRN ×2 (18:40→23:47)
[2022-09-09] MEDS ORDERED: VENTOLIN COMMON CANISTER IH PRN (21:58)
[2022-09-10] MEDS: Sodium Chloride 0.9% 1000 ML 1,000 ML IV SCH (03:05)
[2022-09-10 05:32] LABS: Absolute Neutrophil Ct (ANC) 5.54 x10^3/uL (1.4-6.9); Basophil (Absolute #) 0.01 x10^3/uL (0-0.4); Eosinophil % 0.7 % (0.00-5.0); Eosinophil (Absolute #) 0.04 x10^3/uL (0-0.5); Hematocrit 32.2 % (42-50); Hemoglobin 10.1 g/dL (12.5-18.0); Lymphocyte (Absolute #) 0.14 x10^3/uL (1.0-4.6); Lymphocytes % 2.3 % (24.0-44.0); Mean Cell Volume 83.9 fL (78-100); Mean Corpuscular Hemoglobin 26.3 pg (26-32); Mean Corpuscular Hgb Concent. 31.4 g/dL (32-36); Monocyte (Absolute #) 0.27 x10^3/uL (0.0-1.3); Monocytes % 4.5 % (0.0-12.0); Neutrophil % 91.8 % (36.0-66.0); Red Blood Count 3.84 x10^6/uL (4.1-5.6); Red Cell Distribution Width 20.2 % (11.5-14.0)
[2022-09-10] MEDS: Advair Hfa 115/21 Common canister IH SCH (05:35)
[2022-09-10] MEDS: DUONEB 0.5-3 MG/3 ml Neb IH SCH ×2 (05:35→10:13)
[2022-09-10 05:51] LABS: Platelet Count 15 x10^3/uL (150-450)
[2022-09-10 05:58] LABS: ALBUMIN 2.5 g/dL (3.5-5.0); ALKALINE PHOSPHATASE 385 U/L (38-126); ANION GAP 8.7 MEQ/L (5-15); BLOOD UREA NITROGEN 24 mg/dL (9-20); CHLORIDE 99 mmol/L (98-107); Calcium 6.9 mg/dL (8.4-10.2); Carbon Dioxide 28 mmol/L (22-30); Creatinine 1 0.73 mg/dL (0.66-1.25); EST GLOMERULAR FILTRATION RATE > 60.0 ML/MIN; Glucose 80 mg/dL (74-106); Potassium 3.3 mmol/L (3.5-5.1); SGOT/AST 23 U/L (17-59); SGPT/ALT 20 U/L (0-50); SODIUM 132 mmol/L (137-145); Total Protein 5.6 g/dL (6.3-8.2)
[2022-09-10] MEDS: NORCO 5/325 MG PO PRN (06:50)
[2022-09-10 07:18] LABS: Slide Review 1 YES
[2022-09-10] MEDS: Ms Contin 15 MG PO SCH (09:31)
[2022-09-10] MEDS: Maxzide-25MG Tablet PO SCH (09:31)
[2022-09-10] MEDS: PROTONIX 40 MG IV IV SCH (09:31)
[2022-09-10] MEDS: Effexor XR 75 MG PO SCH (09:32)
[2022-09-10] MEDS: Pepcid 20 MG VIAL IV SCH (09:32)
[2022-09-10] MEDS ORDERED: NON-FORMULARY ITEM (Venlafaxine Hcl [Venlafaxine Hcl Er] 75 MG Tab.Er.24) PO SCH (10:00)
[2022-09-10] MEDS ORDERED: Cardizem CD PO SCH (10:00)
[2022-09-10] MEDS: VENTOLIN COMMON CANISTER IH PRN (10:09)
[2022-09-10 11:36] VITALS: BP 128/98; PULSE 102; O2SAT 92
--- NOTE | 2022-09-10 13:06 | PCM.DS ---
Discharge Summary Date of Admission: 09/08/22 23:29 Admitting Physician: BEBO YUEN Primary Care Provider: ELIUD DURON MD Allergies Allergies bee venom protein (honey bee) Allergy (Verified 08/09/22 22:48) Hospital Summary - Hospital Course Hospital Course: Chief Complaint Diagnosis dark mary stool today Allergies Allergy/AdvReac Type Severity Reaction Status Date / Time bee venom protein (honey bee) Allergy Verified 08/09/22 22:48 Vital Signs (Last 24 hours) Temp Pulse Resp BP Pulse Ox 09/10/22 11:35 98.9 F 102 H 15 128/98 92 L 09/10/22 10:14 80 22 91 L 09/10/22 09:00 90 L 09/10/22 07:09 99.0 F 86 16 117/86 94 L 09/10/22 05:35 84 20 94 L 09/10/22 04:00 98.9 F 94 H 24 135/75 93 L 09/10/22 00:00 99.1 F 74 28 H 119/78 91 L 09/09/22 21:59 90 24 92 L 09/09/22 20:00 98.6 F 91 H 22 126/59 95 09/09/22 19:03 114 H 20 94 L 09/09/22 16:00 98.9 F 57 L 16 131/79 90 L 09/09/22 14:45 94 H 18 95 Home Medications Medication Instructions Recorded Confirmed Last Taken Type Fluticasone/Umeclidin/Vilanter 1 puff IH DAILY 09/08/22 09/08/22 Unknown History [Trelegy Ellipta 100-62.5-25] Triamterene/Hydrochlorothiazid 1 each PO DAILY 09/08/22 09/08/22 Unknown History [Triamterene-Hctz 37.5-25 mg Tb] Venlafaxine HCl [Venlafaxine HCl 75 mg PO DAILY 09/08/22 09/09/22 Unknown History ER] Diltiazem HCl [Diltiazem 24Hr ER] 180 mg PO DAILY #30 cap 09/10/22 Unknown Rx Famotidine 20 mg [Pepcid 20 20 mg PO BID #60 tablet 09/10/22 Unknown Rx MG] Nicotine 21 mg [Nicoderm CQ 21 21 mg TOP DAILY 30 Days #30 patch 09/10/22 Unknown Rx MG] PANTOPRAZOLE 40 mg Tablet 40 mg PO QAM #30 tab 09/10/22 Unknown Rx [Protonix 40MG Tablet] Current Medications Generic Name Dose Route Start Last Admin Trade Name Freq PRN Reason Stop Dose Admin Hydrocodone Bitart/Acetaminophen 1 tab 09/09/22 12:25 09/10/22 06:50 Hydrocodone/Apap 5/325 Mg Tablet PO 09/14/22 12:24 1 tab Q4H/PRN PRN Administration PAIN Albuterol Sulfate 4 puff 09/09/22 07:15 09/10/22 10:09 Albuterol Common Canister Inhaler 10/09/22 07:14 4 puff Q4HPRN PRN Administration SHORTNESS OF BREATH Albuterol Sulfate 2.5 mg 09/09/22 08:01 09/09/22 08:01 Albuterol Sulfate 2.5 Mg/3 Ml [facility] 10/09/22 08:00 2.5 mg Q4HPRN PRN Administration SHORTNESS OF BREATH Albuterol/Ipratropium 3 ml 09/09/22 07:00 09/10/22 10:13 Ipratropium/Albuterol Sulfate 3 Ml [facility] 10/09/22 06:59 Not Given QIDRT ZHOU Diltiazem HCl 180 mg 09/10/22 10:00 09/10/22 09:32 Diltiazem Hcl Cd 180 Mg Cap.Sr.24h PO 10/10/22 09:59 180 mg DAILY ZHOU Administration Famotidine 20 mg 09/08/22 23:33 09/10/22 09:32 Famotidine 20 Mg/1 Vial IV 10/08/22 23:32 20 mg Q12HT ZHOU Administration Sodium Chloride 1,000 mls @ 100 mls/hr 09/08/22 23:33 09/10/22 03:05 Sodium Chloride 0.9% 1000 Ml IV 10/08/22 23:32 100 mls/hr .Q10H ZHOU Administration Morphine Sulfate 4 mg 09/08/22 23:33 09/09/22 08:36 Morphine Sulfate 4 Mg/Ml Injection IV 09/13/22 23:32 4 mg Q4H PRN PRN Administration PAIN Morphine Sulfate 15 mg 09/09/22 13:00 09/10/22 09:31 Morphine Sulfate 15 Mg Tablet.Sa PO 09/14/22 12:59 15 mg Q12HT ZHOU Administration Nicotine 21 mg 09/09/22 22:00 09/09/22 21:56 Nicotine 21 Mg/Patch Patch TOP 10/09/22 00:44 21 mg QPM ZHOU Administration Pantoprazole Sodium 40 mg 09/09/22 10:00 09/10/22 09:31 Pantoprazole 40 Mg Vial IV 10/09/22 09:59 40 mg Q24H10 ZHOU Administration Prochlorperazine 10 mg 09/09/22 12:25 09/09/22 23:47 Prochlorperazine Maleate 5 Mg Tablet PO 10/09/22 12:24 10 mg BID PRN PRN Administration NAUSEA Fluticasone/Salmeterol 2 puff 09/09/22 07:00 09/10/22 05:35 Fluticasone/Salmeterol 115/21 - 120 Puff Common Canister IH 10/09/22 06:59 2 puff BIDRT ZHOU Administration Triamterene/Hydrochlorothiazide 1 tab 09/09/22 13:00 09/10/22 09:31 Triamterene/Hydrochlorothiazide 37.5/25mg 1 Tablet PO 10/09/22 12:59 1 tab DAILY ZHOU Administration Venlafaxine HCl 75 mg 09/09/22 13:00 09/10/22 09:32 Venlafaxine Hcl 75 Mg Extended Release Capsule PO 10/09/22 12:59 75 mg DAILY ZHOU Administration Discontinued Medications Generic Name Dose Route Start Last Admin Trade Name Freq PRN Reason Stop Dose Admin Albuterol Sulfate Confirm 09/09/22 08:00 Albuterol Sulfate 2.5 Mg/3 Ml Neb Administered 09/09/22 08:01 Dose 2.5 mg IH .STK-MED ONE Diltiazem HCl 10 mg 09/09/22 10:08 09/09/22 10:45 Diltiazem Hcl Iv 5 Mg/Ml Vial IV 09/09/22 10:09 10 mg STAT ONE Administration Diltiazem HCl 120 mg 09/09/22 11:00 09/09/22 11:47 Diltiazem Hcl Cd 120 Mg Cap.Sr.24h PO 10/09/22 10:59 120 mg DAILY ZHOU Administration Furosemide 40 mg 09/08/22 23:33 09/09/22 06:52 Furosemide 40 Mg/4 Ml Vial IV 09/09/22 23:34 40 mg BETWEEN UNITS ZHOU Administration Sodium Chloride 1,000 mls @ 999 mls/hr 09/08/22 20:48 09/08/22 22:27 Sodium Chloride 0.9% 1000 Ml IV 09/08/22 21:48 Infused .Q1H1M STA Infusion Sodium Chloride Confirm 09/08/22 21:20 Sodium Chloride 0.9% 1000 Ml Administered 09/08/22 21:21 Dose 1,000 mls @ ud .ROUTE .STK-MED ONE Nicotine 21 mg 09/09/22 00:45 09/09/22 02:18 Nicotine 21 Mg/Patch Patch TOP 10/09/22 00:44 21 mg Q24H ZHOU Administration Pantoprazole Sodium 40 mg 09/08/22 20:48 09/08/22 21:23 Pantoprazole 40 Mg Vial IV 09/08/22 20:49 40 mg STAT ONE Administration Pantoprazole Sodium Confirm 09/08/22 21:20 Pantoprazole 40 Mg Vial Administered 09/08/22 21:21 Dose 40 mg IV .STK-MED ONE Intake & Output (Last 24 hours) 09/08/22 09/09/22 09/10/22 09/11/22 11:59 11:59 11:59 11:59 Intake Total 1266 4325 350 Output Total 2225 2850 Balance -959 1475 350 Weight 47.3 kg Laboratory Results (Last 24 hours) 09/10/22 09/10/22 09/09/22 05:25 05:25 10:40 WBC 6.0 RBC 3.84 L Hgb 10.1 L Hct 32.2 L MCV 83.9 MCH 26.3 MCHC 31.4 L RDW 20.2 H Plt Count 15 L* D Gran % 91.8 H Immature Gran % (Auto) 0.5 H Nucleat RBC Rel Count 0.0 Eos # (Auto) 0.04 Immature Gran # (Auto) 0.03 Absolute Lymphs (auto) 0.14 L Absolute Monos (auto) 0.27 Absolute Nucleated RBC 0.00 Lymphocytes % 2.3 L Monocytes % 4.5 Eosinophils % 0.7 Basophils % 0.2 Absolute Granulocytes 5.54 Basophils # 0.01 Sodium 132 L Potassium 3.3 L Chloride 99 Carbon Dioxide 28 Anion Gap 8.7 BUN 24 H Creatinine 0.73 Estimated GFR > 60.0 Glucose 80 Calcium 6.9 L Total Bilirubin 0.70 AST 23 ALT 20 Alkaline Phosphatase 385 H Serum Total Protein 5.6 L Albumin 2.5 L Slides for Path Review YES YES Orders (Last 24 hours) Category Date Time Status CBC W DIFF AM.LAB Lab 09/10/22 05:25 Completed CMP AM.LAB Lab 09/10/22 05:25 Completed Diltiazem HCl Cd [Cardizem CD ] Med 09/10/22 10:00 Active 180 mg PO DAILY Hctz/Triamteren 37.5 mg/25 mg* [Maxzide-25MG Tablet] Med 09/09/22 13:00 Active 1 tab PO DAILY Hydrocodone/APAP 5/325 [[place] 5/325 mg] Med 09/09/22 12:25 Active 1 tab PO Q4H/PRN PRN Morphine Sulfate Cr 15 mg [Ms Contin 15 MG] Med 09/09/22 13:00 Active 15 mg PO Q12HT Nicotine 21 mg [Nicoderm CQ 21 MG] Med 09/09/22 22:00 Active 21 mg TOP QPM Prochlorperazine Maleate 5 mg* [Compazine 5 MG] Med 09/09/22 12:25 Active 10 mg PO BID PRN PRN Venlafaxine HCl ER 75 mg [Effexor XR 75 MG] Med 09/09/22 13:00 Active 75 mg PO DAILY Patient Care Notes (Last 24 hours) 09/10/22 12:51 Case Management Note by Jacey Keller SPOKE WITH [facility]OR FORKLIFT OPERATOR AND SHE WILL BE OUT TO SEE PT THIS WEEK. ALSO, SHE HAS TALKED WITH [facility] AND THEY WILL START SERVICES WITH HIM THIS WEEK, 4 HOURS WEEKLY APPROVED. Initialized on 09/10/22 12:51 - END OF NOTE 09/10/22 10:23 Case Management Note by Pallavi Alexis S/W PATIENT ABOUT NEEDS AT NC. HE LIVES ALONE BUT HIS SISTER WHO ALREADY CHECKS ON HIM FREQUENTLY IS AWARE HE NEEDS MORE ASSISTANCE AND IS WILLING TO TRY TO HELP MORE. PATIENT HAS HHC WITH EVERY DISCIPLINE THEY OFFER SET UP. HE HAS INTERNAL WHOLESALER WITH [facility] WHO IS WORKING ON GETTING HIM [facility]. HE ALR GUILLAUME HAS HOME OXYGEN AT 2L/NC 20/06. HE WILL NEED SENT HOME WITH PORTABLE FROM [facility] HIS PORTABLES HOME ARE EMPTY. I CALLED AND S/W LEANA AT [facility] 09/09- THEY WILL F/U WITH PATIENT AND SEE IF HE QUALIFIES FOR A CONSERVING DEVICE WHILE WAITING ON A PORTABLE CONCENTRATOR. Saima KELLER DISCUSSED HOSPICE SERVICES WITH PATIENT 09/09 BUT PATIENT REPORTS HE IS NOT READY FOR THAT YET. HE WISHES TO CONTINUE GETTING TREATMENT. PATIENT REPORTS HIS SISTER HAS OFFERED FOR HIM TO MOVE IN WITH HER BUT HE REPORT S HE DOES NOT WANT TO. PATIENT USES WALKER AT HOME AND HAS PHYSICAL THERAPY SET UP. NO NEW/DIFFERENT NEEDS IDENTIFIED AT THIS TIME. PATIENT PLANS TO DC HOME TO HIS PRIOR LEVEL OF FUNCTIONING CALLED [facility]- REQUESTED A SAME DAY VISIT AT [place] IF AVAILABLE. PATIENT ALSO GIVEN PULSE OXIMETER AND INSTRUCTED ON ITS USE HE REPORTS HE DOES NOT HAVE ONE AT HOME Initialized on 09/10/22 10:23 - END OF NOTE 09/09/22 15:02 Case Management Note by Pallavi Alexis [facility] HE IS SET UP WITH ALL THE SERVICES THEY OFFER. THEY WERE NOTIFIED HE IS HERE OBS. THEY WILL NEED NOTIFIED AT TIME OF DC AT [phone]. THEY WILL NEED FAXED THE DC INSTRUCTIONS, DC MED LIST AND DC SUMMARY ( IF AVAILABLE) AT TIME OF DC AT [phone] Initialized on 09/09/22 15:02 - END OF NOTE 09/09/22 15:00 (created 09/10/22 08:55) Case Management Note by Jacey Keller SPOKE WITH PT AND SISTER REGARDING NEEDS AT HOME. SISTER REPORTS THAT SHE UNDERSTANDS THAT PT IS NOW REQUIRING MORE HELP AND SHE WILL DO WHAT SHE CAN TO HELP HIM. REPORTS THAT HER HEALTH IS NOT GREAT EITHER. HAS GENERAL LABOR FORKLIFT OPERATOR WITH [facility] AREA ON AGING AND DISABLED. SPOKE WITH GIANLUCA CHINCHILLA, PT'S GENERAL LABOR FORKLIFT OPERATOR. REPORTS THAT HE HAS JUST BEEN APPROVED FOR 4 HOURS ASSISTANCE PER WEEK WITH [facility]. CALL TO [facility] AND THEY HAVE NOT RECEIVED ANY INFORMATION ON PT YET. CALL PLACED TO GIANLUCA ANDRES FOR F/U, LEFT VOICEMAIL MESSAGE. ALSO, CALL PLACED TO [facility]. PT HAS NURSE, AIDE, P.T./O.T., AND VETERINARY TECHNICIAN. REQUESTED THAT FEATURES EDITOR F/U WITH GIANLUCA CHINCHILLA FROM [facility] FOR ADDING ADDITIONAL SERVICES. [facility] REPORTS THAT THEY WILL HAVE FEATURES EDITOR F/U. Initialized on 09/10/22 08:55 - END OF NOTE - Vitals & Intake/Output Vital Signs: Vital Signs Temperature 98.9 F 09/10/22 11:35 Pulse Rate 102 H 09/10/22 11:35 Respiratory Rate 15 09/10/22 11:35 Blood Pressure 128/98 09/10/22 11:35 O2 Sat by Pulse Oximetry 92 L 09/10/22 11:35 Intake & Output: Intake & Output 09/08/22 09/09/22 09/10/22 09/11/22 11:59 11:59 11:59 11:59 Intake Total 1266 4325 350 Output Total 2225 2850 Balance -959 1475 350 Weight 47.3 kg - Lab Result Diagrams: 09/10/22 05:25 09/10/22 05:25 Lab Results-Last 24 Hrs: Lab Results-Last 24 Hours 09/09/22 09/10/22 09/10/22 Range/Units 10:40 05:25 05:25 WBC 6.0 (4.0-10.5) x10^3/uL RBC 3.84 L (4.1-5.6) x10^6/uL Hgb 10.1 L (12.5-18.0) g/dL Hct 32.2 L (42-50) % MCV 83.9 (78-100) fL MCH 26.3 (26-32) pg MCHC 31.4 L (32-36) g/dL RDW 20.2 H (11.5-14.0) % Plt Count 15 L* D (150-450) x10^3/uL Gran % 91.8 H (36.0-66.0) % Immature Gran % (Auto) 0.5 H (0.00-0.4) % Nucleat RBC Rel Count 0.0 (0.00-0.1) % Eos # (Auto) 0.04 (0-0.5) x10^3/uL Immature Gran # (Auto) 0.03 (0.00-0.03) x10^3u/L Absolute Lymphs (auto) 0.14 L (1.0-4.6) x10^3/uL Absolute Monos (auto) 0.27 (0.0-1.3) x10^3/uL Absolute Nucleated RBC 0.00 (0.00-0.01) x10^3u/L Lymphocytes % 2.3 L (24.0-44.0) % Monocytes % 4.5 (0.0-12.0) % Eosinophils % 0.7 (0.00-5.0) % Basophils % 0.2 (0.0-0.4) % Absolute Granulocytes 5.54 (1.4-6.9) x10^3/uL Basophils # 0.01 (0-0.4) x10^3/uL Sodium 132 L (137-145) mmol/L Potassium 3.3 L (3.5-5.1) mmol/L Chloride 99 (98-107) mmol/L Carbon Dioxide 28 (22-30) mmol/L Anion Gap 8.7 (5-15) MEQ/L BUN 24 H (9-20) mg/dL Creatinine 0.73 (0.66-1.25) mg/dL Estimated GFR > 60.0 ML/MIN Glucose 80 (74-106) mg/dL Calcium 6.9 L (8.4-10.2) mg/dL Total Bilirubin 0.70 (0.2-1.3) mg/dL AST 23 (17-59) U/L ALT 20 (0-50) U/L Alkaline Phosphatase 385 H (38-126) U/L Serum Total Protein 5.6 L (6.3-8.2) g/dL Albumin 2.5 L (3.5-5.0) g/dL Slides for Path Review YES YES - Procedures and Test Procedures and Tests throughout Hospitalization: Therapy Orders & Screens 09/09/22 00:31 PT Screen per Nursing Assess ONCE Comment: Protocol Order Physician Instructions: Greater than 3 points order PT Admission Screenin Reason For Exam: Triggered on Admission Diagnosis: GI bleed Open Wound/Cellutlitis/Pressure Ulcers: No Acute Fx/ORIF/Change in wt bearing status: No Severe MUSCULOSKELETAL pain: Yes ADL Dysfunction: Yes Acute CVA w/Hemiparesis/Hemiplegia: No Decreased Functional Mobility/Strength: Yes Sprain/Strain: No Acute Post-op Mobility Dysfunction: No Total Points: 9 09/09/22 03:57 Oxygen Nasal Cannula 2 lpm Comment: Diagnosis: GI bleed Respiratory Therapy Assessment DAILY Comment: Diagnosis: GI bleed 09/09/22 03:58 Respiratory MDI UD Comment: Diagnosis: GI bleed 09/09/22 10:00 OT Screen per Nursing Assess ONCE Comment: Protocol Order Physician Instructions: Greater than 3 points order OT Admission Screening Reason For Exam: Triggered on Admission Diagnosis: GI bleed Open Wound/Cellutlitis/Pressure Ulcers: No Acute Fx/ORIF/Change in wt bearing status: No Severe MUSCULOSKELETAL pain: Yes ADL Dysfunction: Yes Acute CVA w/Hemiparesis/Hemiplegia: No Decreased Functional Mobility/Strength: Yes Sprain/Strain: No Acute Post-op Mobility Dysfunction: No Total Points: 9 RT Screen per Nursing Assess ONCE Comment: Protocol Order Physician Instructions: Greater than 3 points order RT Admission Screen Reason For Exam: Triggered on Admission Diagnosis: GI bleed Diagnosis: GI bleed Pneumonia: No Home O2: Yes Asthma: No CHF: No Home CPAP/BIPAP: No Home Nebs/MDI: Yes Total Points: 10 Smoking Cessation Education ONCE Comment: Diagnosis: GI bleed Smoking Status: Current every day smoker How long have you smoked: 50 years Have you smoked in the past 12 months: Yes Approximately how many cigarettes per day: 10 Do you dip or chew tobacco: No Discharge Exam General Appearance: no apparent distress, alert Neurologic Exam: alert, oriented x 3, cooperative, normal mood/affect, nml cere bellar function, sensation nml, No motor deficits Eye Exam: PERRL, EOMI, eyes nml inspection Ears, Nose, Throat Exam: normal ENT inspection, pharynx normal, moist mucous membranes Neck Exam: normal inspection, non-tender, supple, full range of motion Respiratory Exam: normal breath sounds, lungs clear, No respiratory distress Cardiovascular Exam: regular rate/rhythm, normal heart sounds Gastrointestinal/Abdomen Exam: soft, No tenderness, No mass Male Genitalia Exam: deferred Rectal Exam: deferred Back Exam: normal inspection, normal range of motion, No CVA tenderness, No vertebral tenderness Extremity Exam: normal inspection, normal range of motion Skin Exam: normal color, warm, dry Wound Assessment: Skin/Wound Assessment Wound/Incision Assessment Start: 09/09/22 00:31 Text: Status: Active Freq: Q6H Protocol: Document 09/10/22 06:00 GRISEL (Rec: 09/10/22 06:38 KX [id number]) Wound/Incision Assessment Coccyx Wound Assessment Shift Assessment Wound Type Pressure Ulcer Wound Stage Stage II Drainage Amount None General Appearance Open to air,Clean/Dry,Reddened Length (cm) (cm) 1 Width (cm) (cm) 1 Depth (cm) (cm) 0 Wound Bed Greatest Portion Yellow ([place]),Black ([place]) Surrounding Tissue [place] Comment barrier cream applied Wound Photo Photo Taken Yes Date: 09/09/22 Time: 05:00 Final Diagnosis/Problem List - Final Discharge Diagnosis/Problem (1) GI bleeding Current Visit: Yes Status: Resolved Code(s): K92.2 - GASTROINTESTINAL HEMORRHAGE, UNSPECIFIED (2) Lung cancer, main bronchus Current Visit: Yes Status: Chronic Code(s): C34.00 - MALIGNANT NEOPLASM OF UNSPECIFIED MAIN BRONCHUS (3) Anemia Current Visit: Yes Status: Chronic Code(s): D64.9 - ANEMIA, UNSPECIFIED - Discharge Discharge Date: 09/10/22 Disposition: Home, Self-Care Condition: Stable Prescriptions: New Diltiazem HCl [Diltiazem 24Hr ER] 180 mg PO DAILY #30 cap Famotidine 20 mg [Pepcid 20 MG] 20 mg PO BID #60 tablet PANTOPRAZOLE 40 mg Tablet [Protonix 40MG Tablet] 40 mg PO QAM #30 tab Nicotine 21 mg [Nicoderm CQ 21 MG] 21 mg TOP DAILY 30 Days #30 patch Continue Albuterol Common Canister [Ventolin Common Canister] 2 puff PO DAILY PRN PRN Reason: Shortness Of Breath Albuterol 2.5 mg/3 ml Neb [Proventil 2.5 mg/3 ml Neb] 2.5 mg IH Q6H #25 unit Morphine Sulfate [Morphine Sulfate ER] 15 mg PO Q12H Prochlorperazine Maleate 5 mg* [Compazine 5 MG] 10 mg PO BID PRN PRN Reason: Nausea Hydrocodone/Acetaminophen [Hydrocodone-Acetamin 5-325 mg] 1 tab PO Q4H PRN PRN Reason: Pain Triamterene/Hydrochlorothiazid [Triamterene-Hctz 37.5-25 mg Tb] 1 each PO DAILY Fluticasone/Umeclidin/Vilanter [Trelegy Ellipta 100-62.5-25] 1 puff IH DAILY Venlafaxine HCl [Venlafaxine HCl ER] 75 mg PO DAILY Discontinued Apixaban [Eliquis 5 mg Tablet] 5 mg PO BID #60 tablet Instructions: Gastrointestinal Bleeding Follow up with: ELIUD DURON MD [Primary Care Provider] - 09/17/22 (patient has an appointment already for Sep 17.)
== END 2022-09-10 13:14 | disposition home health service (06) ==
LOC: ED 20:45 → MED SURG 23:29
PROVIDERS: ADMIT General Practice; ATTEND General Practice
DX: K92.2 Gastrointestinal hemorrhage, unspecified (principal); C34.00 Malignant neoplasm of unspecified main bronchus; D64.9 Anemia, unspecified; L89.152 Pressure ulcer of sacral region, stage 2; Z79.899 Other long term (current) drug therapy; Z20.828 Contact with and (suspected) exposure to other viral communicable diseases; Z72.0 Tobacco use
CPT/HCPCS: 0241U; 36000; 36415; 36430; 80048; 80053; 84134; 85025; 86850; 86900; 86901; 86922; 94640; 94760; 96360; 96374; 99284; 99291; G0378; P9016; J1940; J2270; J7609; A9270-GY

== ENCOUNTER 2022-09-13 00:55 | Observation (INO) | payer MEDICARE ==
[2022-09-13] MEDS ORDERED: Sodium Chloride 0.9% 1000 ML 1,000 ML IV STA (01:04)
[2022-09-13] MEDS ORDERED: Zofran 4 MG/2 ML VIAL IV ONE (01:04)
[2022-09-13] MEDS ORDERED: PROTONIX 40 MG IV IV ONE ×2 (01:04→01:37)
--- NOTE | 2022-09-13 01:24 | ERPHSYRPT ---
- History of Present Illness Time Seen by Provider: 09/13/22 01:10 Source: patient Exam Limitations: no limitations Patient Subjective Stated Complaint: pt states he has been having dark stools for the last 2 days. states he was just discharged with gi bleed and got 3 units of blood Triage Nursing Assessment: pt alert and oriented, answers questions approp. pt [facility]. respirations nonlabored. o2 on at 4l per nc. abd soft. pt reports tenderness with palpation. bowel sounds present x4. no stool at this time. heart rate 130's to 140's on monitor. Physician History: Patient here with lower GI bleed. Patient does have a history of lower GI bleeds. Recent admission 3 days ago for similar complaints. Patient has a history of metastatic lung cancer. Currently undergoing treatment, port in place. States that he started getting dark and tarry stools earlier today. Had a recent drop in his hemoglobin. He felt more weak, unwell. Therefore presents to the emergency department. Timing/Duration: other (acute on chronic ) Severity: moderate Modifying Factors: Improves With: other Associated Symptoms: nausea, other (No acute abdominal pain, abdominal rigidity. Patient is tachycardic ) Allergies/Adverse Reactions: bee venom protein (honey bee) Allergy (Verified 09/13/22 00:58) Home Medications: Albuterol Common Canister [Ventolin Common Canister] 2 puff PO DAILY PRN 06/09/20 [History] Hydrocodone/Acetaminophen [Hydrocodone-Acetamin 5-325 mg] 1 tab PO Q4H PRN 08/09/22 [History] Morphine Sulfate [Morphine Sulfate ER] 15 mg PO Q12H 08/09/22 [History] Prochlorperazine Maleate 5 mg* [Compazine 5 MG] 10 mg PO BID PRN 08/09/22 [History] Fluticasone/Umeclidin/Vilanter [Trelegy Ellipta 100-62.5-25] 1 puff IH DAILY 09/08/22 [History] Triamterene/Hydrochlorothiazid [Triamterene-Hctz 37.5-25 mg Tb] 1 each PO DAILY 09/08/22 [History] Venlafaxine HCl [Venlafaxine HCl ER] 75 mg PO DAILY 09/08/22 [History] Hx Tetanus, Diphtheria Vaccination/Date Given: No (unsure) Hx Influenza Vaccination/Date Given: Yes Hx Pneumococcal Vaccination/Date Given: Yes Immunizations Up to Date: No Travel Risk - International Travel Have you traveled outside of the country in past 3 weeks: No - Coronavirus Screening Are you exhibiting any of the following symptoms?: No Close contact with a COVID-19 positive Pt in past 14-21 Days: No - Vaccine Status Have you recieved a Covid-19 vaccination: Yes Term[employer]: Moderna - Vaccination Dates Date of 2cond Vaccination (if applicable): UNK Dates if Unknown: UNK - Review of Systems Constitutional: No Fever, No Chills Eyes: No Symptoms Ears, Nose, & Throat: No Symptoms Respiratory: No Cough, No Dyspnea Cardiac: No Chest Pain, No Edema, No Syncope Abdominal/Gastrointestinal: Other (Lower GI bleed in the setting of cancer), No Abdominal Pain, No Nausea, No Vomiting, No Diarrhea Genitourinary Symptoms: No Dysuria Musculoskeletal: No Back Pain, No Neck Pain Skin: No Rash Neurological: No Dizziness, No Focal Weakness, No Sensory Changes Psychological: No Symptoms Endocrine: No Symptoms All Other Systems: Reviewed and Negative - Past Medical History Pertinent Past Medical History: Yes Neurological History: Stroke ENT History: No Pertinent History Cardiac History: Other Respiratory History: COPD, Lung Cancer Endocrine Medical History: No Pertinent History Musculoskeletal History: No Pertinent History GI Medical History: No Pertinent History History: No Pertinent History Psycho-Social History: Anxiety, Panic Disorder Male Reproductive Disorders: No Pertinent History Other Medical History: surgery x 3 to right shoulder;. stage IV lung cancer - Past Surgical History Past Surgical History: Yes Neuro Surgical History: No Pertinent History Cardiac: No Pertinent History Respiratory: No Pertinent History Gastrointestinal: Hernia Repair Genitourinary: No Pertinent History Musculoskeletal: Orthopedic Surgery Male Surgical History: No Pertinent History Other Surgical History: TONSILS. EXPLORATORY ABD SURGURY, shoulder surgery , knee , both hands. rt lower lobectomy - Social History Smoking Status: Current every day smoker How long have you smoked: 50 years Exposure to second hand smoke: Yes Drug Use: none Patient Lives Alone: Yes Significant Family History: no pertinent family hx - Nursing Vital Signs Nursing Vital Signs: Initial Vital Signs Temperature 98.5 F 09/13/22 00:58 Pulse Rate 146 H 09/13/22 00:58 Respiratory Rate 18 09/13/22 00:58 Blood Pressure 134/95 09/13/22 00:58 O2 Sat by Pulse Oximetry 95 09/13/22 00:58 Pain Scale Pain Intensity 10 - Physical Exam General Appearance: no apparent distress, alert Eye Exam: PERRL/EOMI, eyes nml inspection Ears, Nose, Throat Exam: normal ENT inspection, TMs normal, pharynx normal, moist mucous membranes Neck Exam: normal inspection, non-tender, supple, full range of motion Respiratory Exam: normal breath sounds, lungs clear, other (Patient to be years to be a chronic COPD year. Thin, rail chest. Minimal wheezes throughout most likely at baseline. Port in place left upper chest.), No respiratory distress Cardiovascular Exam: regular rate/rhythm, normal heart sounds, normal peripheral pulses Gastrointestinal/Abdomen Exam: soft, normal bowel sounds, other (Abdomen is soft, nontender, and no guarding. No rebound, no rigidity, not an acute abdomen.), No tenderness, No mass Back Exam: normal inspection, normal range of motion, No CVA tenderness, No vertebral tenderness Extremity Exam: normal inspection, normal range of motion, pelvis stable Neurologic Exam: alert, oriented x 3, cooperative, normal mood/affect, nml cerebellar function, nml station & gait, sensation nml, No motor deficits Skin Exam: normal color, warm, dry, No rash Lymphatic Exam: No adenopathy SpO2: 95 - Course Nursing assessment & vital signs reviewed: Yes Ordered Tests: Active Orders 24 hr Category Date Time Status Biscuit Packer STAT Care 09/13/22 01:05 Active Code Status Order ROUTINE Care 09/13/22 02:07 Active EKG-ER Only STAT Care 09/13/22 01:08 Active IV Care Q6H Care 09/13/22 02:07 Active IV Insertion STAT Care 09/13/22 01:04 Active IV Insertion-2nd Peripheral STAT Care 09/13/22 01:[address] in Observation ROUTINE Care 09/13/22 02:07 Active Telemetry q4h Care 09/13/22 02:07 Active CBC W DIFF AM.LAB Lab 09/13/22 04:00 Ordered CBC W DIFF Stat Lab 09/13/22 01:25 Completed CMP AM.LAB Lab 09/13/22 04:00 Ordered CMP Stat Lab 09/13/22 01:25 Completed FECAL OCCULT BLOOD - SCREENING Stat Lab 09/13/22 01:04 Ordered HEMOGLOBIN AND HEMATOCRIT Q6H Lab 09/13/22 12:00 Ordered HEMOGLOBIN AND HEMATOCRIT Q6H Lab 09/13/22 18:00 Ordered Lactic Acid Stat Lab 09/13/22 01:15 Completed PROTIME WITH INR Stat Lab 09/13/22 01:25 Completed UA W/RFX CULTURE Stat Lab 09/13/22 Ordered VENOUS BLOOD GAS AM.LAB Lab 09/13/22 04:00 Ordered Medication Summary Generic Name Dose Route Start Last Admin Trade Name Frecampos PRN Reason Stop Dose Admin Potassium Chloride 100 mls @ 50 mls/hr 09/13/22 02:15 Potassium Chloride 20 Meq In Water 100ml IV 09/13/22 06:14 Q2H ZHOU Potassium Chloride/Sodium Chloride 1,000 mls @ 100 mls/hr 09/13/22 02:30 Sodium Chloride 0.9% W/ 40 Meq Kcl 1000ml IV 10/13/22 02:29 .Q10H ZHOU Morphine Sulfate 2 mg 09/13/22 02:07 Morphine Sulfate 2 Mg/Ml Inj IV 09/18/22 02:06 Q4H PRN PRN PAIN Ondansetron HCl 4 mg 09/13/22 02:07 Ondansetron Hcl 4 Mg/2 Ml Vial IV 10/13/22 02:06 Q6H PRN PRN NAUSEA/VOMITING Discontinued Medications Generic Name Dose Route Start Last Admin Trade Name Frecampos PRN Reason Stop Dose Admin Sodium Chloride 1,000 mls @ 999 mls/hr 09/13/22 01:04 09/13/22 01:41 Sodium Chloride 0.9% 1000 Ml IV 09/13/22 02:04 999 mls/hr .Q1H1M STA Administration Sodium Chloride Confirm 09/13/22 01:37 Sodium Chloride 0.9% 1000 Ml Administered 09/13/22 01:38 Dose 1,000 mls @ ud .ROUTE .STK-MED ONE Ondansetron HCl 4 mg 09/13/22 01:04 09/13/22 01:41 Ondansetron Hcl 4 Mg/2 Ml Vial IV 09/13/22 01:05 4 mg STAT ONE Administration Ondansetron HCl Confirm 09/13/22 01:36 Ondansetron Hcl 4 Mg/2 Ml Vial Administered 09/13/22 01:37 Dose 4 mg .ROUTE .STK-MED ONE Pantoprazole Sodium 40 mg 09/13/22 01:04 09/13/22 01:41 Pantoprazole 40 Mg Vial IV 09/13/22 01:05 40 mg STAT ONE Administration Pantoprazole Sodium Confirm 09/13/22 01:37 Pantoprazole 40 Mg Vial Administered 09/13/22 01:38 Dose 40 mg IV .STK-MED ONE Lab/Rad Data: Laboratory Result Diagrams 09/13/22 01:25 09/13/22 01:25 Laboratory Results 09/13/22 09/13/22 09/13/22 Range/Units 01:25 01:25 01:25 WBC (4.0-10.5) x10^3/uL RBC (4.1-5.6) x10^6/uL Hgb (12.5-18.0) g/dL Hct (42-50) % MCV (78-100) fL MCH (26-32) pg MCHC (32-36) g/dL RDW (11.5-14.0) % Plt Count (150-450) x10^3/uL Gran % (36.0-66.0) % Immature Gran % (Auto) (0.00-0.4) % Nucleat RBC Rel Count (0.00-0.1) % Eos # (Auto) (0-0.5) x10^3/uL Immature Gran # (Auto) (0.00-0.03) x10^3u/L Absolute Lymphs (auto) (1.0-4.6) x10^3/uL Absolute Monos (auto) (0.0-1.3) x10^3/uL Absolute Nucleated RBC (0.00-0.01) x10^3u/L Lymphocytes % (24.0-44.0) % Monocytes % (0.0-12.0) % Eosinophils % (0.00-5.0) % Basophils % (0.0-0.4) % Absolute Granulocytes (1.4-6.9) x10^3/uL Basophils # (0-0.4) x10^3/uL PT 12.8 H (9.4-12.5) SECONDS INR 1.23 (0.8-3.0) Sodium 128 L (137-145) mmol/L Potassium 3.3 L (3.5-5.1) mmol/L Chloride 92 L (98-107) mmol/L Carbon Dioxide 30 (22-30) mmol/L Anion Gap 9.5 (5-15) MEQ/L BUN 23 H (9-20) mg/dL Creatinine 0.97 (0.66-1.25) mg/dL Estimated GFR > 60.0 ML/MIN Glucose 96 (74-106) mg/dL Lactic Acid (0.4-2.0) Calcium 7.8 L (8.4-10.2) mg/dL Total Bilirubin 1.00 (0.2-1.3) mg/dL AST 19 (17-59) U/L ALT 18 (0-50) U/L Alkaline Phosphatase 404 H (38-126) U/L Serum Total Protein 6.0 L (6.3-8.2) g/dL Albumin 2.8 L (3.5-5.0) g/dL ABO Group O Rh Factor POSITIVE Antibody Screen NEGATIVE (NEGATIVE) 09/13/22 09/13/22 Range/Units 01:25 01:15 WBC 6.5 (4.0-10.5) x10^3/uL RBC 3.96 L (4.1-5.6) x10^6/uL Hgb 10.5 L (12.5-18.0) g/dL Hct 32.7 L (42-50) % MCV 82.6 (78-100) fL MCH 26.5 (26-32) pg MCHC 32.1 (32-36) g/dL RDW 19.1 H (11.5-14.0) % Plt Count 38 L (150-450) x10^3/uL Gran % 89.4 H (36.0-66.0) % Immature Gran % (Auto) 0.3 (0.00-0.4) % Nucleat RBC Rel Count 0.0 (0.00-0.1) % Eos # (Auto) 0.02 (0-0.5) x10^3/uL Immature Gran # (Auto) 0.02 (0.00-0.03) x10^3u/L Absolute Lymphs (auto) 0.19 L (1.0-4.6) x10^3/uL Absolute Monos (auto) 0.45 (0.0-1.3) x10^3/uL Absolute Nucleated RBC 0.00 (0.00-0.01) x10^3u/L Lymphocytes % 2.9 L (24.0-44.0) % Monocytes % 6.9 (0.0-12.0) % Eosinophils % 0.3 (0.00-5.0) % Basophils % 0.2 (0.0-0.4) % Absolute Granulocytes 5.83 (1.4-6.9) x10^3/uL Basophils # 0.01 (0-0.4) x10^3/uL PT (9.4-12.5) SECONDS INR (0.8-3.0) Sodium (137-145) mmol/L Potassium (3.5-5.1) mmol/L Chloride (98-107) mmol/L Carbon Dioxide (22-30) mmol/L Anion Gap (5-15) MEQ/L BUN (9-20) mg/dL Creatinine (0.66-1.25) mg/dL Estimated GFR ML/MIN Glucose (74-106) mg/dL Lactic Acid 1.6 (0.4-2.0) Calcium (8.4-10.2) mg/dL Total Bilirubin (0.2-1.3) mg/dL AST (17-59) U/L ALT (0-50) U/L Alkaline Phosphatase (38-126) U/L Serum Total Protein (6.3-8.2) g/dL Albumin (3.5-5.0) g/dL ABO Group Rh Factor Antibody Screen (NEGATIVE) - Progress Progress: improved Progress Note: 09/13/22 01:26 Plan for work-up for GI bleed. We will type and screen, basic labs, fluids, give a PPI, Zofran. Will consider imaging should anything return abnormal. 09/13/22 02:31 Patient's H&H is stable tonight. Does have some minor electrolyte abnormalities including a low potassium, low sodium. Patient's abdomen continues to be soft. I did discuss this all with the patient. Given everything we will admit the patient for serial H&H's, continued close monitoring, potassium repletion, electrolyte rebalancing. I did discuss over the phone with on-call physician, Dr. Shahid. She did agree to admit the patient. She requested serial H&H's and telemetry. Feel this is reasonable. Plan for admission to the hospital. Patient has become more hemodynamically stable. He is not tachycardic. States this is most likely due to albuterol treatment prior to arrival. I do not believe this to be reflexive tachycardia from a low hemoglobin. Patient is not hypotensive. No active vomiting or nausea. Discussed with : Domingo Will see patient in: hospital (observation) Counseled pt/family regarding: lab results, diagnosis, need for follow-up, rad r esults, smoking cessation - Departure Departure Disposition: Observation Clinical Impression: GI bleed, Failure to thrive Condition: Stable Critical Care Time: No Referrals: ELIUD DURON MD [Primary Care Provider] - Follow up/PCP as directed
[2022-09-13 01:31] LABS: Absolute Neutrophil Ct (ANC) 5.83 x10^3/uL (1.4-6.9); Basophil (Absolute #) 0.01 x10^3/uL (0-0.4); Eosinophil % 0.3 % (0.00-5.0); Eosinophil (Absolute #) 0.02 x10^3/uL (0-0.5); Hematocrit 32.7 % (42-50); Hemoglobin 10.5 g/dL (12.5-18.0); Lymphocyte (Absolute #) 0.19 x10^3/uL (1.0-4.6); Lymphocytes % 2.9 % (24.0-44.0); Mean Cell Volume 82.6 fL (78-100); Mean Corpuscular Hemoglobin 26.5 pg (26-32); Mean Corpuscular Hgb Concent. 32.1 g/dL (32-36); Monocyte (Absolute #) 0.45 x10^3/uL (0.0-1.3); Monocytes % 6.9 % (0.0-12.0); Neutrophil % 89.4 % (36.0-66.0); Platelet Count 38 x10^3/uL (150-450); Red Blood Count 3.96 x10^6/uL (4.1-5.6); Red Cell Distribution Width 19.1 % (11.5-14.0); White Blood Count 6.5 x10^3/uL (4.0-10.5)
[2022-09-13] MEDS ORDERED: Zofran 4 MG/2 ML VIAL ONE (01:36)
[2022-09-13] MEDS ORDERED: Sodium Chloride 0.9% 1000 ML 1,000 ML ONE (01:37)
[2022-09-13 01:43] LABS: INR 1.23 (0.8-3.0); PROTIME 12.8 SECONDS (9.4-12.5)
[2022-09-13 01:44] LABS: ALBUMIN 2.8 g/dL (3.5-5.0); ALKALINE PHOSPHATASE 404 U/L (38-126); ANION GAP 9.5 MEQ/L (5-15); BLOOD UREA NITROGEN 23 mg/dL (9-20); CHLORIDE 92 mmol/L (98-107); Calcium 7.8 mg/dL (8.4-10.2); Carbon Dioxide 30 mmol/L (22-30); Creatinine 1 0.97 mg/dL (0.66-1.25); EST GLOMERULAR FILTRATION RATE > 60.0 ML/MIN; Glucose 96 mg/dL (74-106); Potassium 3.3 mmol/L (3.5-5.1); SGOT/AST 19 U/L (17-59); SGPT/ALT 18 U/L (0-50); SODIUM 128 mmol/L (137-145)
[2022-09-13 02:11] LABS: ABO TYPING O; Antibody Screen NEGATIVE (NEGATIVE); RH TYPING POSITIVE
[2022-09-13] MEDS: POTASSIUM CHLORIDE 20 mEq IN WATER 100ML 100 ML IV SCH ×2 (02:32→04:29)
[2022-09-13 02:57] LABS: INFLUENZA A NEGATIVE (NEGATIVE); INFLUENZA B NEGATIVE (NEGATIVE); RESPIRATORY SYNCTIAL VIRUS NEGATIVE (Negative); SARS-CoV-2 Xpert Express NEGATIVE (NEGATIVE)
[2022-09-13] MEDS: MORPHINE SULFATE 2 MG INJ IV PRN ×4 (04:25→22:55)
[2022-09-13] MEDS: SODIUM CHLORIDE 0.9% W/ 40 mEq KCL 1000ML 1,000 ML IV SCH ×2 (04:30→16:46)
[2022-09-13] MEDS ORDERED: VENTOLIN COMMON CANISTER IH PRN ×2 (04:32→09:16)
[2022-09-13] MEDS: DUONEB 0.5-3 MG/3 ml Neb IH SCH ×4 (05:29→20:04)
[2022-09-13] MEDS: Advair Hfa 115/21 Common canister IH SCH ×2 (05:32→20:10)
[2022-09-13 07:14] LABS: Appearance CLEAR (CLEAR); Bilirubin SMALL (NEGATIVE); Dipstick done @ ? MAIN LAB; Glucose NEGATIVE (NEGATIVE); Ketones SMALL-15 (NEGATIVE); Nitrite NEGATIVE (NEGATIVE); Protein,Urine Dip 30 (Negative); RBC NEGATIVE Ery/ul (0-5); Urine Cultured Indicated? NO; Urobilinogen 2 mg/dL (0-1)
[2022-09-13] MEDS: Zofran 4 MG/2 ML VIAL IV PRN ×2 (08:10→21:56)
[2022-09-13] MEDS: Cardizem CD PO SCH (08:44)
[2022-09-13 08:48] LABS: Absolute Neutrophil Ct (ANC) 4.45 x10^3/uL (1.4-6.9); Basophil (Absolute #) 0 x10^3/uL (0-0.4); Eosinophil % 0.2 % (0.00-5.0); Eosinophil (Absolute #) 0.01 x10^3/uL (0-0.5); Hematocrit 29.9 % (42-50); Hemoglobin 9.4 g/dL (12.5-18.0); Mean Cell Volume 83.5 fL (78-100); Mean Corpuscular Hemoglobin 26.3 pg (26-32); Mean Corpuscular Hgb Concent. 31.4 g/dL (32-36); Mean Platelet Volume 10.7 fL (7.5-11.0); Monocyte (Absolute #) 0.32 x10^3/uL (0.0-1.3); Monocytes % 6.5 % (0.0-12.0); Neutrophil % 91.1 % (36.0-66.0); Platelet Count 36 x10^3/uL (150-450); Red Blood Count 3.58 x10^6/uL (4.1-5.6); Red Cell Distribution Width 19.4 % (11.5-14.0); White Blood Count 4.9 x10^3/uL (4.0-10.5)
[2022-09-13 08:50] LABS: VBG BASE EXCESS 3.3 (-2.0-2.0); VBG CARBOXYHEMOGLOBIN 3.6 % T HGB (0.0-6.9); VBG HCO3- 26.7 meq/L (22-28); VBG HEMOGLOBIN 10.1; VBG O2 SATURATION 90.7 (95-100); VBG POTASSIUM 4.1 (3.5-5.1); VBG pH 7.49 (7.32-7.42)
[2022-09-13] MEDS ORDERED: Compazine 5 MG PO PRN (09:16)
[2022-09-13 09:19] LABS: ALBUMIN 2.6 g/dL (3.5-5.0); ALKALINE PHOSPHATASE 376 U/L (38-126); ANION GAP 5.1 MEQ/L (5-15); BLOOD UREA NITROGEN 23 mg/dL (9-20); CHLORIDE 100 mmol/L (98-107); Calcium 7.6 mg/dL (8.4-10.2); Carbon Dioxide 29 mmol/L (22-30); Creatinine 1 0.98 mg/dL (0.66-1.25); EST GLOMERULAR FILTRATION RATE > 60.0 ML/MIN; Glucose 135 mg/dL (74-106); Potassium 4.1 mmol/L (3.5-5.1); SGOT/AST 21 U/L (17-59); SGPT/ALT 18 U/L (0-50); SODIUM 130 mmol/L (137-145); Total Protein 5.9 g/dL (6.3-8.2)
[2022-09-13] MEDS ORDERED: PROVENTIL 2.5 MG/3 ML NEB IH SCH (09:30)
[2022-09-13] MEDS ORDERED: NON-FORMULARY ITEM (Morphine Sulfate [Morphine Sulfate Er] 30 MG Tablet.Er) PO SCH (09:30)
[2022-09-13] MEDS: MSIR 15 MG PO SCH ×2 (09:35→21:56)
[2022-09-13] MEDS: AMITRIPTYLINE 25 MG TABLET PO SCH (09:35)
[2022-09-13] MEDS: Pepcid 20 MG PO SCH ×2 (09:35→21:56)
[2022-09-13] MEDS: Nicoderm CQ 21 MG TOP SCH (09:40)
[2022-09-13] MEDS ORDERED: MEDICATION INTERVENTION MC SCH (09:45)
[2022-09-13] MEDS ORDERED: NON-FORMULARY ITEM (Fluticasone/Umeclidin/Vilanter [Trelegy Ellipta 100-62.5-25] 1 EACH Bl IH SCH (10:00)
[2022-09-13] MEDS ORDERED: NON-FORMULARY ITEM (Venlafaxine Hcl [Venlafaxine Hcl Er] 75 MG Tab.Er.24) PO SCH (10:00)
[2022-09-13] MEDS ORDERED: Protonix 40MG Tablet PO SCH (10:00)
[2022-09-13 10:42] LABS: Slide Review 1 YES
[2022-09-13] MEDS: TYLENOL 325 MG PO PRN ×2 (11:32→21:57)
[2022-09-13] MEDS: Effexor XR 75 MG PO SCH (11:32)
--- NOTE | 2022-09-13 13:52 | PCM.HP ---
History of Present Illness - Chief Complaint Chief Complaint: failure to thrive History of Present Illness: is a 66 year old male patient with stage 4 lung cancer and Hx recent GI bleed requiring transfusion at [facility]. Patient presented to ER by Ambulance C/O recurrence black stool and weakness. Hgb 10.2 in ER and 9.4 after overnight hydration . I spoke to Patient's Oncologist, Dr Tena who confirmed patient has received 2 doses of Ketruda but will need to hold treatment for now due to cachectic state. Patient's sister ,JOSEFINA is at the bedside. Patient is resting after pain med. - Review of Systems Constitutional: Weakness Eyes: No Symptoms Ears, Nose, & Throat: No Symptoms Respiratory: Short Of Breath Cardiac: No Symptoms Abdominal/Gastrointestinal: Appetite Changes Genitourinary Symptoms: No Symptoms Musculoskeletal: Back Pain (mets to vertebrea) Skin: No Symptoms Neurological: Irritability Psychological: Anxiety Endocrine: No Symptoms Hematologic/Lymphatic: Anemia Medications & Allergies Home Medications: Home Medication List Albuterol Common Canister [Ventolin Common Canister] 2 puff PO DAILY PRN 06/09/20 [History Confirmed 09/13/22] Albuterol 2.5 mg/3 ml Neb [Proventil 2.5 mg/3 ml Neb] 2.5 mg IH Q6H #25 unit 05/05/22 [Rx Confirmed 09/13/22] Hydrocodone/Acetaminophen [Hydrocodone-Acetamin 5-325 mg] 1 tab PO Q4H PRN 08/09/22 [History Confirmed 09/13/22] Morphine Sulfate [Morphine Sulfate ER] 15 mg PO Q12H 08/09/22 [History Confirmed 09/13/22] Prochlorperazine Maleate 5 mg* [Compazine 5 MG] 10 mg PO BID PRN 08/09/22 [History Confirmed 09/13/22] Fluticasone/Umeclidin/Vilanter [Trelegy Ellipta 100-62.5-25] 1 puff IH DAILY 09/08/22 [History Confirmed 09/13/22] Triamterene/Hydrochlorothiazid [Triamterene-Hctz 37.5-25 mg Tb] 1 each PO DAILY 09/08/22 [History Confirmed 09/13/22] Venlafaxine HCl [Venlafaxine HCl ER] 75 mg PO DAILY 09/08/22 [History Confirmed 09/13/22] Diltiazem HCl [Diltiazem 24Hr ER] 180 mg PO DAILY #30 cap 09/10/22 [Rx Confirmed 09/13/22] Famotidine 20 mg [Pepcid 20 MG] 20 mg PO BID #60 tablet 09/10/22 [Rx Confirmed 09/13/22] Nicotine 21 mg [Nicoderm CQ 21 MG] 21 mg TOP DAILY 30 Days #30 patch 09/10/22 [Rx Confirmed 09/13/22] PANTOPRAZOLE 40 mg Tablet [Protonix 40MG Tablet] 40 mg PO QAM #30 tab 09/10/22 [Rx Confirmed 09/13/22] Amitriptyline HCl 25 mg [Amitriptyline 25 mg Tablet] 25 mg PO DAILY 09/13/22 [History Confirmed 09/13/22] Allergies/Adverse Reactions: Allergies Allergy/AdvReac Type Severity Reaction Status Date / Time bee venom protein (honey bee) Allergy Verified 09/13/22 00:58 - Past Medical History Past Medical History: Yes Neurological History: Stroke ENT History: No Pertinent History Cardiac History: Other Respiratory History: COPD, Lung Cancer Endocrine Medical History: No Pertinent History Musculoskelatal History: No Pertinent History GI Medical History: No Pertinent History History: No Pertinent History Pyscho-Social History: Anxiety, Panic Disorder Male Reproductive Disorders: No Pertinent History Comment: surgery x 3 to right shoulder;. stage IV lung cancer - Past Surgical History Past Surgical History: Yes Neuro Surgical History: No Pertinent History Cardiac History: No Pertinent History Respiratory Surgery: No Pertinent History GI Surgical History: Hernia Repair Genitourinary Surgical Hx: No Pertinent History Musculskeletal Surgical Hx: Orthopedic Surgery Male Surgical History: No Pertinent History Other Surgical History: TONSILS. EXPLORATORY ABD SURGURY, shoulder surgery , knee , both hands. rt lower lobectomy - Social History Smoking Status: Current every day smoker How long have you smoked: 50 years Exposure to second hand smoke: Yes Alcohol: None Drug Use: none Significant Family History: no pertinent family hx - Physical Exam Vital Signs: Vital Signs - 24 hr Temp Pulse Resp BP Pulse Ox 09/13/22 11:31 101.2 F 148 H 27 H 141/98 93 L 09/13/22 11:13 137 H 16 93 L 09/13/22 07:53 97.4 F 62 17 127/80 97 09/13/22 05:32 105 H 18 97 09/13/22 04:42 97.3 F 105 H 18 130/81 97 09/13/22 02:56 110 H 18 133/99 97 09/13/22 02:33 95 09/13/22 00:58 98.5 F 146 H 18 134/95 95 General Appearance: lethargy, cachetic Neurologic Exam: other (awakens to name but goes back sleep) Ears, Nose, Throat Exam: normal ENT inspection Neck Exam: normal inspection Respiratory Exam: diminished breath sounds, other (O2/NC) Cardiovascular Exam: tachycardia Gastrointestinal/Abdomen Exam: soft (nontender) Rectal Exam: not done Back Exam: other (resting comfortably on his back) Skin Exam: other (dusky color) Results - Labs Lab/Micro Results: Lab Results-Last 24 Hours 09/13/22 09/13/22 09/13/22 Range/Units 01:15 01:25 01:25 WBC 6.5 (4.0-10.5) x10^3/uL RBC 3.96 L (4.1-5.6) x10^6/uL Hgb 10.5 L (12.5-18.0) g/dL Hct 32.7 L (42-50) % MCV 82.6 (78-100) fL MCH 26.5 (26-32) pg MCHC 32.1 (32-36) g/dL RDW 19.1 H (11.5-14.0) % Plt Count 38 L (150-450) x10^3/uL MPV (7.5-11.0) fL Gran % 89.4 H (36.0-66.0) % Immature Gran % (Auto) 0.3 (0.00-0.4) % Nucleat RBC Rel Count 0.0 (0.00-0.1) % Eos # (Auto) 0.02 (0-0.5) x10^3/uL Immature Gran # (Auto) 0.02 (0.00-0.03) x10^3u/L Absolute Lymphs (auto) 0.19 L (1.0-4.6) x10^3/uL Absolute Monos (auto) 0.45 (0.0-1.3) x10^3/uL Absolute Nucleated RBC 0.00 (0.00-0.01) x10^3u/L Lymphocytes % 2.9 L (24.0-44.0) % Monocytes % 6.9 (0.0-12.0) % Eosinophils % 0.3 (0.00-5.0) % Basophils % 0.2 (0.0-0.4) % Absolute Granulocytes 5.83 (1.4-6.9) x10^3/uL Basophils # 0.01 (0-0.4) x10^3/uL PT (9.4-12.5) SECONDS INR (0.8-3.0) pO2/FiO2 Ratio % VBG pH (7.32-7.42) VBG pCO2 at Pat Temp (42-55) mm/Hg VBG pO2 at Pat Temp (25-40) mm/Hg VBG HCO3 (22-28) meq/L VBG O2 Sat ([place]) (95-100) VBG Base Excess (-2.0-2.0) VBG Hemoglobin VBG Carboxyhemoglobin (0.0-6.9) % T HGB POC Potassium (3.5-5.1) Sodium 128 L (137-145) mmol/L Potassium 3.3 L (3.5-5.1) mmol/L Chloride 92 L (98-107) mmol/L Carbon Dioxide 30 (22-30) mmol/L Anion Gap 9.5 (5-15) MEQ/L BUN 23 H (9-20) mg/dL Creatinine 0.97 (0.66-1.25) mg/dL Estimated GFR > 60.0 ML/MIN Glucose 96 (74-106) mg/dL Lactic Acid 1.6 (0.4-2.0) Calcium 7.8 L (8.4-10.2) mg/dL Total Bilirubin 1.00 (0.2-1.3) mg/dL AST 19 (17-59) U/L ALT 18 (0-50) U/L Alkaline Phosphatase 404 H (38-126) U/L Serum Total Protein 6.0 L (6.3-8.2) g/dL Albumin 2.8 L (3.5-5.0) g/dL Urinalys Dipstick Clnc Urine Color (YELLOW) Urine Appearance (CLEAR) Urine pH (5-6) Ur Specific [place] (1.005-1.025) POC Urine Protein Conf (Negative) Urine Ketones (NEGATIVE) Urine Nitrite (NEGATIVE) Urine Bilirubin (NEGATIVE) Urine Urobilinogen (0-1) mg/dL Urine Leukocytes (NEGATIVE) Urine WBC (Auto) (0-5) /HPF Urine RBC (Auto) (0-2) /HPF U Hyaline Cast (Auto) (0-2) /LPF U Epithel Cells (Auto) (FEW) /HPF Urine Bacteria (Auto) (NEGATIVE) /HPF Urine RBC (0-5) Todd/ul Ur Culture Indicated? Urine Glucose (NEGATIVE) mg/dL Influenza Type A Ag (NEGATIVE) Influenza Type B Ag (NEGATIVE) RSV (PCR) (Negative) SARS-CoV-2 (PCR) (NEGATIVE) Slides for Path Review ABO Group Rh Factor Antibody Screen (NEGATIVE) 09/13/22 09/13/22 09/13/22 Range/Units 01:25 01:25 02:19 WBC (4.0-10.5) x10^3/uL RBC (4.1-5.6) x10^6/uL Hgb (12.5-18.0) g/dL Hct (42-50) % MCV (78-100) fL MCH (26-32) pg MCHC (32-36) g/dL RDW (11.5-14.0) % Plt Count (150-450) x10^3/uL MPV (7.5-11.0) fL Gran % (36.0-66.0) % Immature Gran % (Auto) (0.00-0.4) % Nucleat RBC Rel Count (0.00-0.1) % Eos # (Auto) (0-0.5) x10^3/uL Immature Gran # (Auto) (0.00-0.03) x10^3u/L Absolute Lymphs (auto) (1.0-4.6) x10^3/uL Absolute Monos (auto) (0.0-1.3) x10^3/uL Absolute Nucleated RBC (0.00-0.01) x10^3u/L Lymphocytes % (24.0-44.0) % Monocytes % (0.0-12.0) % Eosinophils % (0.00-5.0) % Basophils % (0.0-0.4) % Absolute Granulocytes (1.4-6.9) x10^3/uL Basophils # (0-0.4) x10^3/uL PT 12.8 H (9.4-12.5) SECONDS INR 1.23 (0.8-3.0) pO2/FiO2 Ratio % VBG pH (7.32-7.42) VBG pCO2 at Pat Temp (42-55) mm/Hg VBG pO2 at Pat Temp (25-40) mm/Hg VBG HCO3 (22-28) meq/L VBG O2 Sat ([place]) (95-100) VBG Base Excess (-2.0-2.0) VBG Hemoglobin VBG Carboxyhemoglobin (0.0-6.9) % T HGB POC Potassium (3.5-5.1) Sodium (137-145) mmol/L Potassium (3.5-5.1) mmol/L Chloride (98-107) mmol/L Carbon Dioxide (22-30) mmol/L Anion Gap (5-15) MEQ/L BUN (9-20) mg/dL Creatinine (0.66-1.25) mg/dL Estimated GFR ML/MIN Glucose (74-106) mg/dL Lactic Acid (0.4-2.0) Calcium (8.4-10.2) mg/dL Total Bilirubin (0.2-1.3) mg/dL AST (17-59) U/L ALT (0-50) U/L Alkaline Phosphatase (38-126) U/L Serum Total Protein (6.3-8.2) g/dL Albumin (3.5-5.0) g/dL Urinalys Dipstick Clnc Urine Color (YELLOW) Urine Appearance (CLEAR) Urine pH (5-6) Ur Specific [place] (1.005-1.025) POC Urine Protein Conf (Negative) Urine Ketones (NEGATIVE) Urine Nitrite (NEGATIVE) Urine Bilirubin (NEGATIVE) Urine Urobilinogen (0-1) mg/dL Urine Leukocytes (NEGATIVE) Urine WBC (Auto) (0-5) /HPF Urine RBC (Auto) (0-2) /HPF U Hyaline Cast (Auto) (0-2) /LPF U Epithel Cells (Auto) (FEW) /HPF Urine Bacteria (Auto) (NEGATIVE) /HPF Urine RBC (0-5) Todd/ul Ur Culture Indicated? Urine Glucose (NEGATIVE) mg/dL Influenza Type A Ag NEGATIVE (NEGATIVE) Influenza Type B Ag NEGATIVE (NEGATIVE) RSV (PCR) NEGATIVE (Negative) SARS-CoV-2 (PCR) NEGATIVE (NEGATIVE) Slides for Path Review ABO Group O Rh Factor POSITIVE Antibody Screen NEGATIVE (NEGATIVE) 09/13/22 09/13/22 09/13/22 Range/Units 04:00 08:35 08:35 WBC 4.9 (4.0-10.5) x10^3/uL RBC 3.58 L (4.1-5.6) x10^6/uL Hgb 9.4 L (12.5-18.0) g/dL Hct 29.9 L (42-50) % MCV 83.5 (78-100) fL MCH 26.3 (26-32) pg MCHC 31.4 L (32-36) g/dL RDW 19.4 H (11.5-14.0) % Plt Count 36 L (150-450) x10^3/uL MPV 10.7 (7.5-11.0) fL Gran % 91.1 H (36.0-66.0) % Immature Gran % (Auto) 0.2 (0.00-0.4) % Nucleat RBC Rel Count 0.0 (0.00-0.1) % Eos # (Auto) 0.01 (0-0.5) x10^3/uL Immature Gran # (Auto) 0.01 (0.00-0.03) x10^3u/L Absolute Lymphs (auto) 0.10 L (1.0-4.6) x10^3/uL Absolute Monos (auto) 0.32 (0.0-1.3) x10^3/uL Absolute Nucleated RBC 0.00 (0.00-0.01) x10^3u/L Lymphocytes % 2.0 L (24.0-44.0) % Monocytes % 6.5 (0.0-12.0) % Eosinophils % 0.2 (0.00-5.0) % Basophils % 0.0 (0.0-0.4) % Absolute Granulocytes 4.45 (1.4-6.9) x10^3/uL Basophils # 0 (0-0.4) x10^3/uL PT (9.4-12.5) SECONDS INR (0.8-3.0) pO2/FiO2 Ratio 28.0 % VBG pH 7.49 H (7.32-7.42) VBG pCO2 at Pat Temp 35 L (42-55) mm/Hg VBG pO2 at Pat Temp 53 H (25-40) mm/Hg VBG HCO3 26.7 (22-28) meq/L VBG O2 Sat ([place]) 90.7 L (95-100) VBG Base Excess 3.3 H (-2.0-2.0) VBG Hemoglobin 10.1 VBG Carboxyhemoglobin 3.6 (0.0-6.9) % T HGB POC Potassium 4.1 (3.5-5.1) Sodium 130 L (137-145) mmol/L Potassium 4.1 D (3.5-5.1) mmol/L Chloride 100 (98-107) mmol/L Carbon Dioxide 29 (22-30) mmol/L Anion Gap 5.1 (5-15) MEQ/L BUN 23 H (9-20) mg/dL Creatinine 0.98 (0.66-1.25) mg/dL Estimated GFR > 60.0 ML/MIN Glucose 135 H (74-106) mg/dL Lactic Acid (0.4-2.0) Calcium 7.6 L (8.4-10.2) mg/dL Total Bilirubin 0.80 (0.2-1.3) mg/dL AST 21 (17-59) U/L ALT 18 (0-50) U/L Alkaline Phosphatase 376 H (38-126) U/L Serum Total Protein 5.9 L (6.3-8.2) g/dL Albumin 2.6 L (3.5-5.0) g/dL Urinalys Dipstick Clnc Urine Color (YELLOW) Urine Appearance (CLEAR) Urine pH (5-6) Ur Specific [place] (1.005-1.025) POC Urine Protein Conf (Negative) Urine Ketones (NEGATIVE) Urine Nitrite (NEGATIVE) Urine Bilirubin (NEGATIVE) Urine Urobilinogen (0-1) mg/dL Urine Leukocytes (NEGATIVE) Urine WBC (Auto) (0-5) /HPF Urine RBC (Auto) (0-2) /HPF U Hyaline Cast (Auto) (0-2) /LPF U Epithel Cells (Auto) (FEW) /HPF Urine Bacteria (Auto) (NEGATIVE) /HPF Urine RBC (0-5) Todd/ul Ur Culture Indicated? Urine Glucose (NEGATIVE) mg/dL Influenza Type A Ag (NEGATIVE) Influenza Type B Ag (NEGATIVE) RSV (PCR) (Negative) SARS-CoV-2 (PCR) (NEGATIVE) Slides for Path Review YES ABO Group Rh Factor Antibody Screen (NEGATIVE) 09/13/22 Range/Units Unknown WBC (4.0-10.5) x10^3/uL RBC (4.1-5.6) x10^6/uL Hgb (12.5-18.0) g/dL Hct (42-50) % MCV (78-100) fL MCH (26-32) pg MCHC (32-36) g/dL RDW (11.5-14.0) % Plt Count (150-450) x10^3/uL MPV (7.5-11.0) fL Gran % (36.0-66.0) % Immature Gran % (Auto) (0.00-0.4) % Nucleat RBC Rel Count (0.00-0.1) % Eos # (Auto) (0-0.5) x10^3/uL Immature Gran # (Auto) (0.00-0.03) x10^3u/L Absolute Lymphs (auto) (1.0-4.6) x10^3/uL Absolute Monos (auto) (0.0-1.3) x10^3/uL Absolute Nucleated RBC (0.00-0.01) x10^3u/L Lymphocytes % (24.0-44.0) % Monocytes % (0.0-12.0) % Eosinophils % (0.00-5.0) % Basophils % (0.0-0.4) % Absolute Granulocytes (1.4-6.9) x10^3/uL Basophils # (0-0.4) x10^3/uL PT (9.4-12.5) SECONDS INR (0.8-3.0) pO2/FiO2 Ratio % VBG pH (7.32-7.42) VBG pCO2 at Pat Temp (42-55) mm/Hg VBG pO2 at Pat Temp (25-40) mm/Hg VBG HCO3 (22-28) meq/L VBG O2 Sat ([place]) (95-100) VBG Base Excess (-2.0-2.0) VBG Hemoglobin VBG Carboxyhemoglobin (0.0-6.9) % T HGB POC Potassium (3.5-5.1) Sodium (137-145) mmol/L Potassium (3.5-5.1) mmol/L Chloride (98-107) mmol/L Carbon Dioxide (22-30) mmol/L Anion Gap (5-15) MEQ/L BUN (9-20) mg/dL Creatinine (0.66-1.25) mg/dL Estimated GFR ML/MIN Glucose (74-106) mg/dL Lactic Acid (0.4-2.0) Calcium (8.4-10.2) mg/dL Total Bilirubin (0.2-1.3) mg/dL AST (17-59) U/L ALT (0-50) U/L Alkaline Phosphatase (38-126) U/L Serum Total Protein (6.3-8.2) g/dL Albumin (3.5-5.0) g/dL Urinalys Dipstick Clnc MAIN LAB Urine Color YELLOW (YELLOW) Urine Appearance CLEAR (CLEAR) Urine pH 6.0 (5-6) Ur Specific [place] 1.020 (1.005-1.025) POC Urine Protein Conf 30 (Negative) Urine Ketones SMALL-15 (NEGATIVE) Urine Nitrite NEGATIVE (NEGATIVE) Urine Bilirubin SMALL (NEGATIVE) Urine Urobilinogen 2 (0-1) mg/dL Urine Leukocytes NEGATIVE (NEGATIVE) Urine WBC (Auto) NONE (0-5) /HPF Urine RBC (Auto) NONE (0-2) /HPF U Hyaline Cast (Auto) 3-5 (0-2) /LPF U Epithel Cells (Auto) NONE (FEW) /HPF Urine Bacteria (Auto) NONE (NEGATIVE) /HPF Urine RBC NEGATIVE (0-5) Todd/ul Ur Culture Indicated? NO Urine Glucose NEGATIVE (NEGATIVE) mg/dL Influenza Type A Ag (NEGATIVE) Influenza Type B Ag (NEGATIVE) RSV (PCR) (Negative) SARS-CoV-2 (PCR) (NEGATIVE) Slides for Path Review ABO Group Rh Factor Antibody Screen (NEGATIVE) - Other Procedures and Tests Respiratory Therapy 09/13/22 04:27 Oxygen NASAL CANNULA 2 lpm Respiratory Therapy Assessment DAILY Assessment/Plan (1) Metastatic lung cancer (metastasis from lung to other site) Current Visit: Yes Status: Chronic Code(s): C34.90 - MALIGNANT NEOPLASM OF UNSP PART OF UNSP BRONCHUS OR LUNG (2) COPD (chronic obstructive pulmonary disease) Current Visit: No Status: Chronic Qualifiers: COPD type: unspecified COPD Qualified Code(s): J44.9 - Chronic obstructive pulmonary disease, unspecified Assessment & Plan: continues to smoke (3) Failure to thrive Current Visit: Yes Status: Chronic Assessment & Plan: Rehab - proper diet ,PT,OT etc Code(s): [id number] - (4) History of GI bleed Current Visit: Yes Status: Suspected Assessment & Plan: C/O dark stool day of admission. Code(s): Z87.19 - PERSONAL HISTORY OF OTHER DISEASES OF THE DIGESTIVE SYSTEM (5) Panic disorder Current Visit: Yes Status: Chronic Assessment & Plan: per sister Code(s): F41.0 - PANIC DISORDER [EPISODIC PAROXYSMAL ANXIETY]
[2022-09-13 17:35] LABS: Hematocrit 32.9 % (42-50); Hemoglobin 10.2 g/dL (12.5-18.0)
[2022-09-14] MEDS ORDERED: PATIENT OWN MEDICATION IH PRN (02:59)
[2022-09-14] MEDS: SODIUM CHLORIDE 0.9% W/ 40 mEq KCL 1000ML 1,000 ML IV SCH ×4 (03:36→22:56)
[2022-09-14] MEDS ORDERED: CEPACOL SORE THROAT LOZENGE PO PRN (04:59)
[2022-09-14] MEDS ORDERED: CHLORASEPTIC SPRAY 180 ML PO PRN (05:21)
[2022-09-14] MEDS: MORPHINE SULFATE 2 MG INJ IV PRN ×5 (06:19→21:26)
[2022-09-14] MEDS: DUONEB 0.5-3 MG/3 ml Neb IH SCH ×4 (06:49→19:04)
[2022-09-14] MEDS: Advair Hfa 115/21 Common canister IH SCH ×2 (06:51→19:13)
[2022-09-14] MEDS: NORCO 5/325 MG PO PRN ×4 (07:25→20:53)
[2022-09-14 07:41] LABS: Hematocrit 34.4 % (42-50); Hemoglobin 10.6 g/dL (12.5-18.0); Mean Cell Volume 85.8 fL (78-100); Mean Corpuscular Hemoglobin 26.4 pg (26-32); Mean Corpuscular Hgb Concent. 30.8 g/dL (32-36); Mean Platelet Volume 9.6 fL (7.5-11.0); Platelet Count 68 x10^3/uL (150-450); Red Blood Count 4.01 x10^6/uL (4.1-5.6); Red Cell Distribution Width 19.9 % (11.5-14.0); White Blood Count 5.9 x10^3/uL (4.0-10.5)
[2022-09-14 07:59] LABS: ALBUMIN 2.7 g/dL (3.5-5.0); ALKALINE PHOSPHATASE 489 U/L (38-126); ANION GAP 7.2 MEQ/L (5-15); BLOOD UREA NITROGEN 17 mg/dL (9-20); CHLORIDE 103 mmol/L (98-107); Calcium 7.7 mg/dL (8.4-10.2); Carbon Dioxide 28 mmol/L (22-30); Creatinine 1 0.79 mg/dL (0.66-1.25); EST GLOMERULAR FILTRATION RATE > 60.0 ML/MIN; Glucose 105 mg/dL (74-106); Potassium 4.3 mmol/L (3.5-5.1); SGOT/AST 36 U/L (17-59); SGPT/ALT 21 U/L (0-50); SODIUM 133 mmol/L (137-145); Total Protein 6.2 g/dL (6.3-8.2)
[2022-09-14] MEDS: MSIR 15 MG PO SCH ×2 (09:08→21:26)
[2022-09-14] MEDS: Effexor XR 75 MG PO SCH (09:08)
[2022-09-14] MEDS: Pepcid 20 MG PO SCH ×2 (09:08→21:26)
[2022-09-14] MEDS: Cardizem CD PO SCH (09:08)
[2022-09-14] MEDS: Nicoderm CQ 21 MG TOP SCH (09:08)
[2022-09-14] MEDS: AMITRIPTYLINE 25 MG TABLET PO SCH (09:08)
[2022-09-14] MEDS: PROTONIX 40 MG IV IV SCH (09:09)
[2022-09-14 11:17] LABS: ANISOCYTOSIS 1+; BAND 21 % (0.0-2.0); Hypochromia 1+; Lymphocytes 2 % (24-44); Monocyte 1 % (0.0-12.0); Platelet Estimate DECREASED (NORMAL); Total Cells Counted 100
--- NOTE | 2022-09-14 13:20 | PCM.NOTE ---
Date and Time: 09/14/22 1316 Subjective Assessment: Patient spiked low grade fever yesterday without other symptoms and blood cultures were drawn. No fever now. Discussed need for rehab before any more cancer treatment. Patient not happy with this but understands it is needed. OBJECTIVE DATA Vital Signs: Vital Signs - 24 hr Temp Pulse Resp BP Pulse Ox 09/14/22 11:32 98.9 F 75 20 92/69 93 L 09/14/22 10:54 69 20 91 L 09/14/22 08:00 99.1 F 129 H 22 122/83 87 L 09/14/22 06:51 96 H 20 89 L 09/14/22 04:00 97.3 F 101 H 16 141/75 93 L 09/13/22 23:11 98.3 F 120 H 28 H 132/83 97 09/13/22 20:04 78 22 90 L 09/13/22 19:04 99.3 F 71 22 132/73 90 L 09/13/22 16:00 100.0 F 113 H 14 129/78 93 L 09/13/22 15:14 120 H 16 94 L Pain Assessment - Last Documented Pain Intensity 10 Pain Scale Used 0-10 Pain Scale Intake and Output: Intake & Output 09/12/22 09/13/22 09/14/22 09/15/22 11:59 11:59 11:59 11:59 Intake Total 100 2692 100 Output Total 50 1075 100 Balance 50 1617 0 Weight 42.8 kg Lab Results: Lab Results-Last 24 Hours 09/13/22 09/14/22 09/14/22 Range/Units 17:10 07:35 07:35 WBC 5.9 (4.0-10.5) x10^3/uL RBC 4.01 L (4.1-5.6) x10^6/uL Hgb 10.2 L 10.6 L (12.5-18.0) g/dL Hct 32.9 L 34.4 L (42-50) % MCV 85.8 (78-100) fL MCH 26.4 (26-32) pg MCHC 30.8 L (32-36) g/dL RDW 19.9 H (11.5-14.0) % Plt Count 68 L D (150-450) x10^3/uL MPV 9.6 (7.5-11.0) fL Segmented Neutrophils 76 H (36.-66.) % Band Neutrophils 21 H (0.0-2.0) % Lymphocytes (Manual) 2 L (24-44) % Monocytes (Manual) 1 (0.0-12.0) % Hypochromia 1+ Platelet Estimate DECREASED (NORMAL) RBC Morphology NORMAL Anisocytosis 1+ Sodium 133 L (137-145) mmol/L Potassium 4.3 (3.5-5.1) mmol/L Chloride 103 (98-107) mmol/L Carbon Dioxide 28 (22-30) mmol/L Anion Gap 7.2 (5-15) MEQ/L BUN 17 (9-20) mg/dL Creatinine 0.79 (0.66-1.25) mg/dL Estimated GFR > 60.0 ML/MIN Glucose 105 (74-106) mg/dL Calcium 7.7 L (8.4-10.2) mg/dL Total Bilirubin 1.00 (0.2-1.3) mg/dL AST 36 (17-59) U/L ALT 21 (0-50) U/L Alkaline Phosphatase 489 H (38-126) U/L Serum Total Protein 6.2 L (6.3-8.2) g/dL Albumin 2.7 L (3.5-5.0) g/dL Multi-Disciplinary Progress Notes: Multi-Disciplinary Progress Notes 09/14/22 10:45 Case Management Note by Pallavi Alexis REFERRAL FAXED TO [facility] Initialized on 09/14/22 10:45 - END OF NOTE 09/14/22 09:30 Case Management Note by Pallavi Alexis S/W PATIENT'S SISTER AND DR. PENNY 09/13. PATIENT NEEDS TO HOLD ON CANCER TREATMENT D/T DEBILITATED STATE. SISTER REPORTEDLY WOULD LIKE PATIENT TO GO TO [facility] FOR REHAB. S/W PATIENT ABOUT THIS. PATIENT INITIALLY UPSET THAT HIS SISTER RECOMMENDED THIS HOWEVER AFTER EXPLAINING PATIENT'S CURRENT STATE AND OPTIONS- PATIENT AGREEABLE TO GO TO REHAB AT [facility]. Initialized on 09/14/22 09:30 - END OF NOTE Assessment/Plan (1) Metastatic lung cancer (metastasis from lung to other site) Current Visit: Yes Status: Chronic Code(s): C34.90 - MALIGNANT NEOPLASM OF UNSP PART OF UNSP BRONCHUS OR LUNG (2) COPD (chronic obstructive pulmonary disease) Current Visit: No Status: Chronic Qualifiers: COPD type: unspecified COPD Qualified Code(s): J44.9 - Chronic obstructive pulmonary disease, unspecified (3) Failure to thrive Current Visit: Yes Status: Chronic Code(s): [id number] - (4) History of GI bleed Current Visit: Yes Status: Suspected Code(s): Z87.19 - PERSONAL HISTORY OF OTHER DISEASES OF THE DIGESTIVE SYSTEM (5) Panic disorder Current Visit: Yes Status: Chronic Code(s): F41.0 - PANIC DISORDER [EPISODIC PAROXYSMAL ANXIETY]
[2022-09-14] MEDS ORDERED: THIAMINE 200 MG/2 ML*** 100 MG, Vitamins For Infusion 10 ML INJECTION*** 10 ML, FOLNATE... IV SCH ×4 (13:30)
[2022-09-15] MEDS: MORPHINE SULFATE 2 MG INJ IV PRN ×8 (01:12→22:33)
[2022-09-15] MEDS: NORCO 5/325 MG PO PRN ×2 (02:31→07:41)
[2022-09-15] MEDS: DUONEB 0.5-3 MG/3 ml Neb IH SCH ×4 (06:44→19:05)
[2022-09-15] MEDS: Advair Hfa 115/21 Common canister IH SCH ×2 (06:44→22:32)
[2022-09-15] MEDS: SODIUM CHLORIDE 0.9% W/ 40 mEq KCL 1000ML 1,000 ML IV SCH ×2 (08:48→18:20)
[2022-09-15] MEDS: Nicoderm CQ 21 MG TOP SCH (08:50)
[2022-09-15] MEDS ORDERED: Ativan 2 MG/1 ML VIAL IV ONE (09:27)
[2022-09-15] MEDS ORDERED: Ativan 1 MG PO PRN (09:27)
[2022-09-15] MEDS: PROTONIX 40 MG IV IV SCH (10:00)
[2022-09-15] MEDS: Ativan 2 MG/1 ML VIAL IV PRN ×5 (13:39→22:32)
[2022-09-15] MEDS: AMITRIPTYLINE 25 MG TABLET PO SCH (13:53)
[2022-09-15] MEDS: Cardizem CD PO SCH (13:53)
[2022-09-15] MEDS: Pepcid 20 MG PO SCH (13:53)
[2022-09-15] MEDS: MSIR 15 MG PO SCH (13:53)
[2022-09-15] MEDS: Effexor XR 75 MG PO SCH (13:53)
[2022-09-15] MEDS: ATROPINE SULFATE EYE DROPS PO PRN ×2 (16:57→22:30)
[2022-09-16] MEDS: MSIR 15 MG PO SCH ×2 (00:04→09:16)
[2022-09-16] MEDS: Pepcid 20 MG PO SCH ×2 (00:05→09:16)
[2022-09-16] MEDS: Ativan 2 MG/1 ML VIAL IV PRN ×10 (00:36→20:41)
[2022-09-16] MEDS: MORPHINE SULFATE 2 MG INJ IV PRN ×6 (00:36→12:14)
[2022-09-16] MEDS: SODIUM CHLORIDE 0.9% W/ 40 mEq KCL 1000ML 1,000 ML IV SCH ×2 (03:00→21:26)
[2022-09-16] MEDS: ATROPINE SULFATE EYE DROPS PO PRN (06:12)
[2022-09-16] MEDS: DUONEB 0.5-3 MG/3 ml Neb IH SCH ×2 (06:57→11:13)
[2022-09-16] MEDS: Advair Hfa 115/21 Common canister IH SCH (07:41)
[2022-09-16] MEDS: Cardizem CD PO SCH (09:16)
[2022-09-16] MEDS: Effexor XR 75 MG PO SCH (09:16)
[2022-09-16] MEDS: AMITRIPTYLINE 25 MG TABLET PO SCH (09:16)
[2022-09-16] MEDS: PROTONIX 40 MG IV IV SCH (10:14)
[2022-09-16] MEDS: Nicoderm CQ 21 MG TOP SCH (10:30)
[2022-09-16 12:24] VITALS: O2SAT 68
[2022-09-16] MEDS ORDERED: MORPHINE SULFATE 2 MG INJ IV PRN (12:31)
[2022-09-16] MEDS: MORPHINE SULFATE 4 MG INJ IV PRN ×4 (14:17→20:41)
[2022-09-16 21:07] VITALS: BP 71/36; PULSE 126
== END 2022-09-16 22:30 | disposition expired ==
LOC: ED 00:55 → MED SURG 03:55
PROVIDERS: ADMIT Family Medicine; ATTEND Family Medicine
DX: C34.90 Malignant neoplasm of unspecified part of unspecified bronchus or lung (principal); J44.9 Chronic obstructive pulmonary disease, unspecified; R62.7 Adult failure to thrive; K92.1 Melena; F41.0 Panic disorder [episodic paroxysmal anxiety]; R50.9 Fever, unspecified; R00.0 Tachycardia, unspecified; Z79.899 Other long term (current) drug therapy; Z20.828 Contact with and (suspected) exposure to other viral communicable diseases; Z72.0 Tobacco use; Z87.19 Personal history of other diseases of the digestive system
CPT/HCPCS: 0241U; 36000; 36415; 80053; 81015; 82805; 83605; 85014; 85018; 85025; 85610; 86850; 86900; 86901; 87040; 93005; 93041; 93268; 94640; 94760; 96374; 96375; 97161; 99285; G0378; J2060; J2270; J2405; J3480; A9270-GY